=== PATIENT | male | born 1940 | race Caucasian/White ===

== ENCOUNTER → 2019-12-27 10:34 | Outpatient (BNVA) | payer MEDICARE, SELFPAY | PROVIDERS: PCP Internal Medicine Medical Oncology; Referring Provider Internal Medicine Medical Oncology; Visit Provider Internal Medicine Medical Oncology | DX: I48.20 Chronic atrial fibrillation, unspecified (principal); Z51.81 Encounter for therapeutic drug level monitoring; Z79.01 Long term (current) use of anticoagulants | CPT/HCPCS: 85610; 99211 ==

== ENCOUNTER 2020-01-03 16:24 | Emergency (ER) | payer MEDICARE, SELFPAY ==
--- NOTE | 2020-01-03 | XR_ITS ---
EXAMINATION: XR KNEE, RIGHT CLINICAL INFORMATION: Swelling COMPARISON: None TECHNIQUE: Two views of the right knee. FINDINGS: There is a large joint effusion. 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 There is no significant bone erosion. There is no fracture. There is no dislocation. Surgical clips seen at the posterior medial side of the knee. There is vascular stent at the posterior upper calf. IMPRESSION: 1. No acute abnormality. 2. Large joint effusion. 3. 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
--- NOTE | 2020-01-03 | US_ITS ---
EXAMINATION: US LOWER EXTREMITY VENOUS, RIGHT CLINICAL INFORMATION: Edema COMPARISON: None. TECHNIQUE: Doppler spectral analysis and color flow Doppler imaging was performed of the right lower extremity. Compression and augmentation maneuvers were performed. FINDINGS: Lower extremity venous ultrasound demonstrates no evidence of DVT. The common femoral, femoral, popliteal and calf veins were well identified and normal. They demonstrate normal compressibility and color fill-in. IMPRESSION: No evidence for a lower extremity deep vein thrombosis.
[2020-01-03 16:44] VITALS: BP 197/87; PULSE 75; RESP 20; TEMP 36; O2SAT 96; BMI 24.2
--- NOTE | 2020-01-03 17:19 | ED.EXTPRO ---
HPI - Extremity Problem General Chief complaint: Extremity Problem Stated complaint: r knee pain Time Seen by Provider: 01/03/20 17:14 Source: patient Mode of arrival: ambulatory Limitations: no limitations History of Present Illness HPI Narrative: 71-year-old male presents with several hours of right knee swelling. Stated that he went for a walk afternoon, started feeling pain is in his knee and noticed swelling around 1:00 p.m.. He did apply ice, took some Tylenol, however the swelling kept increasing along with the pain. He is unable to walk on it because of the pain. He does have a history of rheumatoid arthritis and has stents in his right leg. he does not report any chest pain or pressure, palpitations, shortness of breath, abdominal pain, abdominal distention, dysuria, hematuria, fevers and chills. He did not report any shortness of breath on exertion, or pain on inspiration. MD Complaint: extremity pain and extremity swelling Onset (ago): hour(s) ( 4 hours ago) Pain Consistency: constant Location: right and knee Severity scale (1-10): 9 Quality: aching and constant Radiation: none Relieving factors: nothing Exacerbating factors: range of motion, weight bearing, walking and exertion Associated symptoms: denies other symptoms Context: other ( rheumatoid arthritis, lower extremity stents) Related Data Previous Rx's Medication Instructions Recorded warfarin 1 mg tablet 1 mg PO DAILY #90 tab 12/28/19 oxycodone 5 mg PO Q8H PRN #10 tab 01/03/20 Allergies Allergy/AdvReac Type Severity Reaction Status Date / Time Ionidcg-Ijr-Szt Reductase AdvReac Mild LEG Unverified 12/13/19 15:01 Inhibitor PAIN/NUMBNESS/RESTLESSLESS [[id number] REDUCTASE INHIBITOR] Review of Systems Review of Systems: Yes all other systems are reviewed and are negative Constitutional: Constitutional: Reports no additional constitutional complaints Eyes: Eyes: Reports no additional eye complaints ENT: Reports system reviewed and no additional complaints, except as documented Cardiovascular: Cardiovascular: Reports no additional cardiovascular complaints Respiratory: Respiratory: Reports no additional respiratory complaints Gastrointestinal: Gastrointestinal: Reports no additional gastrointestinal complaints Genitourinary: Genitourinary: Reports no additional male genitourinary complaints Musculoskeletal: Musculoskeletal: Reports abnormal gait, Reports arthralgias, Reports joint swelling and Reports limited range of motion Integumentary/Breasts: Skin/Breast: Reports system reviewed and no additional complaints, except as docu Neurologic: Reports system reviewed and no additional complaints, except as documented and Reports abnormal gait Psychiatric: Psychiatric: Reports no additional psychiatric complaints Endocrine: Endocrine: Reports no additional endocrine complaints Hematologic/Lymphatic: Hematologic/Lymphatic: Reports no additional hematologic/lymphatic complaints [facility] Past Medical History Attestation statement: The following information was validated with the patient. Source: old records reviewed Medical History Atrial fibrillation Coronary artery disease Surgical History H/O cardiac catheterization H/O coronary artery bypass surgery Social History Social History Smoked in Last 30 Days: No Use of substances other than those prescribed or required for medical reasons: No Advance Directives: No Advance Directives Information Provided: Yes Physical Exam Vital Signs and I&O and Narrative: Vital Signs and I&O: Vital Signs Temp 96.8 F 01/03/20 16:44 Pulse 75 01/03/20 16:44 Resp 16 01/03/20 18:42 BP 197/87 H 01/03/20 16:44 Pulse Ox 96 01/03/20 16:44 Intake & Output 01/03/20 01/03/20 01/04/20 06:59 18:59 06:59 Weight 80.931 kg Body Mass Index 24.2 Const: General: cooperative, healthy appearing, comfortable, well developed, alert, awake, Physically active and acute distress moderate ( pain) Nutritional Appearance: average body habitus and well nourished Orientation/consciousness: patient oriented x3 Limitations: no limitations HENMT: Head: Yes normal to inspection Ears: hearing grossly normal bilaterally General nose exam: Normal external nose present Face and sinus: Yes normal facial exam Mouth: Normal oral and palatal mucosa present Throat: Yes posterior oropharynx normal, Yes tonsils normal and Yes uvula midline Eyes: General: appearance normal, both eyes and all related structures Pupils: Equal, round and reactive pupils present EOM: EOMs intact bilaterally Neck: Neck: Yes normal visual inspection, Yes full ROM and Yes no lymphadenopathy Chest: Chest palpation & inspection: normal inspection of the chest and normal palpation of entire chest wall Resp: Effort & Inspection: normal respiratory effort and able to speak in complete sentences Auscultation: clear to auscultation bilaterally Cardio: Jugular venous distension: no JVD Rate: regular rate Rhythm: regular rhythm Heart sounds: S1 normal heart sound present and S2 normal heart sound present GI: Inspection: Yes normal to inspection Skin: General skin exam: no rashes or lesions noted Neuro: General: patient oriented x3 and gait normal Cranial nerves: Yes CN's II-XII intact bilaterally, Yes Facial sensation intact/muscles of mastication intact, Yes Intact sense of smell present and Yes Equal, round and reactive pupils present Cognition (Neuro): normal cognition Motor exam (neuro): 5/5 motor strength present throughout Extrem: General: Yes normal to inspection, Yes full ROM, Yes capillary refill normal and Yes normal exam except as noted Right lower extremity: normal capillary refill and knee Details: tenderness Location: of the patella, of the pre-patellar area and of the infrapatellar area, swelling Location: of the patella, of the pre-patellar area and of the infrapatellar area and abnormal ROM Details: pain with active ROM during and pain with passive ROM during Psych: Appearance: grossly normal Mental Status: mental status grossly normal Speech and movement: Normal speech and movement present Affect: normal affect Attitude: cooperative Thought process: Normal thought process present Course Course Course Narrative: 79-year-old male with past medical history of AFib, rheumatoid arthritis, history of CABG presents with right knee swelling that started 4 hours prior to arrival. Patient has taken Tylenol and use ice and elevation to help reduce swelling with poor effect. We will order x-rays, venous duplex, CBC, Chem 7. tiger text discussion with Dr. Brewer, plan of care is for patient to follow-up with orthopedics for large knee effusion, suspected to be heme. His INR is 3.4 at this time, which contraindicate its tapping at this time. we will Juan Antonio wrap and provide pain management. MDM - Extremity (Nontraumatic) MDM Narrative Medical decision making narrative: hemarthrosis, effusion Differential Diagnosis Differential diagnosis: Likely gout, cellulitis, superficial thrombophlebitis and deep vein thrombosis of lower extremity Medical Records Attestation: I reviewed the patient's medical records. Lab Data Attestation: I reviewed the patient's lab results. Result diagrams: 01/03/20 18:31 01/03/20 18:31 Labs: Lab Results 01/03/20 01/03/20 01/03/20 Range/Units 18:31 18:31 18:31 WBC 10.8 (4.8-10.8) X10*3/uL RBC 4.05 L (4.60-5.80) X10*6/uL Hgb 11.9 L (14.0-18.0) g/dl Hct 36.2 L (42-52) % MCV 89.4 (80-98) fL MCH 29.4 (27.0-33.0) pg MCHC 32.9 (31.0-36.0) g/dl RDW 16.5 H (11.0-16.0) % Plt Count 328 (160-400) X10*3/uL MPV 8.7 L (9.4-12.4) fL Immature Gran % (Auto) 0.4 (0.0-0.4) % Neut % (Auto) 74.8 H (45-73) % Lymph % (Auto) 7.5 L (20-40) % [place] % (Auto) 15.7 H (2-11) % Eos % (Auto) 1.1 (0-4) % Baso % (Auto) 0.5 (0-2) % Lymph # (Auto) 0.8 L (1.2-4.9) X10*3/uL [place] # (Auto) 1.7 H (0.1-1.2) X10*3/uL Eos # (Auto) 0.1 (0.0-0.4) X10*3/uL Baso # (Auto) 0.1 (0.0-0.2) X10*3/uL Abs Immat Gran (auto) 0.04 H (0.00-0.03) X10*3/uL Absolute Neuts (auto) 8.1 (2.0-8.3) X10*3/uL Absolute Nucleated RBC 0.000 (0.0-0.012) X10*3/uL Nucleated RBC % (auto) 0.0 (0.0-0.2) /100WBC Smear Tech's Comments VERIFIED PT 40.3 H (10.8-13.0) SEC INR 3.4 H (0.9-1.1) APTT 53.3 H (24.1-38.0) SEC Sodium 137 (135-145) mmol/L Potassium 4.1 (3.3-5.1) mmol/l Chloride 105 (96-108) mmol/L Carbon Dioxide 19 L (22-29) mmol/L Anion Gap 17 (12-20) BUN 20 H (9-16) mg/dL Creatinine 1.17 (0.5-1.4) mg/dL Estim Creat Clear Calc 57.1 Estimated GFR > 60 Random Glucose 130 H (60-115) mg/dL Calcium 8.8 (8.4-10.2) mg/dL Imaging Data Venous US: Attestation: I personally reviewed and interpreted this imaging study as follows: Radiologist's impression: TECHNIQUE: Doppler spectral analysis and color flow Doppler imaging was performed of the right lower extremity. Compression and augmentation maneuvers were performed. FINDINGS: Lower extremity venous ultrasound demonstrates no evidence of DVT. The common femoral, femoral, popliteal and calf veins were well identified and normal. They demonstrate normal compressibility and color fill-in. IMPRESSION: No evidence for a lower extremity deep vein thrombosis. right knee x-ray: Attestation: I personally reviewed and interpreted this imaging study as follows: Radiologist's impression: FINDINGS: There is a large joint effusion. 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 There is no significant bone erosion. There is no fracture. There is no dislocation. Surgical clips seen at the posterior medial side of the knee. There is vascular stent at the posterior upper calf. IMPRESSION: 1. No acute abnormality. 2. Large joint effusion. 3. 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 Discharge Plan Discharge Clinical Impression: Effusion of bursa of right knee, Current use of anticoagulant therapy Patient Disposition: Home, Self-Care Instructions: Swollen Knee Joint (ED) Additional Instructions: you were evaluated for right knee swelling and pain. This is suspected to be a hemarthrosis, which is bleeding in the joint of the right knee. You have had similar episodes in the past. I contacted Dr. Brewer, and he would like to see you in the office tomorrow. please call and make an appointment. please use Juan Antonio wrap to keep pressure on the knee. I prescribed oxycodone which is a narcotic. This medication has high risk for addiction and abuse. This medication increases risk for falls, causes constipation, delays reaction time, and may cause drowsiness. Drink plenty of fluids, use Colace or MiraLax as needed keep stool soft. Do not drive or operate machinery while taking this medication. Your INR was 3.4. Please follow-up with whoever prescribes your Coumadin for Coumadin titration. Thank you for choosing this emergency department for evaluation. Please follow-up with primary care physician as needed. Return to the emergency department for any new, concerning, or worsening symptoms. Prescriptions: New oxycodone 5 mg tablet 5 mg PO Q8H PRN (Reason: pain) Qty: 10 RF: 0 No Action warfarin 1 mg tablet 1 mg PO DAILY Qty: 90 RF: 0 Referrals: Enrique Brewer MD [Physician] - 2 days ( large right knee effusion, suspected to be heme)
[2020-01-03 18:38] LABS: Basophils Absolute Auto 0.1 X10*3/uL (0.0-0.2); Basophils Percent Auto 0.5 % (0-2); Eosinophils Absolute Auto 0.1 X10*3/uL (0.0-0.4); Eosinophils Percent Auto 1.1 % (0-4); Hematocrit 36.2 % (42-52); Hemoglobin 11.9 g/dl (14.0-18.0); Imm Gran Abs Auto 0.04 X10*3/uL (0.00-0.03); Imm Gran Pct Auto 0.4 % (0.0-0.4); Lymphocytes Absolute Auto 0.8 X10*3/uL (1.2-4.9); Lymphocytes Percent Auto 7.5 % (20-40); MANUAL DIFF FLAG SCAN; Mean Corpuscular HGB Conc 32.9 g/dl (31.0-36.0); Mean Corpuscular Hemoglobin 29.4 pg (27.0-33.0); Mean Corpuscular Volume 89.4 fL (80-98); Mean Platelet Volume 8.7 fL (9.4-12.4); Monocytes Absolute Auto 1.7 X10*3/uL (0.1-1.2); Monocytes Percent Auto 15.7 % (2-11); Neutrophils Absolute Auto 8.1 X10*3/uL (2.0-8.3); Neutrophils Percent Auto 74.8 % (45-73); Platelet Count 328 X10*3/uL (160-400); Red Blood Count 4.05 X10*6/uL (4.60-5.80); Red Cell Distribution Width 16.5 % (11.0-16.0); SCAN SMEAR FLAG 1; White Blood Count 10.8 X10*3/uL (4.8-10.8)
[2020-01-03 18:42] VITALS: RESP 16
[2020-01-03] MEDS: Morphine Sulfate 4 MG/ML CARTRIDGE 2 MG IVPUSH (18:42)
[2020-01-03] MEDS: ondansetron HCL 4 MG/2 ML VIAL IVPUSH (18:42)
[2020-01-03 18:44] LABS: INTERNATIONAL NORM RATIO 3.4 (0.9-1.1); Prothrombin Time 40.3 SEC (10.8-13.0)
[2020-01-03 18:46] LABS: Partial Thromboplastin Time 53.3 SEC (24.1-38.0)
[2020-01-03 18:56] LABS: SLIDE REVIEW VERIFIED
[2020-01-03 19:09] LABS: Anion Gap 17 (12-20); Blood Urea Nitrogen 20 mg/dL (9-16); Calcium 8.8 mg/dL (8.4-10.2); Carbon Dioxide 19 mmol/L (22-29); Chloride 105 mmol/L (96-108); Creatinine Clr Calc Pharmacy 57.1; Estimated Glomerular Filt Rate > 60; Glucose Random 130 mg/dL (60-115); Potassium 4.1 mmol/l (3.3-5.1); Sodium 137 mmol/L (135-145)
[2020-01-03] MEDS: oxyCODONE HCl Immed Release 5 MG TABLET PO (19:50)
== END 2020-01-03 20:30 | disposition home or self-care (01) ==
PROVIDERS: Nurse Practitioner Family; Emergency Provider Emergency Medicine; PCP Internal Medicine Medical Oncology
DX: M25.461 Effusion, right knee (principal); M79.604 Pain in right leg; M25.561 Pain in right knee; I48.91 Unspecified atrial fibrillation; Z79.01 Long term (current) use of anticoagulants
CPT/HCPCS: 36415; 73560; 80048; 85025; 85610; 85730; 93971; 99283; 99284; J2270; J2405

== ENCOUNTER → 2020-01-04 11:57 | Outpatient (BNVA) | payer MEDICARE, SELFPAY | PROVIDERS: PCP Internal Medicine Medical Oncology; Visit Provider Orthopaedic Surgery | DX: M25.061 Hemarthrosis, right knee (principal); M25.561 Pain in right knee; I48.91 Unspecified atrial fibrillation; Z79.01 Long term (current) use of anticoagulants | CPT/HCPCS: 20610; 99213 ==

== ENCOUNTER 2020-01-05 16:07 | Emergency (ER) | payer MEDICARE, SELFPAY ==
[2020-01-05 16:10] VITALS: BP 133/70; PULSE 70; RESP 18; TEMP 36.6; O2SAT 99; BMI 24.2
--- NOTE | 2020-01-05 16:30 | PC.NURSE ---
PT STATES HE HAS HAD HIS RIGHT NOSTRIL BLEEDING FOR SINCE 2PM.
[2020-01-05] MEDS: Tranexamic Acid 1,000 MG/10 ML VIAL 500 MG INTRANASAL (17:11)
--- NOTE | 2020-01-05 17:27 | ED.GENADULT ---
HPI - General Adult General Chief complaint: General Medical Stated complaint: nose bleeding Time Seen by Provider: 01/05/20 16:37 History of Present Illness HPI narrative: patient complains of nose bleed times for 5 hours today that is just been bleeding slowly but continuously At home he has tried Afrin spray with no success, he also applied pressure for 15 minutes several times with no success, he is not dizzy or weak, he is not bleeding from any other site he has no new rash no new bruising The patient is on Coumadin and just 2 days ago his INR was 3.4, he has been taking the same Coumadin dose for many months Related Data Previous Rx's Medication Instructions Recorded warfarin 1 mg tablet 1 mg PO DAILY #90 tab 12/28/19 oxycodone 5 mg PO Q8H PRN #10 tab 01/03/20 Allergies Allergy/AdvReac Type Severity Reaction Status Date / Time Lnwcsnp-Pef-Zpx Reductase AdvReac Mild LEG Verified 01/04/20 12:07 Inhibitor PAIN/NUMBNESS/RESTLESSLESS [[id number] REDUCTASE INHIBITOR] Review of Systems Review of Systems: patient has no headache patient is not dizzy or weak, no chest pain no shortness of breath no rash no bruising no bleeding from any other site, no rectal bleeding, no abdominal pain no vomiting Yes all other systems are reviewed and are negative PMFSH Past Medical History Medical History (Updated 01/05/20 @ 18:11 by GRAHAM Cagle) Atrial fibrillation Coronary artery disease Hemarthrosis, right knee Surgical History H/O cardiac catheterization H/O coronary artery bypass surgery Social History Social History Alcohol intake: never Smoking Status: Former smoker Smoked in Last 30 Days: No Use of substances other than those prescribed or required for medical reasons: No Advance Directives: No Advance Directives Information Provided: Yes Physical Exam Vital Signs: Vital Signs: Vital Signs Temp Pulse Resp BP Pulse Ox 01/05/20 16:10 97.9 F 70 18 133/70 99 Body Mass Index 24.2 patient is A&O x3, no acute distress, cheerful and cooperative Patient is normocephalic atraumatic The nose is bleeding from the right nostril very slightly but continuously, the bleeding source is not identified The neck is supple The pharynx is clear with no bleeding No respiratory distress Abdomen is soft nontender Skin there are no rashes, no other bleeding Neuro A&O x3, no focal deficit Course Course Course Narrative: we tried to stop the slow bleeding with Tx a soaked gauze and direct pressure with a clip and left that for about 15 minutes when removed it there was again slow bleeding from the right nostril The patient remains comfortable cheerful no dizziness no weakness Rhino rocket was inserted and patient was observed for 15 minutes with no further bleeding and was discharged home INR was checked and it was 4.2 and patient was advised to not take his next dose of Coumadin and to call his Coumadin tip clinic for further advice on dosing Medical Decision Making Lab Data Labs: Lab Results 01/05/20 Range/Units 17:32 PT 50.4 H D (10.8-13.0) SEC INR 4.2 H (0.9-1.1) Discharge Plan Discharge Clinical Impression: Acute anterior epistaxis Patient Disposition: Home, Self-Care Additional Instructions: we placed packing in her nose and this should be removed in 2 days on Tuesday or Tuesday so return to the ER in 2 days for packing removal Return any time for bleeding, any worse condition any concerns Her INR was 4.2 so hold her next dose of Coumadin and call the Coumadin Clinic for advice on dosing Prescriptions: No Action oxycodone 5 mg tablet 5 mg PO Q8H PRN (Reason: pain) Qty: 10 RF: 0 warfarin 1 mg tablet 1 mg PO DAILY Qty: 90 RF: 0
--- NOTE | 2020-01-05 17:34 | PC.NURSE ---
PT HAD PS KENNEDI SPRAY RIGHT NOSTRIL WITH TRANEXAMIC ACID AND THEN GAUZE WITH NOSE CLAPS PLACED TO HOLD AREA IN PLACE.
[2020-01-05 17:45] LABS: INTERNATIONAL NORM RATIO 4.2 (0.9-1.1); Prothrombin Time 50.4 SEC (10.8-13.0)
--- NOTE | 2020-01-05 18:02 | PC.NURSE ---
PT STILL BLEEDING AFTER MEDICATION TO NOSE. GRAHAM KOLB PLACED RHINO ROCKET TO RIGHT NOSTRILE.
== END 2020-01-05 18:27 | disposition home or self-care (01) ==
PROVIDERS: Physician Assistant Medical; Emergency Provider Emergency Medicine Emergency Medical Services; PCP Internal Medicine Medical Oncology
DX: R04.0 Epistaxis (principal); Z87.891 Personal history of nicotine dependence
CPT/HCPCS: 36415; 85610; 99283; 99284

== ENCOUNTER 2020-01-07 09:23 | Emergency (ER) | payer MEDICARE, SELFPAY ==
[2020-01-07 09:38] VITALS: PULSE 85; RESP 16; TEMP 36.9; O2SAT 96; BMI 23.5
--- NOTE | 2020-01-07 09:55 | ED.EPISTAXIS ---
History of Present Illness General Chief Complaint: Epistaxis Stated Complaint: packing removal Time Seen by Provider: 01/07/20 09:55 Source: patient Mode of arrival: ambulatory Limitations: no limitations History of Present Illness Location: Yes right nares Onset/current episode: Yes day(s) (resolved was seen 3 days ago) Duration: Yes now resolved Pertinent past history: Yes other (on coumadin) Context: Yes history of previous nose bleed Treatment prior to arrival: Yes other (on Tuesday had nasal packing placed) Related Data Previous Rx's Medication Instructions Recorded warfarin 1 mg tablet 1 mg PO DAILY #90 tab 12/28/19 oxycodone 5 mg PO Q8H PRN #10 tab 01/03/20 Allergies Allergy/AdvReac Type Severity Reaction Status Date / Time Pwumktj-Yvm-Eoi Reductase AdvReac Mild LEG Verified 01/04/20 12:07 Inhibitor PAIN/NUMBNESS/RESTLESSLESS [[id number] REDUCTASE INHIBITOR] Review of Systems Review of Systems: Constitutional : No Fever, No Chills ENT/Mouth : No Ear Pain, positive Nasal Congestion, no nose bleed Eyes: No Eye Pain, No Swelling, No Redness Cardiovascular : No Chest Pain, No SOB Respiratory : No Cough, No Sputum Gastrointestinal : No Nausea, No Vomiting Genitourinary : No Dysuria, No Hematuria Musculoskeletal : No joint pain, No Myalgias Skin : No Skin Lesions, No rash Neuro : No Weakness, No Numbness, No headache Psych : No Anxiety/Panic, No Depression PMFSH Past Medical History Medical History (Updated 01/07/20 @ 09:58 by Kristine Jewell DO) Atrial fibrillation Coronary artery disease Hemarthrosis, right knee Surgical History (Updated 01/07/20 @ 09:58 by Kristine Jewell DO) H/O cardiac catheterization H/O coronary artery bypass surgery Heart valve replaced Social History Social History Alcohol intake: never Smoking Status: Former smoker Smoked in Last 30 Days: No Use of substances other than those prescribed or required for medical reasons: No Advance Directives: Yes Advance Directives Information Provided: Yes Advance Directives on File: No Physical Exam Vital Signs: Vital Signs: Vital Signs Temp Pulse Resp Pulse Ox 01/07/20 09:38 98.4 F 85 16 96 Body Mass Index 23.5 Appearance: Alert. Oriented X3. No acute distress. Eyes: Pupils equal, round and reactive to light. ENT: Pharynx normal. packing R nare no active bleeding nose or mouth Neck: Normal inspection. Neck supple. CVS: Normal rhythm Pulses normal. Respiratory: No respiratory distress. Breath sounds normal. Abdomen: Soft and nontender. Skin: Skin warm and dry. Normal skin color. Normal skin turgor. Extremities: No lower extremity edema. No calf ttp Neuro: Oriented X 3. No motor deficit. No sensory deficit. Course Course Course Narrative: removed packing after deflating balloon for 15 minutes, no bleeding recheck normal, stable for DC Procedures Foreign Body Removal Time Out Performed: yes Site: right and nare Description of foreign body: other (nasal packing) Sedation/Analgesia: none Technique: manual removal Confirmed by:: direct visualization Complications: none Post-procedure exam: awake, alert Neurovascular: normal distal pulse MDM - Epistaxis MDM Narrative Medical decision making narrative: 79 yo male on coumadin had nasal packing R nare on Tuesday - here for packing removal, at this time will deflate and then observe if no bleeding will remove Discharge Plan Discharge Clinical Impression: Epistaxis Patient Disposition: Home, Self-Care Instructions: Nosebleed (ED) Additional Instructions: DO NOT BLOW YOUR NOSE FOR 3 DAYS Prescriptions: No Action oxycodone 5 mg tablet 5 mg PO Q8H PRN (Reason: pain) Qty: 10 RF: 0 warfarin 1 mg tablet 1 mg PO DAILY Qty: 90 RF: 0
== END 2020-01-07 10:30 | disposition home or self-care (01) ==
LOC: HO.ED 09:59
PROVIDERS: Emergency Provider Emergency Medicine; PCP Internal Medicine Medical Oncology
DX: Z48.01 Encounter for change or removal of surgical wound dressing (principal); R04.0 Epistaxis; I48.91 Unspecified atrial fibrillation; Z79.01 Long term (current) use of anticoagulants
CPT/HCPCS: 99284

== ENCOUNTER → 2020-01-09 09:45 | Outpatient (BNVA) | payer MEDICARE, SELFPAY | PROVIDERS: PCP Internal Medicine Medical Oncology; Visit Provider Internal Medicine | DX: I48.20 Chronic atrial fibrillation, unspecified (principal); Z51.81 Encounter for therapeutic drug level monitoring; Z79.01 Long term (current) use of anticoagulants | CPT/HCPCS: 85610 ==

== ENCOUNTER → 2020-01-10 09:28 | Outpatient (BNVA) | payer MEDICARE, SELFPAY | PROVIDERS: PCP Internal Medicine Medical Oncology; Referring Provider Internal Medicine Medical Oncology; Visit Provider Orthopaedic Surgery | DX: M25.061 Hemarthrosis, right knee (principal) | CPT/HCPCS: 20610; 99213; J1100 ==

== ENCOUNTER → 2020-01-15 11:01 | Outpatient (BNVA) | payer MEDICARE, SELFPAY | PROVIDERS: PCP Internal Medicine Medical Oncology; Visit Provider Internal Medicine | DX: I48.20 Chronic atrial fibrillation, unspecified (principal); Z51.81 Encounter for therapeutic drug level monitoring; Z79.01 Long term (current) use of anticoagulants | CPT/HCPCS: 85610 ==

== ENCOUNTER → 2020-01-23 10:15 | Outpatient (BNVA) | payer MEDICARE, SELFPAY | PROVIDERS: PCP Internal Medicine Medical Oncology; Referring Provider Internal Medicine Medical Oncology; Visit Provider Internal Medicine | DX: I48.20 Chronic atrial fibrillation, unspecified (principal); Z51.81 Encounter for therapeutic drug level monitoring; Z79.01 Long term (current) use of anticoagulants | CPT/HCPCS: 85610; 99211 ==

== ENCOUNTER → 2020-02-06 10:24 | Outpatient (BNVA) | payer MEDICARE, SELFPAY | PROVIDERS: PCP Internal Medicine Medical Oncology; Visit Provider Internal Medicine | DX: I48.20 Chronic atrial fibrillation, unspecified (principal); Z51.81 Encounter for therapeutic drug level monitoring; Z79.01 Long term (current) use of anticoagulants | CPT/HCPCS: 85610; 99211 ==

== ENCOUNTER → 2020-02-07 10:02 | Outpatient (BNVA) | payer MEDICARE, SELFPAY | PROVIDERS: PCP Internal Medicine Medical Oncology; Referring Provider Internal Medicine Medical Oncology; Visit Provider Orthopaedic Surgery | DX: M25.061 Hemarthrosis, right knee (principal); M17.11 Unilateral primary osteoarthritis, right knee | CPT/HCPCS: 20610; 99212; J1100 ==

== ENCOUNTER → 2020-02-13 10:39 | Outpatient (BNVA) | payer MEDICARE, SELFPAY | PROVIDERS: PCP Internal Medicine Medical Oncology; Visit Provider Internal Medicine | DX: I48.20 Chronic atrial fibrillation, unspecified (principal); Z51.81 Encounter for therapeutic drug level monitoring; Z79.01 Long term (current) use of anticoagulants | CPT/HCPCS: 85610; 99211 ==

== ENCOUNTER 2020-02-14 09:27 | Outpatient (REF) | payer MEDICARE, SELFPAY ==
[2020-02-14 10:16] LABS: MANUAL DIFF FLAG NO
[2020-02-14 10:17] LABS: Basophils Percent Auto 0.4 % (0-2); Eosinophils Absolute Auto 0.1 X10*3/uL (0.0-0.4); Eosinophils Percent Auto 1.7 % (0-4); Hematocrit 37.5 % (42-52); Imm Gran Abs Auto 0.04 X10*3/uL (0.00-0.03); Imm Gran Pct Auto 0.5 % (0.0-0.4); Lymphocytes Absolute Auto 0.7 X10*3/uL (1.2-4.9); Mean Corpuscular Hemoglobin 30.5 pg (27.0-33.0); Mean Corpuscular Volume 95.2 fL (80-98); Mean Platelet Volume 9.4 fL (9.4-12.4); Monocytes Absolute Auto 1.4 X10*3/uL (0.1-1.2); Monocytes Percent Auto 17.7 % (2-11); Neutrophils Absolute Auto 5.5 X10*3/uL (2.0-8.3); Neutrophils Percent Auto 70.7 % (45-73); Platelet Count 285 X10*3/uL (160-400); Red Blood Count 3.94 X10*6/uL (4.60-5.80); White Blood Count 7.8 X10*3/uL (4.8-10.8)
[2020-02-14 11:01] LABS: Alanine Aminotransferase 31 U/L (0-40); Alkaline Phosphatase 63 U/L (39-117); Anion Gap 12 (12-20); Aspartate Amino Transferase 31 U/L (5-37); Bilirubin Total 0.6 mg/dL (0.0-1.0); Blood Urea Nitrogen 19 mg/dL (9-16); Calcium 9.1 mg/dL (8.4-10.2); Carbon Dioxide 27 mmol/L (22-29); Chloride 105 mmol/L (96-108); Cholesterol 115 mg/dL; Estimated Glomerular Filt Rate > 60; Glucose Fasting 104 mg/dL (60-99); HDL Cholesterol 48 mg/dL; LDL Cholesterol Calculated 51 mg/dl; Potassium 4.3 mmol/l (3.3-5.1); Sodium 140 mmol/L (135-145); Total Protein 7.6 g/dL (6.5-8.0); Triglycerides 83 mg/dL
== END 2020-02-14 09:28 | disposition home or self-care (01) ==
LOC: HO.LAB 09:27
PROVIDERS: PCP Internal Medicine Medical Oncology; Visit Provider Internal Medicine Medical Oncology
DX: E11.59 Type 2 diabetes mellitus with other circulatory complications (principal); E78.00 Pure hypercholesterolemia, unspecified; E66.3 Overweight
CPT/HCPCS: 36415; 80053; 80061; 85025

== ENCOUNTER 2020-02-21 23:09 | Emergency (ER) | payer MEDICARE, SELFPAY ==
[2020-02-21 23:16] VITALS: BP 167/68; BP 170/85; PULSE 76; PULSE 93; RESP 18; TEMP 36.9; O2SAT 97; BMI 29.5
[2020-02-21] MEDS: Silver Nitrate Applicator STICK..EA. 1 APPL TOPICAL (23:27)
[2020-02-21 23:30] VITALS: BP 167/68; PULSE 86; RESP 18; TEMP 36.9; O2SAT 98
--- NOTE | 2020-02-22 01:08 | ED.GENADULT ---
HPI - General Adult General Chief complaint: General Medical Stated complaint: nose bleed Time Seen by Provider: 02/21/20 23:23 Source: patient Mode of arrival: EMS History of Present Illness HPI narrative: Patient states that tonight started with right-sided nose bleed. No dizziness denies trauma patient on Eliquis secondary to artificial heart valve. No chest pain or shortness of breath Onset (ago): hour(s) (2) Relieving factors: none Exacerbating factors: none Treatments prior to arrival: none Related Data Previous Rx's Medication Instructions Recorded warfarin 1 mg tablet 1 mg PO DAILY #90 tab 12/28/19 oxycodone 5 mg PO Q8H PRN #10 tab 01/03/20 Allergies Allergy/AdvReac Type Severity Reaction Status Date / Time Rocywta-Kxi-Ocn Reductase AdvReac Mild LEG Verified 02/07/20 10:58 Inhibitor PAIN/NUMBNESS/RESTLESSLESS [[id number] REDUCTASE INHIBITOR] Review of Systems Review of Systems: Constitutional : No Weight loss, No Fever, No Chills, No Night Sweats, No Fatigue, No Malaise ENT/Mouth : No Hearing loss, No Ear Pain, No Nasal Congestion, No Sinus Pain, No Hoarseness, No sore throat, active bleeding to right nose Eyes: No Eye Pain, No Swelling, No Redness, No Foreign Body, No Discharge, No Vision Changes Cardiovascular : No Chest Pain, No SOB, No Dyspnea on Exertion, No Orthopnea, No Edema, No Palpitations Respiratory : No Cough, No Sputum, No Wheezing, No Smoke Exposure, No Dyspnea Gastrointestinal : No Nausea, No Vomiting, No Diarrhea, No Constipation, No abdominal Pain, No Hematochezia, No Melena Genitourinary : no irregular bleeding, No Dysuria, No Urinary Frequency, No Hematuria, No Urinary Incontinence, No Urgency, No Flank Pain, No Urinary Flow Changes, No Hesitancy Musculoskeletal : No joint pain, No Myalgias, No Joint Swelling Skin : No Skin Lesions, No rash Neuro : No Weakness, No Numbness, No Paresthesias, No Loss of Consciousness, No Dizziness, No Headache Psych : No Anxiety/Panic, No Depression, No SI/HI/AH/VH, No Social Issues, Heme/Lymph: No Bruising, No Bleeding,No Lymphadenopathy Endocrine : No Polyuria, No Polydipsia, No Temperature Intolerance [facility] Past Medical History Medical History Atrial fibrillation Coronary artery disease Hemarthrosis, right knee Osteoarthritis of right knee Surgical History H/O cardiac catheterization H/O coronary artery bypass surgery Heart valve replaced Family History Family History Father No problems noted. Mother No problems noted. Social History Social History Alcohol intake: never Smoking Status: Former smoker Smoked in Last 30 Days: No Advance Directives: No Advance Directives Information Provided: No Physical Exam Vital Signs: Vital Signs: Last Vital Signs Temp 98.4 F 02/21/20 23:30 Pulse 86 02/21/20 23:30 Resp 18 02/21/20 23:30 BP 167/68 H 02/21/20 23:30 Pulse Ox 98 02/21/20 23:30 Body Mass Index 29.5 Vital signs reviewed Appearance: Alert. Oriented X3. No acute distress. Eyes: Pupils equal, round and reactive to light. ENT: Pharynx normal. Right nares with anterior active bleeding. No posterior bleeding no lacerations Neck: Normal inspection. Neck supple. No lymph nodes noted. No crepitus CVS: Normal heart rate and rhythm. Pulses normal. Normal S1 and S2 Respiratory: No respiratory distress. Breath sounds normal. No Wheezing. No rales Abdomen: Soft and nontender. No rigidity. No distention. good BS x4 Skin: Skin warm and dry. Normal skin color. Normal skin turgor. Extremities: No lower extremity edema. Neurovascular intact to all extremities. No Lacerations. No Rash Neuro: Oriented X 3. No motor deficit. No sensory deficit. Moving all extermities. No slurred speech. Course Course Course Narrative: Patient is asked to pinch nose. Then asked to blow nose. Exam showed anterior bleeding. In which I used silver nitrate stick to cauterize. At this point patient was observed for several hours emergency department in which observed no further bleeding Medical Decision Making MDM Narrative Medical decision making narrative: 79-year-old male on anticoagulation came into emergency department secondary to right naris epistaxis. Identified the site and cauterized it. Observed without further bleeding Discharge Plan Discharge Clinical Impression: Right-sided epistaxis Patient Disposition: Home, Self-Care Instructions: Nosebleed (ED) Additional Instructions: Thank you for visiting the emergency department today. If your symptoms worsen or do not resolve completely please return to the emergency department immediately or call 911. If you have any questions please call your primary care physician Prescriptions: No Action oxycodone 5 mg tablet 5 mg PO Q8H PRN (Reason: pain) Qty: 10 RF: 0 warfarin 1 mg tablet 1 mg PO DAILY Qty: 90 RF: 0 Referrals: [facility] [Provider Group] - 2 days
[2020-02-22 01:18] VITALS: BP 174/75; PULSE 80; RESP 18; TEMP 36.5; O2SAT 100
== END 2020-02-22 01:18 | disposition home or self-care (01) ==
PROVIDERS: Emergency Provider Emergency Medicine
DX: R04.0 Epistaxis (principal); I25.10 Atherosclerotic heart disease of native coronary artery without angina pectoris; Z79.899 Other long term (current) drug therapy; Z87.891 Personal history of nicotine dependence; Z79.01 Long term (current) use of anticoagulants
CPT/HCPCS: 99284

== ENCOUNTER → 2020-05-08 09:48 | Outpatient (BNVA) | payer MEDICARE, SELFPAY | PROVIDERS: Visit Provider Orthopaedic Surgery | DX: M17.11 Unilateral primary osteoarthritis, right knee (principal); M25.061 Hemarthrosis, right knee | CPT/HCPCS: 99212 ==

== ENCOUNTER 2020-06-10 10:30 | Outpatient (REF) | payer MEDICARE, SELFPAY ==
[2020-06-10 11:17] LABS: MANUAL DIFF FLAG NO
[2020-06-10 11:30] LABS: Estimated Average Glucose 126 mg/dL
[2020-06-10 11:34] LABS: Basophils Percent Auto 0.4 % (0-2); Eosinophils Absolute Auto 0.1 X10*3/uL (0.0-0.4); Eosinophils Percent Auto 1.6 % (0-4); Hematocrit 39.9 % (42-52); Hemoglobin 13.1 g/dl (14.0-18.0); Imm Gran Abs Auto 0.03 X10*3/uL (0.00-0.03); Imm Gran Pct Auto 0.4 % (0.0-0.4); Lymphocytes Absolute Auto 0.7 X10*3/uL (1.2-4.9); Lymphocytes Percent Auto 9.8 % (20-40); Mean Corpuscular HGB Conc 32.8 g/dl (31.0-36.0); Mean Corpuscular Hemoglobin 31.2 pg (27.0-33.0); Mean Platelet Volume 9.3 fL (9.4-12.4); Monocytes Absolute Auto 1.2 X10*3/uL (0.1-1.2); Monocytes Percent Auto 16.2 % (2-11); Neutrophils Absolute Auto 5.4 X10*3/uL (2.0-8.3); Neutrophils Percent Auto 71.6 % (45-73); Platelet Count 224 X10*3/uL (160-400); Red Cell Distribution Width 13.5 % (11.0-16.0); White Blood Count 7.5 X10*3/uL (4.8-10.8)
[2020-06-10 11:50] LABS: B Type Natriuretic Peptide 210 pg/mL (<100)
[2020-06-10 11:52] LABS: Alanine Aminotransferase 24 U/L (0-40); Albumin Level 4.3 g/dL (3.5-5.0); Alkaline Phosphatase 64 U/L (39-117); Anion Gap 14 (12-20); Aspartate Amino Transferase 32 U/L (5-37); Blood Urea Nitrogen 22 mg/dL (9-16); Calcium 9.5 mg/dL (8.4-10.2); Carbon Dioxide 27 mmol/L (22-29); Chloride 105 mmol/L (96-108); Cholesterol 123 mg/dL; Estimated Glomerular Filt Rate 50; Glucose Fasting 109 mg/dL (60-99); HDL Cholesterol 48 mg/dL; LDL Cholesterol Calculated 59 mg/dl; Potassium 4.5 mmol/L (3.3-5.1); Sodium 141 mmol/L (135-145); Total Protein 7.9 g/dL (6.5-8.0); Triglycerides 82 mg/dL
== END 2020-06-10 10:31 | disposition home or self-care (01) ==
LOC: HO.LAB 10:30
PROVIDERS: PCP Internal Medicine Medical Oncology; Visit Provider Internal Medicine Medical Oncology
DX: I48.91 Unspecified atrial fibrillation (principal); E78.00 Pure hypercholesterolemia, unspecified; E11.59 Type 2 diabetes mellitus with other circulatory complications
CPT/HCPCS: 36415; 80053; 80061; 83036; 83880; 85025

== ENCOUNTER 2020-08-13 10:12 | Outpatient (REF) | payer MEDICARE, SELFPAY ==
[2020-08-13 11:34] LABS: MANUAL DIFF FLAG NO
[2020-08-13 11:47] LABS: Basophils Percent Auto 0.4 % (0-2); Eosinophils Absolute Auto 0.2 X10*3/uL (0.0-0.4); Eosinophils Percent Auto 1.8 % (0-4); Hematocrit 37.9 % (42-52); Hemoglobin 12.5 g/dl (14.0-18.0); Imm Gran Abs Auto 0.03 X10*3/uL (0.00-0.03); Imm Gran Pct Auto 0.4 % (0.0-0.4); Lymphocytes Absolute Auto 0.8 X10*3/uL (1.2-4.9); Lymphocytes Percent Auto 10.1 % (20-40); Mean Corpuscular Hemoglobin 30.8 pg (27.0-33.0); Mean Corpuscular Volume 93.3 fL (80-98); Monocytes Absolute Auto 1.4 X10*3/uL (0.1-1.2); Monocytes Percent Auto 16.8 % (2-11); Neutrophils Absolute Auto 5.8 X10*3/uL (2.0-8.3); Neutrophils Percent Auto 70.5 % (45-73); Platelet Count 221 X10*3/uL (160-400); Red Blood Count 4.06 X10*6/uL (4.60-5.80); White Blood Count 8.2 X10*3/uL (4.8-10.8)
[2020-08-13 12:18] LABS: Alanine Aminotransferase 26 U/L (0-40); Albumin Level 4.2 g/dL (3.5-5.0); Alkaline Phosphatase 64 U/L (39-117); Anion Gap 14 (12-20); Aspartate Amino Transferase 32 U/L (5-37); Bilirubin Total 0.8 mg/dL (0.0-1.0); Blood Urea Nitrogen 19 mg/dL (9-16); Calcium 9.5 mg/dL (8.4-10.2); Carbon Dioxide 25 mmol/L (22-29); Chloride 103 mmol/L (96-108); Cholesterol 120 mg/dL; Estimated Glomerular Filt Rate 51; Glucose Random 103 mg/dL (60-115); HDL Cholesterol 47 mg/dL; LDL Cholesterol Calculated 60 mg/dl; Potassium 4.2 mmol/L (3.3-5.1); Sodium 138 mmol/L (135-145); Total Protein 7.7 g/dL (6.5-8.0); Triglycerides 67 mg/dL
== END 2020-08-13 10:13 | disposition home or self-care (01) ==
LOC: HO.LAB 10:12
PROVIDERS: PCP Internal Medicine Medical Oncology; Visit Provider Internal Medicine Medical Oncology
DX: I48.91 Unspecified atrial fibrillation (principal); E78.00 Pure hypercholesterolemia, unspecified
CPT/HCPCS: 36415; 80053; 80061; 85025

== ENCOUNTER 2020-11-12 09:46 | Outpatient (REF) | payer MEDICARE, SELFPAY ==
[2020-11-12 10:23] LABS: MANUAL DIFF FLAG NO
[2020-11-12 10:32] LABS: Basophils Percent Auto 0.4 % (0-2); Eosinophils Absolute Auto 0.1 X10*3/uL (0.0-0.4); Eosinophils Percent Auto 1.2 % (0-4); Hematocrit 40.2 % (42-52); Hemoglobin 13.3 g/dl (14.0-18.0); Imm Gran Abs Auto 0.02 X10*3/uL (0.00-0.03); Imm Gran Pct Auto 0.3 % (0.0-0.4); Lymphocytes Absolute Auto 0.7 X10*3/uL (1.2-4.9); Lymphocytes Percent Auto 8.8 % (20-40); Mean Corpuscular HGB Conc 33.1 g/dl (31.0-36.0); Mean Corpuscular Hemoglobin 30.9 pg (27.0-33.0); Mean Corpuscular Volume 93.3 fL (80-98); Mean Platelet Volume 9.2 fL (9.4-12.4); Monocytes Absolute Auto 1.2 X10*3/uL (0.1-1.2); Monocytes Percent Auto 16.3 % (2-11); Neutrophils Absolute Auto 5.4 X10*3/uL (2.0-8.3); Platelet Count 229 X10*3/uL (160-400); Red Blood Count 4.31 X10*6/uL (4.60-5.80); Red Cell Distribution Width 13.8 % (11.0-16.0); White Blood Count 7.4 X10*3/uL (4.8-10.8)
[2020-11-12 10:56] LABS: B Type Natriuretic Peptide 267 pg/mL (<100)
[2020-11-12 11:15] LABS: Alanine Aminotransferase 24 U/L (0-40); Albumin Level 4.2 g/dL (3.5-5.0); Alkaline Phosphatase 61 U/L (39-117); Anion Gap 16 (12-20); Aspartate Amino Transferase 31 U/L (5-37); Bilirubin Total 0.8 mg/dL (0.0-1.0); Blood Urea Nitrogen 19 mg/dL (9-16); Calcium 9.6 mg/dL (8.4-10.2); Carbon Dioxide 23 mmol/L (22-29); Chloride 104 mmol/L (96-108); Cholesterol 111 mg/dL; Estimated Glomerular Filt Rate 52; Glucose Fasting 108 mg/dL (60-99); HDL Cholesterol 43 mg/dL; LDL Cholesterol Calculated 54 mg/dl; Potassium 4.5 mmol/L (3.3-5.1); Sodium 138 mmol/L (135-145); Total Protein 7.8 g/dL (6.5-8.0); Triglycerides 73 mg/dL
[2020-11-12 11:19] LABS: Estimated Average Glucose 128 mg/dL; Hemoglobin A1c % 6.1 %
[2020-11-12 12:58] LABS: Creatinine Urine 32.82 mg/dL; Microalbum/Creatinine Ratio Ur 36.5 ug/mg cr
== END 2020-11-12 09:47 | disposition home or self-care (01) ==
LOC: HO.LAB 09:46
PROVIDERS: PCP Internal Medicine Medical Oncology; Visit Provider Internal Medicine Medical Oncology
DX: I48.91 Unspecified atrial fibrillation (principal); E78.00 Pure hypercholesterolemia, unspecified; E11.59 Type 2 diabetes mellitus with other circulatory complications; I35.0 Nonrheumatic aortic (valve) stenosis; I50.9 Heart failure, unspecified
CPT/HCPCS: 36415; 80053; 80061; 82043; 83036; 83880; 85025

== ENCOUNTER 2020-12-25 22:01 | Emergency (ER) | payer MEDICARE, SELFPAY ==
[2020-12-25 22:14] VITALS: BP 190/77; PULSE 53; RESP 12; TEMP 36.6; O2SAT 96; BMI 23.6
[2020-12-25] MEDS: Tranexamic Acid 1,000 MG/10 ML VIAL 500 MG IRRIGATION (23:14)
--- NOTE | 2020-12-25 23:36 | PC.NURSE ---
TXA PLACED ON GAUZE AND PLACED OVER LEFT UPPER GUM.
--- NOTE | 2020-12-26 00:20 | PC.NURSE ---
BLEEDING IS STARTING TO SLOW, LARGE CLOT REMOVED WITH GAUZE. AIRWAY CONTROLLED. PT HAS SUCTION TO USE WHEN SECRETIONS ACCUMULATE.
--- NOTE | 2020-12-26 00:48 | PC.NURSE ---
PT ENCOURAGED TO KEEP SAME GAUZE IN PLACE AND USE SUCTION, TO PREVENT REMOVAL OF NEWLY FORMED CLOT.
[2020-12-26] MEDS: Lidocaine HCl 2%/Epi 1:100,000 20 ML VIAL INFILTRATI (01:16)
--- NOTE | 2020-12-26 01:45 | ED_ITS ---
HPI - Dental/Oral General Chief complaint: Dental/Oral Stated complaint: bleeding from tooth extraction Time Seen by Provider: 12/25/20 22:52 Source: patient Mode of arrival: EMS Limitations: no limitations History of Present Illness HPI Narrative: Patient's Esteban had the left upper premolar tooth extraction tooth 13. yesterday was stop Xarelto 2 days prior to that but he took Xarelto today now comes here with bleeding which continued post extraction and getting worse now patient history of similar episode last year when patient need to be transferred to [place] to see a maxillofacial surgeon Related Data Previous Rx's Medication Instructions Recorded warfarin 1 mg tablet 1 mg PO DAILY #90 tab 12/28/19 oxycodone 5 mg tablet 5 mg PO Q8H PRN #10 tab 01/03/20 Allergies Allergy/AdvReac Type Severity Reaction Status Date / Time Uhjomaa-Uxu-Ldv Reductase AdvReac Mild LEG Verified 02/07/20 10:58 Inhibitor PAIN/NUMBNESS/RESTLESSLESS [[id number] REDUCTASE INHIBITOR] Review of Systems Review of Systems: Yes all other systems are reviewed and are negative [facility] Past Medical History Medical History Atrial fibrillation Coronary artery disease Hemarthrosis, right knee Osteoarthritis of right knee Surgical History H/O cardiac catheterization H/O coronary artery bypass surgery Heart valve replaced Family History Family History Father No problems noted. Mother No problems noted. Social History Social History Alcohol intake: never Advance Directives: No Advance Directives Information Provided: No Physical Exam Vital Signs: Vital Signs: Last Vital Signs Temp 97.8 F 12/25/20 22:14 Pulse 88 12/26/20 02:29 Resp 16 12/26/20 02:29 BP 200/99 H 12/26/20 02:29 Pulse Ox 99 12/26/20 02:29 Body Mass Index 23.6 Const: General: healthy appearing and comfortable Orientation/consciousness: patient oriented x3 HENMT: Teeth image: 1. Status post tooth extraction with active bleeding Eyes: General: appearance normal, both eyes and all related structures Resp: Effort & Inspection: normal respiratory effort Auscultation: clear to auscultation bilaterally Cardio: Palpation: normal PMI Rate: regular rate Rhythm: regular rhythm Heart sounds: S1 normal heart sound present and S2 normal heart sound present GI: Inspection: Yes normal to inspection Palpation (GI): Soft to palpation and nontender Skin: General skin exam: no rashes or lesions noted Neuro: General: patient oriented x3 Course Reevaluation(s) Reevaluation #1: Patient post extraction active bleeding on Xarelto requiring multiple or sting sutures using Vicryl 3 or lidocaine with epi and Surgicel and used silver nitrate at this time bleeding seems to be with the minimal will watch him overnight and if bleeding stops will discharge him in the morning Time: 02:29 Procedures Laceration Laceration 1: Site: other (Mouth) Side (If applicable): left Local Anesthetic: lidocaine 1% and with epi Skin layer closed with: vicryl Size (cm): 3-0 Number of sutures: 5 Technique: horizontal mattress Discharge Plan Discharge Clinical Impression: Gums, bleeding Patient Disposition: Home, Self-Care Instructions: Tooth Extraction (DC) Additional Instructions: Local care as advised Follow up with oral surgery Hold Xarelto until bleeding stops completely Prescriptions: No Action oxycodone 5 mg tablet 5 mg PO Q8H PRN (Reason: pain) Qty: 10 RF: 0 warfarin 1 mg tablet 1 mg PO DAILY Qty: 90 RF: 0
--- NOTE | 2020-12-26 01:51 | PC.NURSE ---
MD AT BEDSIDE WITH ASSIST OF PCT FOR BLEEDING CONTROL AND SUTURES.
--- NOTE | 2020-12-26 02:13 | PC.NURSE ---
PLAN IS TO KEEP PT OVERNIGHT TO MONITOR BLEEDING.
[2020-12-26 02:29] VITALS: BP 200/99; PULSE 88; RESP 16; O2SAT 99
[2020-12-26] MEDS: Morphine Sulfate 2 MG/ML CARTRIDGE IM (02:40)
[2020-12-26] MEDS: Silver Nitrate Applicator STICK..EA. 2 APPL TOPICAL (03:06)
--- NOTE | 2020-12-26 03:50 | PC.NURSE ---
LEFT MESSAGE FOR , PER REQUEST OF PATIENT. PT REQUESTING TO LEAVE, AND REPORTS THAT HE'S HUNGRY. PT OFFERED AN ENSURE SHAKE, BUT REFUSED. BLEEDING HAS SLOWED, MOSTLY BLOOD TINGED SALIVA ON GAUZE.
--- NOTE | 2020-12-26 05:57 | PC.NURSE ---
PT REMOVED GAUZE ON HIS OWN, BLEEDING SLOWED CONSIDERABLY. PT GIVEN GAUZE TO OLACE IN CASE BLEEDING STARTS AGAIN. PT GIVEN PUDDING, ABLE TO EAT WITHOUT PROBLEM. PT NEVER COMPLAINED OF NAUSEA.
[2020-12-26 06:47] VITALS: BP 138/68; PULSE 90; RESP 16; O2SAT 96
--- NOTE | 2020-12-26 07:45 | PC.NURSE ---
pt medically cleared for discharge. Overnight RN contacted pt's to pick him up.
== END 2020-12-26 07:34 | disposition home or self-care (01) ==
PROVIDERS: Emergency Provider Internal Medicine
DX: S01.512A Laceration without foreign body of oral cavity, initial encounter (principal); K91.840 Postprocedural hemorrhage of a digestive system organ or structure following a digestive system procedure; X58.XXXA Exposure to other specified factors, initial encounter; Y93.9 Activity, unspecified; Y92.9 Unspecified place or not applicable; Y99.9 Unspecified external cause status; Z79.899 Other long term (current) drug therapy; Z79.01 Long term (current) use of anticoagulants
CPT/HCPCS: 41250; 96372; 99284; J2270

== ENCOUNTER 2021-02-17 08:57 | Outpatient (REF) | payer MEDICARE, SELFPAY ==
[2021-02-17 09:11] LABS: MANUAL DIFF FLAG NO
[2021-02-17 09:47] LABS: Basophils Percent Auto 0.2 % (0-2); Eosinophils Absolute Auto 0.2 X10*3/uL (0.0-0.4); Eosinophils Percent Auto 2.8 % (0-4); Hematocrit 36.1 % (42.0-52.0); Hemoglobin 11.9 g/dl (14.0-18.0); Imm Gran Abs Auto 0.02 X10*3/uL (0.00-0.03); Imm Gran Pct Auto 0.2 % (0.0-0.4); Lymphocytes Absolute Auto 0.7 X10*3/uL (1.2-4.9); Lymphocytes Percent Auto 8.5 % (20-40); Mean Corpuscular Hemoglobin 31.6 pg (27.0-33.0); Mean Corpuscular Volume 95.8 fL (80.0-98.0); Mean Platelet Volume 9.4 fL (9.4-12.4); Monocytes Absolute Auto 1.3 X10*3/uL (0.1-1.2); Monocytes Percent Auto 15.5 % (2-11); Neutrophils Absolute Auto 6.3 x10*3/uL (2.0-8.3); Neutrophils Percent Auto 72.8 % (45-73); Platelet Count 256 X10*3/uL (160-400); Red Blood Count 3.77 X10*6/uL (4.60-5.80); Red Cell Distribution Width 13.3 % (11.0-16.0); White Blood Count 8.6 X10*3/uL (4.8-10.8)
[2021-02-17 10:29] LABS: Alanine Aminotransferase 21 U/L (0-40); Albumin Level 4.1 g/dL (3.5-5.0); Alkaline Phosphatase 56 U/L (39-117); Anion Gap 11 (12-20); Aspartate Amino Transferase 29 U/L (5-37); Bilirubin Total 0.6 mg/dL (0.0-1.0); Blood Urea Nitrogen 20 mg/dL (9-16); Calcium 9.2 mg/dL (8.4-10.2); Carbon Dioxide 25 mmol/L (22-29); Chloride 109 mmol/L (96-108); Cholesterol 115 mg/dL; Estimated Glomerular Filt Rate 52; Glucose Fasting 116 mg/dL (60-99); HDL Cholesterol 46 mg/dL; LDL Cholesterol Calculated 56 mg/dl; Potassium 4.4 mmol/L (3.3-5.1); Sodium 141 mmol/L (135-145); Total Protein 7.7 g/dL (6.5-8.0); Triglycerides 69 mg/dL
[2021-02-17 10:35] LABS: Prostate Specific Antigen 0.78 ng/mL (<0.05-4.0)
== END 2021-02-17 08:58 | disposition home or self-care (01) ==
LOC: HO.LAB 08:57
PROVIDERS: PCP Internal Medicine Medical Oncology; Visit Provider Internal Medicine Medical Oncology
DX: Z12.5 Encounter for screening for malignant neoplasm of prostate (principal); I48.91 Unspecified atrial fibrillation; E11.59 Type 2 diabetes mellitus with other circulatory complications; E78.00 Pure hypercholesterolemia, unspecified; Z79.01 Long term (current) use of anticoagulants
CPT/HCPCS: 36415; 80053; 80061; 84153; 85025

== ENCOUNTER 2021-05-19 10:51 | Outpatient (REF) | payer MEDICARE, SELFPAY ==
[2021-05-19 11:39] LABS: Basophils Percent Auto 0.5 % (0-2); Eosinophils Absolute Auto 0.2 X10*3/uL (0.0-0.4); Eosinophils Percent Auto 2.5 % (0-4); Hematocrit 37.1 % (42.0-52.0); Hemoglobin 12.2 g/dl (14.0-18.0); Imm Gran Abs Auto 0.03 X10*3/uL (0.00-0.03); Imm Gran Pct Auto 0.4 % (0.0-0.4); Lymphocytes Absolute Auto 0.6 X10*3/uL (1.2-4.9); Lymphocytes Percent Auto 7.4 % (20-40); MANUAL DIFF FLAG NO; Mean Corpuscular HGB Conc 32.9 g/dl (31.0-36.0); Mean Corpuscular Hemoglobin 30.7 pg (27.0-33.0); Mean Corpuscular Volume 93.2 fL (80.0-98.0); Mean Platelet Volume 9.2 fL (9.4-12.4); Monocytes Absolute Auto 1.4 X10*3/uL (0.1-1.2); Monocytes Percent Auto 16.3 % (2-11); Neutrophils Absolute Auto 6.2 x10*3/uL (2.0-8.3); Neutrophils Percent Auto 72.9 % (45-73); Platelet Count 240 X10*3/uL (160-400); Red Blood Count 3.98 X10*6/uL (4.60-5.80); Red Cell Distribution Width 15.5 % (11.0-16.0); White Blood Count 8.5 X10*3/uL (4.8-10.8)
[2021-05-19 13:14] LABS: Alanine Aminotransferase 27 U/L (0-40); Albumin Level 3.8 g/dL (3.5-5.0); Alkaline Phosphatase 60 U/L (39-117); Anion Gap 13 (12-20); Aspartate Amino Transferase 35 U/L (5-37); Blood Urea Nitrogen 24 mg/dL (9-16); Calcium 9.2 mg/dL (8.4-10.2); Carbon Dioxide 25 mmol/L (22-29); Chloride 106 mmol/L (96-108); Cholesterol 101 mg/dL; Estimated Glomerular Filt Rate 49; Glucose Fasting 107 mg/dL (60-99); HDL Cholesterol 41 mg/dL; LDL Cholesterol Calculated 47 mg/dl; Potassium 4.5 mmol/L (3.3-5.1); Sodium 139 mmol/L (135-145); Total Protein 7.3 g/dL (6.5-8.0); Triglycerides 67 mg/dL
[2021-05-19 13:33] LABS: Prostate Specific Antigen 0.98 ng/mL (<0.05-4.0); Vitamin D 25-OH Total 40.5 ng/mL (>30)
== END 2021-05-19 10:52 | disposition home or self-care (01) ==
LOC: HO.LAB 10:51
PROVIDERS: PCP Internal Medicine Medical Oncology; Visit Provider Internal Medicine Medical Oncology
DX: Z12.5 Encounter for screening for malignant neoplasm of prostate (principal); E11.59 Type 2 diabetes mellitus with other circulatory complications; E78.00 Pure hypercholesterolemia, unspecified
CPT/HCPCS: 36415; 80053; 80061; 82306; 84153; 85025

== ENCOUNTER 2021-08-18 09:39 | Outpatient (REF) | payer MEDICARE, SELFPAY ==
[2021-08-18 10:07] LABS: MANUAL DIFF FLAG NO
[2021-08-18 10:44] LABS: Basophils Percent Auto 0.5 % (0-2); Eosinophils Absolute Auto 0.2 X10*3/uL (0.0-0.4); Hematocrit 40.4 % (42.0-52.0); Hemoglobin 13.3 g/dl (14.0-18.0); Imm Gran Abs Auto 0.03 X10*3/uL (0.00-0.03); Imm Gran Pct Auto 0.4 % (0.0-0.4); Lymphocytes Absolute Auto 0.6 X10*3/uL (1.2-4.9); Lymphocytes Percent Auto 8.6 % (20-40); Mean Corpuscular HGB Conc 32.9 g/dl (31.0-36.0); Mean Corpuscular Hemoglobin 30.8 pg (27.0-33.0); Mean Corpuscular Volume 93.5 fL (80.0-98.0); Mean Platelet Volume 9.4 fL (9.4-12.4); Monocytes Absolute Auto 1.3 X10*3/uL (0.1-1.2); Monocytes Percent Auto 17.6 % (2-11); Neutrophils Absolute Auto 5.1 x10*3/uL (2.0-8.3); Neutrophils Percent Auto 69.9 % (45-73); Platelet Count 233 X10*3/uL (160-400); Red Blood Count 4.32 X10*6/uL (4.60-5.80); Red Cell Distribution Width 13.6 % (11.0-16.0); White Blood Count 7.3 X10*3/uL (4.8-10.8)
[2021-08-18 10:56] LABS: Estimated Average Glucose 137 mg/dL; Hemoglobin A1c % 6.4 %
[2021-08-18 11:00] LABS: Creatinine Urine 28.16 mg/dL; Microalbum/Creatinine Ratio Ur 49.7 ug/mg cr
[2021-08-18 11:13] LABS: Alanine Aminotransferase 22 U/L (0-40); Albumin Level 3.8 g/dL (3.5-5.0); Alkaline Phosphatase 62 U/L (39-117); Anion Gap 13 (12-20); Aspartate Amino Transferase 28 U/L (5-37); Blood Urea Nitrogen 21 mg/dL (9-16); Calcium 9.5 mg/dL (8.4-10.2); Carbon Dioxide 25 mmol/L (22-29); Chloride 104 mmol/L (96-108); Cholesterol 102 mg/dL; Estimated Glomerular Filt Rate 51; Glucose Fasting 103 mg/dL (60-99); HDL Cholesterol 36 mg/dL; LDL Cholesterol Calculated 50 mg/dl; Potassium 4.8 mmol/L (3.3-5.1); Sodium 137 mmol/L (135-145); Total Protein 7.5 g/dL (6.5-8.0); Triglycerides 83 mg/dL
== END 2021-08-18 09:40 | disposition home or self-care (01) ==
LOC: HO.LAB 09:39
PROVIDERS: PCP Internal Medicine Medical Oncology; Visit Provider Internal Medicine Medical Oncology
DX: E11.59 Type 2 diabetes mellitus with other circulatory complications (principal); I50.9 Heart failure, unspecified
CPT/HCPCS: 36415; 80053; 80061; 82043; 83036; 85025

== ENCOUNTER → 2021-12-14 10:22 | Outpatient (BNVA) | payer MEDICARE, SELFPAY | PROVIDERS: PCP Internal Medicine Medical Oncology; Visit Provider Orthopaedic Surgery | DX: M17.11 Unilateral primary osteoarthritis, right knee (principal); M25.061 Hemarthrosis, right knee; Z79.01 Long term (current) use of anticoagulants | CPT/HCPCS: 20610; 99212; J1100 ==

== ENCOUNTER 2022-01-25 11:52 | Outpatient (REF) | payer MEDICARE, SELFPAY ==
--- NOTE | ~2022-01-25 | XR_ITS ---
EXAMINATION: XR LUMBAR SPINE CLINICAL INFORMATION: Low back pain COMPARISON: None TECHNIQUE: Frontal lateral and coned-down L5-S1 frontal lateral FINDINGS: Five ehy-cjk-uhlezts lumbar vertebrae were identified maintaining normal height and alignments. Narrowing of intervertebral disc spaces suggest underlying degenerative disc disease. Heavy aortic vascular calcifications. Paravertebral soft tissues are unremarkable. There are radiolucencies, most likely superimposed bowel gas.. No radiographic evidence of osteolytic or osteoblastic lesions. XR/XR lumbar spine 4V min IMPRESSION: *No fracture *Bone alignments are satisfactory. *Narrowing of intervertebral disc spaces suggest underlying degenerative disc disease. . *Heavy aortic vascular calcifications.
--- NOTE | ~2022-01-25 | XR_ITS ---
EXAMINATION: XR KNEE, RIGHT CLINICAL INFORMATION: Right knee pain COMPARISON: 01/03/2020 TECHNIQUE: Two views of the right knee. FINDINGS: Large joint effusion again seen, increased from prior study. Vascular calcifications, surgical clips, and a stent are again noted. There is worsened tricompartmental osteoarthritis greatest in the medial compartment with joint space narrowing, sclerosis, and osteophytosis. XR/XR knee RT 2V IMPRESSION: Worsened large joint effusion. Consider arthrocentesis as clinically indicated. Worsened tricompartmental osteoarthritis.
== END 2022-01-25 11:53 | disposition home or self-care (01) ==
LOC: HO.XRAY 11:52
PROVIDERS: PCP Internal Medicine Medical Oncology; Visit Provider Internal Medicine Medical Oncology
DX: M54.50 Low back pain, unspecified (principal); M25.561 Pain in right knee; Z91.81 History of falling
CPT/HCPCS: 72110; 73560

== ENCOUNTER → 2022-01-27 08:44 | Outpatient (BNVA) | payer MEDICARE, SELFPAY | PROVIDERS: PCP Internal Medicine Medical Oncology; Visit Provider Physician Assistant | DX: M17.11 Unilateral primary osteoarthritis, right knee (principal); M25.061 Hemarthrosis, right knee | CPT/HCPCS: 20610; 99212 ==

== ENCOUNTER → 2022-03-01 10:25 | Outpatient (BNVA) | payer MEDICARE, SELFPAY | PROVIDERS: PCP Internal Medicine Medical Oncology; Visit Provider Orthopaedic Surgery | DX: M17.11 Unilateral primary osteoarthritis, right knee (principal); M25.061 Hemarthrosis, right knee; M25.561 Pain in right knee; I48.91 Unspecified atrial fibrillation; Z79.01 Long term (current) use of anticoagulants | CPT/HCPCS: 99212 ==

== ENCOUNTER 2022-03-30 10:03 | Outpatient (REF) | payer MEDICARE, SELFPAY ==
[2022-03-30 10:31] LABS: MANUAL DIFF FLAG NO
[2022-03-30 10:46] LABS: Basophils Percent Auto 0.3 % (0-2); Eosinophils Absolute Auto 0.1 X10*3/uL (0.0-0.4); Eosinophils Percent Auto 1.7 % (0-4); Hematocrit 41.3 % (42.0-52.0); Hemoglobin 13.7 g/dl (14.0-18.0); Imm Gran Abs Auto 0.03 X10*3/uL (0.00-0.03); Imm Gran Pct Auto 0.4 % (0.0-0.4); Lymphocytes Absolute Auto 0.8 X10*3/uL (1.2-4.9); Lymphocytes Percent Auto 10.7 % (20-40); Mean Corpuscular HGB Conc 33.2 g/dl (31.0-36.0); Mean Corpuscular Hemoglobin 31.9 pg (27.0-33.0); Mean Corpuscular Volume 96.3 fL (80.0-98.0); Mean Platelet Volume 9.4 fL (9.4-12.4); Monocytes Absolute Auto 0.8 X10*3/uL (0.1-1.2); Monocytes Percent Auto 11.4 % (2-11); Neutrophils Absolute Auto 5.3 x10*3/uL (2.0-8.3); Neutrophils Percent Auto 75.5 % (45-73); Platelet Count 210 X10*3/uL (160-400); Red Blood Count 4.29 X10*6/uL (4.60-5.80); Red Cell Distribution Width 13.2 % (11.0-16.0)
[2022-03-30 11:37] LABS: Anion Gap 13 (12-20)
[2022-03-30 11:42] LABS: Alanine Aminotransferase 24 U/L (0-40); Albumin Level 4.2 g/dL (3.5-5.0); Alkaline Phosphatase 65 U/L (39-117); Aspartate Amino Transferase 37 U/L (5-37); Bilirubin Total 0.8 mg/dL (0.0-1.0); Blood Urea Nitrogen 26 mg/dL (9-16); Calcium 9.5 mg/dL (8.4-10.2); Carbon Dioxide 25 mmol/L (22-29); Chloride 106 mmol/L (96-108); Cholesterol 103 mg/dL; Estimated Glomerular Filt Rate 50; Glucose Fasting 109 mg/dL (60-99); HDL Cholesterol 34 mg/dL; LDL Cholesterol Calculated 53 mg/dl; Potassium 4.4 mmol/L (3.3-5.1); Sodium 140 mmol/L (135-145); Total Protein 7.7 g/dL (6.5-8.0); Triglycerides 82 mg/dL
[2022-03-30 11:51] LABS: Prostate Specific Antigen 0.93 ng/mL (<0.05-4.0); Vitamin D 25-OH Total 42.3 ng/mL (>30)
== END 2022-03-30 10:04 | disposition home or self-care (01) ==
LOC: HO.LAB 10:03
PROVIDERS: PCP Internal Medicine Medical Oncology; Visit Provider Internal Medicine Medical Oncology
DX: Z12.5 Encounter for screening for malignant neoplasm of prostate (principal); E11.59 Type 2 diabetes mellitus with other circulatory complications; E66.3 Overweight; N40.0 Benign prostatic hyperplasia without lower urinary tract symptoms
CPT/HCPCS: 36415; 80053; 80061; 82306; 84153; 85025

== ENCOUNTER 2022-06-29 09:51 | Outpatient (REF) | payer MEDICARE, SELFPAY ==
[2022-06-29 10:05] LABS: MANUAL DIFF FLAG NO
[2022-06-29 10:54] LABS: Basophils Percent Auto 0.5 % (0-2); Eosinophils Absolute Auto 0.1 X10*3/uL (0.0-0.4); Eosinophils Percent Auto 1.3 % (0-4); Hematocrit 40.6 % (42.0-52.0); Hemoglobin 13.4 g/dl (14.0-18.0); Imm Gran Abs Auto 0.04 X10*3/uL (0.00-0.03); Imm Gran Pct Auto 0.5 % (0.0-0.4); Lymphocytes Absolute Auto 0.7 X10*3/uL (1.2-4.9); Mean Corpuscular Hemoglobin 31.3 pg (27.0-33.0); Mean Corpuscular Volume 94.9 fL (80.0-98.0); Mean Platelet Volume 9.8 fL (9.4-12.4); Monocytes Absolute Auto 1.1 X10*3/uL (0.1-1.2); Neutrophils Percent Auto 74.7 % (45-73); Platelet Count 254 X10*3/uL (160-400); Red Blood Count 4.28 X10*6/uL (4.60-5.80); Red Cell Distribution Width 14.7 % (11.0-16.0)
[2022-06-29 11:14] LABS: Alanine Aminotransferase 13 U/L (0-40); Albumin Level 4.1 g/dL (3.5-5.0); Alkaline Phosphatase 62 U/L (39-117); Anion Gap 14 (12-20); Aspartate Amino Transferase 21 U/L (5-37); Bilirubin Total 1.3 mg/dL (0.0-1.0); Blood Urea Nitrogen 21 mg/dL (9-16); Calcium 9.3 mg/dL (8.4-10.2); Carbon Dioxide 24 mmol/L (22-29); Chloride 105 mmol/L (96-108); Cholesterol 102 mg/dL; Estimated Glomerular Filt Rate 48; Glucose Random 117 mg/dL (60-115); HDL Cholesterol 38 mg/dL; LDL Cholesterol Calculated 49 mg/dl; Potassium 4.8 mmol/L (3.3-5.1); Sodium 138 mmol/L (135-145); Total Protein 7.4 g/dL (6.5-8.0); Triglycerides 76 mg/dL
== END 2022-06-29 09:52 | disposition home or self-care (01) ==
LOC: HO.LAB 09:51
PROVIDERS: Visit Provider Internal Medicine Medical Oncology
DX: E66.3 Overweight (principal); I35.0 Nonrheumatic aortic (valve) stenosis; E78.5 Hyperlipidemia, unspecified
CPT/HCPCS: 36415; 80053; 80061; 85025

== ENCOUNTER 2022-10-22 14:12 | Outpatient (REF) | payer MEDICARE, SELFPAY ==
--- NOTE | ~2022-10-22 | XR_ITS ---
EXAMINATION: XR CHEST CLINICAL INFORMATION: Cough COMPARISON: Multiple prior chest radiographs most recently 03/24/2017 TECHNIQUE: 2 views of the chest were obtained. FINDINGS: Median sternotomy wires and aortic valve replacement identified. A small posterolateral left pleural effusion is identified (also present on 03/24/2017). Associated subsegmental atelectasis in the left lower lobe. Mild increased interstitial markings is present in the lungs suggesting mild interstitial pulmonary edema. Mild thoracic kyphosis is seen with ossification anterior longitudinal ligament of the thoracic spine. XR/XR chest 2V IMPRESSION: Small left pleural effusion, also present on prior study. Slight increased interstitial markings in the lungs is suggestive of mild interstitial pulmonary edema.
[2022-10-22 15:04] LABS: Basophils Absolute Auto 0.1 X10*3/uL (0.0-0.2); Basophils Percent Auto 0.7 % (0-2); Eosinophils Absolute Auto 0.1 X10*3/uL (0.0-0.4); Hematocrit 29.5 % (42.0-52.0); Hemoglobin 9.2 g/dl (14.0-18.0); Imm Gran Abs Auto 0.04 X10*3/uL (0.00-0.03); Imm Gran Pct Auto 0.4 % (0.0-0.4); MANUAL DIFF FLAG SCAN; Mean Corpuscular HGB Conc 31.2 g/dl (31.0-36.0); Mean Corpuscular Hemoglobin 30.4 pg (27.0-33.0); Mean Corpuscular Volume 97.4 fL (80.0-98.0); Mean Platelet Volume 9.5 fL (9.4-12.4); Monocytes Absolute Auto 2.1 X10*3/uL (0.1-1.2); Monocytes Percent Auto 22.5 % (2-11); Neutrophils Absolute Auto 6.1 x10*3/uL (2.0-8.3); Neutrophils Percent Auto 64.4 % (45-73); Platelet Count 288 X10*3/uL (160-400); Red Blood Count 3.03 X10*6/uL (4.60-5.80); SCAN SMEAR FLAG 1; White Blood Count 9.4 X10*3/uL (4.8-10.8)
[2022-10-22 15:18] LABS: Estimated Average Glucose 111 mg/dL; Hemoglobin A1c % 5.5 %
[2022-10-22 15:23] LABS: SLIDE REVIEW VERIFIED
[2022-10-22 15:26] LABS: Alanine Aminotransferase 27 U/L (0-40); Albumin Level 3.6 g/dL (3.5-5.0); Alkaline Phosphatase 67 U/L (39-117); Anion Gap 16 (12-20); Aspartate Amino Transferase 48 U/L (5-37); Bilirubin Total 0.8 mg/dL (0.0-1.0); Blood Urea Nitrogen 32 mg/dL (9-16); Carbon Dioxide 18 mmol/L (22-29); Chloride 107 mmol/L (96-108); Estimated Glomerular Filt Rate 49; Glucose Random 124 mg/dL (60-115); Potassium 4.3 mmol/L (3.3-5.1); Sodium 137 mmol/L (135-145); Total Protein 7.3 g/dL (6.5-8.0)
[2022-10-22 15:40] LABS: B Type Natriuretic Peptide 716 pg/mL (<100)
== END 2022-10-22 14:13 | disposition home or self-care (01) ==
LOC: HO.LAB 14:12
PROVIDERS: Visit Provider Internal Medicine Medical Oncology
DX: E11.59 Type 2 diabetes mellitus with other circulatory complications (principal); I50.9 Heart failure, unspecified; E66.3 Overweight; R05.9 Cough, unspecified
CPT/HCPCS: 36415; 71046; 80053; 83036; 83880; 85025

== ENCOUNTER 2022-11-01 11:32 | Inpatient (IN) | payer MEDICARE, SELFPAY ==
[2022-11-01] VITALS (9 sets, daily range): BP systolic 121–148; BP diastolic 51–69; PULSE 62–89; RESP 17–20; TEMP 36.2–37.1; O2SAT 93–100; BMI 25.1; BMI 25.6
--- NOTE | ~2022-11-01 | XR_ITS ---
EXAMINATION: XR CHEST CLINICAL INFORMATION: Shortness of breath. COMPARISON: 10/22/2022 chest radiographs. TECHNIQUE: 2 views of the chest were obtained. FINDINGS: There is a persistent small left pleural effusion with superjacent hazy opacities. Mild biapical pleural thickening, left greater than right. The right lung is clear. The heart and mediastinal structures are unremarkable. XR/XR chest 2V IMPRESSION: Small left pleural effusion with superjacent hazy opacities likely representing layering with atelectasis. An associated infiltrate cannot be excluded.
--- NOTE | 2022-11-01 11:35 | ED.GENADULT ---
HPI - General Adult General Chief complaint: Dyspnea Stated complaint: Abnormal EKG Time Seen by Provider: 11/01/22 11:40 Source: patient Mode of arrival: ambulatory Limitations: no limitations History of Present Illness HPI narrative: this is an 82 years old male presented to the emergency department with chief complaint of shortness of breath on exertion worse for the last 2 weeks. He has history of atrial fibrillation, diabetes, aortic valve replacement. He denies any chest pain, he is complaining of orthopnea and dyspnea on exertion increasing legs edema Onset (ago): week(s) (2) Radiation: non-radiation Severity: moderate Pain Consistency: constant Relieving factors: rest Exacerbating factors: movement Associated symptoms: denies other symptoms Related Data Home Medications Medication Instructions Recorded Confirmed aspirin 81 mg tablet,delayed 81 mg PO DAILY 12/14/21 03/01/22 release (Adult Aspirin Regimen) furosemide 80 mg tablet 80 mg PO DAILY 12/14/21 03/01/22 metoprolol tartrate 25 mg tablet mg PO 12/14/21 03/01/22 rivaroxaban 15 mg tablet (Xarelto) 15 mg PO DAILY 12/14/21 03/01/22 Allergies Allergy/AdvReac Type Severity Reaction Status Date / Time Tucujdr-CEN-JzF Reductase AdvReac Mild LEG Verified 03/01/22 10:31 Inhibitor PAIN/NUMBNESS/RESTLESSLESS [[id number] REDUCTASE INHIBITOR] Review of Systems Constitutional: Constitutional: Reports no additional constitutional complaints Cardiovascular: Cardiovascular: Reports no additional cardiovascular complaints and Reports dyspnea Respiratory: Respiratory: Reports dyspnea PMFSH Past Medical History Medical History Atrial fibrillation Coronary artery disease Hemarthrosis, right knee Osteoarthritis of right knee Surgical History H/O cardiac catheterization H/O coronary artery bypass surgery Heart valve replaced Family History Family History Father No problems noted. Mother No problems noted. Social History Social History Alcohol intake: never Smoked in Last 30 Days: No Use of substances other than those prescribed or required for medical reasons: No Advance Directives: No Advance Directives Information Provided: No Physical Exam ED Vital Signs: Vital Signs - 24 hr 11/01/22 11:34 11/01/22 11:57 11/01/22 12:51 Temperature 97.2 F 97.9 F 97.7 F Pulse Rate 80 64 62 Pulse Rate [Left Apical] Respiratory Rate 20 18 18 Blood Pressure 148/62 H 128/57 L 131/51 L Pulse Oximetry 94 97 99 Oxygen Delivery Method Room Air Room Air Room Air 11/01/22 14:00 11/01/22 14:15 Temperature Pulse Rate 69 Pulse Rate [Left Apical] 65 Respiratory Rate 17 18 Blood Pressure 130/52 L Pulse Oximetry 100 Oxygen Delivery Method Room Air BMI result Body Mass Index 25.1 Const General: alert and in distress moderate Nutritional Appearance: average body habitus Orientation/consciousness: patient oriented x3 Limitations: no limitations HENMT Head: Yes normal to inspection General nose exam: Normal external nose present Throat: Yes posterior oropharynx normal Neck Neck: Yes normal visual inspection and Yes full ROM Resp Effort & Inspection: respiratory distress (mild) Auscultation: rales Cardio Jugular venous distension: no JVD Rate: regular rate Rhythm: regular rhythm GI Inspection: Yes normal to inspection Palpation (GI): Soft to palpation, not firm and nontender Skin General skin exam: no rashes or lesions noted Neuro General: patient oriented x3 Extrem Other: 3 plus edema Course Course Course Narrative: RME performed by Jossie Perez PA-C. Patient is an 82 year old assigned male at presenting to the emergency department with increased shortness of breath and concern for a congestive heart failure episode. Labs and imaging ordered. Patient placed back in the waiting room pending room availability and results. Reevaluation(s) Reevaluation #1: seen by Certified Hearing Instrument Dispenser Dr Li as well Time: 14:38 Medications Administered Discontinued Medications Generic Name Dose Route Start Last Admin Trade Name Freq PRN Reason Stop Dose Admin Furosemide 40 mg 11/01/22 12:58 11/01/22 13:01 Furosemide 40 Mg/4 Ml Vial IVPUSH 11/01/22 12:59 40 mg ONCE ONE Administration Protocol Medical Decision Making Medical Decision Making [facility] Narrative: patient presented with dyspnea on exertion peripheral edema will get a chest x-ray labs EKG and reassessed Differential Diagnosis Differential Diagnoses: The differential diagnosis associated with the presentation includes congestive failure/ renal failure /PE Admission/Observation Consideration of admission/observation: Escalation of care including admission/observation considered Consult Healthcare Provider Management of the patient was discussed with: Operations Manager/Coordinator leroy Lab Data MDM Lab Attestation statement: I reviewed the patient's lab results. 11/01/22 11:52 11/01/22 11:51 Labs: Lab Results 11/01/22 11/01/22 11/01/22 Range/Units 11:50 11:51 11:51 WBC (4.8-10.8) X10*3/uL RBC (4.60-5.80) X10*6/uL Hgb (14.0-18.0) g/dl Hct (42.0-52.0) % MCV (80.0-98.0) fL MCH (27.0-33.0) pg MCHC (31.0-36.0) g/dl RDW (11.0-16.0) % Plt Count (160-400) X10*3/uL MPV (9.4-12.4) fL Immature Gran % (Auto) (0.0-0.4) % Neut % (Auto) (45-73) % Lymph % (Auto) (20-40) % [place] % (Auto) (2-11) % Eos % (Auto) (0-4) % Baso % (Auto) (0-2) % Lymph # (Auto) (1.2-4.9) X10*3/uL [place] # (Auto) (0.1-1.2) X10*3/uL Eos # (Auto) (0.0-0.4) X10*3/uL Baso # (Auto) (0.0-0.2) X10*3/uL Abs Immat Gran (auto) (0.00-0.03) X10*3/uL Absolute Neuts (auto) (2.0-8.3) x10*3/uL Absolute Nucleated RBC (0.0-0.012) X10*3/uL Nucleated RBC % (auto) (0.0-0.2) /100WBC Sodium 138 (135-145) mmol/L Potassium 4.5 (3.3-5.1) mmol/L Chloride 111 H (96-108) mmol/L Carbon Dioxide 16 L (22-29) mmol/L Anion Gap 16 (12-20) BUN 34 H (9-16) mg/dL Creatinine 1.66 H (0.5-1.4) mg/dL Estim Creat Clear Calc 38.3 Estimated GFR 40 Random Glucose 129 H (60-115) mg/dL Calcium 8.7 (8.4-10.2) mg/dL Magnesium 2.3 (1.6-2.6) mg/dL Total Bilirubin 0.8 (0.0-1.0) mg/dL AST 29 (5-37) U/L ALT 17 (0-40) U/L Alkaline Phosphatase 59 (39-117) U/L Troponin I High Sens 78.3 H (<3.5-35.0) ng/L B-Natriuretic Peptide (<100) pg/mL Total Protein 7.4 (6.5-8.0) g/dL Albumin 3.7 (3.5-5.0) g/dL Urine Color Urine Appearance Urine pH (5.0-9.0) Ur Specific Reynolds (1.005-1.025) Urine Protein (Neg-Trace) mg/dL Urine Glucose (UA) (Negative) mg/dL Urine Ketones (Negative) mg/dL Urine Blood (Negative) Urine Nitrite (Negative) Ur Leukocyte Esterase (Negative) Urine RBC (0-2) /HPF Urine WBC (0-5) /HPF Ur Squamous Epith Cells (0-2) /HPF Urine Bacteria (None Seen) Hyaline Casts (0-2) /LPF COVID-19 (BETTINA) Negative (Negative) COVID-19 Clin Com See Note 11/01/22 11/01/22 11/01/22 Range/Units 11:52 11:52 12:34 WBC 8.5 (4.8-10.8) X10*3/uL RBC 3.21 L (4.60-5.80) X10*6/uL Hgb 9.1 L (14.0-18.0) g/dl Hct 29.5 L (42.0-52.0) % MCV 91.9 (80.0-98.0) fL MCH 28.3 (27.0-33.0) pg MCHC 30.8 L (31.0-36.0) g/dl RDW 16.1 H (11.0-16.0) % Plt Count 307 (160-400) X10*3/uL MPV 9.1 L (9.4-12.4) fL Immature Gran % (Auto) 0.6 H (0.0-0.4) % Neut % (Auto) 76.4 H (45-73) % Lymph % (Auto) 6.3 L (20-40) % [place] % (Auto) 15.5 H (2-11) % Eos % (Auto) 0.6 (0-4) % Baso % (Auto) 0.6 (0-2) % Lymph # (Auto) 0.5 L (1.2-4.9) X10*3/uL [place] # (Auto) 1.3 H (0.1-1.2) X10*3/uL Eos # (Auto) 0.1 (0.0-0.4) X10*3/uL Baso # (Auto) 0.1 (0.0-0.2) X10*3/uL Abs Immat Gran (auto) 0.05 H (0.00-0.03) X10*3/uL Absolute Neuts (auto) 6.5 (2.0-8.3) x10*3/uL Absolute Nucleated RBC 0.000 (0.0-0.012) X10*3/uL Nucleated RBC % (auto) 0.0 (0.0-0.2) /100WBC Sodium (135-145) mmol/L Potassium (3.3-5.1) mmol/L Chloride (96-108) mmol/L Carbon Dioxide (22-29) mmol/L Anion Gap (12-20) BUN (9-16) mg/dL Creatinine (0.5-1.4) mg/dL Estim Creat Clear Calc Estimated GFR Random Glucose (60-115) mg/dL Calcium (8.4-10.2) mg/dL Magnesium (1.6-2.6) mg/dL Total Bilirubin (0.0-1.0) mg/dL AST (5-37) U/L ALT (0-40) U/L Alkaline Phosphatase (39-117) U/L Troponin I High Sens (<3.5-35.0) ng/L B-Natriuretic Peptide 1019 H (<100) pg/mL Total Protein (6.5-8.0) g/dL Albumin (3.5-5.0) g/dL Urine Color Yellow Urine Appearance Clear Urine pH 5.0 (5.0-9.0) Ur Specific Reynolds 1.010 (1.005-1.025) Urine Protein Negative (Neg-Trace) mg/dL Urine Glucose (UA) Negative (Negative) mg/dL Urine Ketones Negative (Negative) mg/dL Urine Blood Negative (Negative) Urine Nitrite Negative (Negative) Ur Leukocyte Esterase Trace H (Negative) Urine RBC 0-2 (0-2) /HPF Urine WBC 6-10 H (0-5) /HPF Ur Squamous Epith Cells 0-2 (0-2) /HPF Urine Bacteria None Seen (None Seen) Hyaline Casts 3-5 (0-2) /LPF COVID-19 (BETTINA) (Negative) COVID-19 Clin Com Independent Interpretation I performed an independent interpretation of an: EKG ( normal sinus rhythm rate [address]-T changes) and Plain X-Ray Interpretation: no ischemia sinus rhythm 64, chest x-ray reviewed by me mild CHF right prior effusion Radiology Impression Discussion of test interpretation with radiology: I have reviewed the radiologist's reading. Radiologist Impression: CLINICAL INFORMATION: Shortness of breath. COMPARISON: 10/22/2022 chest radiographs. TECHNIQUE: 2 views of the chest were obtained. FINDINGS: There is a persistent small left pleural effusion with superjacent hazy opacities. Mild biapical pleural thickening, left greater than right. The right lung is clear. The heart and mediastinal structures are unremarkable. XR/XR chest 2V IMPRESSION: Small left pleural effusion with superjacent hazy opacities likely representing layering with atelectasis. An associated infiltrate cannot be excluded. Dictated By: Adam Sanchez MD Signed By: <Electronically sign Independent Historian Clinical information obtained from an independent historian. History obtained from or confirmed by: Spouse and Other (DR Josue PCP) External Record Review External record reviewed: Office record and Outpatient record Chronic Conditions Patient?s care impacted by: Other (CAD) Discharge Plan Discharge Clinical Impression: Acute dyspnea Patient Disposition: Admitted As Inpatient
--- NOTE | 2022-11-01 11:51 | ECG_ITS ---
Test Reason : SOB Blood Pressure : / mmHG Vent. Rate : 064 BPM Atrial Rate : 064 BPM P-R Int : 198 ms QRS Dur : 100 ms QT Int : 454 ms P-R-T Axes : 034 -63 030 degrees QTc Int : 468 ms Normal sinus rhythm Left axis deviation Incomplete right bundle branch block Nonspecific ST abnormality Abnormal ECG When compared with ECG of 04-DEC-2012 18:56, Sinus rhythm has replaced Atrial fibrillation Incomplete right bundle branch block is now Present Referred By: Antoni Perez Electronically Signed By:Jimmy Li
--- NOTE | 2022-11-01 11:56 | PC.NURSE ---
20gIV placed in the right AC w/o complications - labs drawn and sent by tech. tech's in room performing EKG.
[2022-11-01 11:58] LABS: MANUAL DIFF FLAG NO
[2022-11-01 12:00] LABS: Basophils Absolute Auto 0.1 X10*3/uL (0.0-0.2); Basophils Percent Auto 0.6 % (0-2); Eosinophils Absolute Auto 0.1 X10*3/uL (0.0-0.4); Eosinophils Percent Auto 0.6 % (0-4); Hematocrit 29.5 % (42.0-52.0); Hemoglobin 9.1 g/dl (14.0-18.0); Imm Gran Abs Auto 0.05 X10*3/uL (0.00-0.03); Imm Gran Pct Auto 0.6 % (0.0-0.4); Lymphocytes Absolute Auto 0.5 X10*3/uL (1.2-4.9); Lymphocytes Percent Auto 6.3 % (20-40); Mean Corpuscular HGB Conc 30.8 g/dl (31.0-36.0); Mean Corpuscular Hemoglobin 28.3 pg (27.0-33.0); Mean Corpuscular Volume 91.9 fL (80.0-98.0); Mean Platelet Volume 9.1 fL (9.4-12.4); Monocytes Absolute Auto 1.3 X10*3/uL (0.1-1.2); Monocytes Percent Auto 15.5 % (2-11); Neutrophils Absolute Auto 6.5 x10*3/uL (2.0-8.3); Neutrophils Percent Auto 76.4 % (45-73); Platelet Count 307 X10*3/uL (160-400); Red Blood Count 3.21 X10*6/uL (4.60-5.80); Red Cell Distribution Width 16.1 % (11.0-16.0); White Blood Count 8.5 X10*3/uL (4.8-10.8)
[2022-11-01 12:13] LABS: COVID-19 Test Negative (Negative); IDNOW Serial# 08D9AD1C
[2022-11-01 12:18] LABS: Anion Gap 16 (12-20)
[2022-11-01 12:19] LABS: Alanine Aminotransferase 17 U/L (0-40); Albumin Level 3.7 g/dL (3.5-5.0); Alkaline Phosphatase 59 U/L (39-117); Aspartate Amino Transferase 29 U/L (5-37); Bilirubin Total 0.8 mg/dL (0.0-1.0); Blood Urea Nitrogen 34 mg/dL (9-16); Calcium 8.7 mg/dL (8.4-10.2); Carbon Dioxide 16 mmol/L (22-29); Chloride 111 mmol/L (96-108); Creatinine Clr Calc Pharmacy 38.3; Estimated Glomerular Filt Rate 40; Glucose Random 129 mg/dL (60-115); Magnesium 2.3 mg/dL (1.6-2.6); Potassium 4.5 mmol/L (3.3-5.1); Sodium 138 mmol/L (135-145); Total Protein 7.4 g/dL (6.5-8.0)
[2022-11-01 12:21] LABS: B Type Natriuretic Peptide 1019 pg/mL (<100)
[2022-11-01 12:27] LABS: Troponin-I High Sensitivity 78.3 ng/L (<3.5-35.0)
[2022-11-01 12:41] LABS: Appearance Urine Clear; Color Urine Yellow; Glucose Urine UA Negative (Negative); Leukocyte Esterase Urine Trace (Negative); Nitrite Urine Negative (Negative); UMIC TRIGGER UACC YES; Urine Blood Negative (Negative); Urine Ketones Negative (Negative); Urine Protein Negative (Neg-Trace)
[2022-11-01 12:43] LABS: Bacteria Urine None Seen (None Seen); RBC Urine 0-2 /HPF (0-2); Squamous Epithelial Cell Urine 0-2 /HPF (0-2); UACC Culture Trigger YES
--- NOTE | 2022-11-01 12:55 | PC.NURSE ---
pt a&ox3, vss, nsr on the safety relief valve technician. pt comes in after visiting PCP (dr. kuhn). pt states that PCP discovered new heart murmur and sent him down to the ED to get checked out. pt's lung sounds clear throughout. 2+ LE edema present bilaterally. pt verbalizes that some days are more swollen than others and that the swelling has been present for 3-4 months. pt denies SOB at the moment. pt speaking in full, clear sentences displaying no apparent distress. call tran placed within reach.
[2022-11-01] MEDS: Furosemide 40 MG/4 ML VIAL IVPUSH ×2 (13:01→20:26)
--- NOTE | 2022-11-01 13:05 | PC.NURSE ---
medication administered per provider order.
--- NOTE | 2022-11-01 13:49 | PM.CNCAR ---
History of Present Illness History of Present Illness Date of Service: 11/01/22 Requesting physician: Antoni Perez Chief complaint: CHF Narrative: Primary residential program manager: James Head. [age] gentleman was background history of coronary bypass surgery x3 by his report as well as bioprosthetic aortic valve replacement 4-5 years ago in [place], [place]. He is presenting with shortness of breath and orthopnea along lower extremity edema or going for few weeks. He said he had some infection and was given antibiotics but did not improve after that and progressively has become more short of breath. He has significant peripheral edema currently. He also has paroxysmal atrial fibrillation and has been on rivaroxaban. No syncope. No chest discomfort. Labs, EKG and imaging reviewed. [facility] Past Medical History Medical History Atrial fibrillation Coronary artery disease Hemarthrosis, right knee Osteoarthritis of right knee Family History Family History Father No problems noted. Mother No problems noted. Surgical History Surgical History H/O cardiac catheterization H/O coronary artery bypass surgery Heart valve replaced Social History Social History Alcohol intake: never Smoked in Last 30 Days: No Use of substances other than those prescribed or required for medical reasons: No Advance Directives: No Advance Directives Information Provided: No Meds Allergies Allergy/AdvReac Type Severity Reaction Status Date / Time Ckjokfd-EYC-HmD Reductase AdvReac Mild LEG Verified 03/01/22 10:31 Inhibitor PAIN/NUMBNESS/RESTLESSLESS [[id number] REDUCTASE INHIBITOR] Active Medications: Current Medications Furosemide (Furosemide 40 Mg/4 Ml Vial) 40 mg IVPUSH BID HEDY; Protocol Pharmacy Consult (Consult Rx Perform Med Rec) 1 each MISCELLANE ONCE PRN PRN Reason: Consult order Home Medications Medication Instructions Recorded Confirmed Last Taken Type aspirin 81 mg tablet,delayed 81 mg PO DAILY 12/14/21 03/01/22 Unknown History release (Adult Aspirin Regimen) furosemide 80 mg tablet 80 mg PO DAILY 12/14/21 03/01/22 Unknown History metoprolol tartrate 25 mg tablet mg PO 12/14/21 03/01/22 Unknown History rivaroxaban 15 mg tablet (Xarelto) 15 mg PO DAILY 12/14/21 03/01/22 Unknown History Physical Exam Vital Signs: Vital Signs: Last Vital Signs Temp 97.7 F 11/01/22 12:51 Pulse 62 11/01/22 12:51 Resp 18 11/01/22 12:51 BP 131/51 L 11/01/22 12:51 Pulse Ox 99 11/01/22 12:51 O2 Del Method Room Air 11/01/22 12:51 BMI result Body Mass Index 25.1 GENERAL APPEARANCE: in no acute distress, pleasant. NECK: no carotid bruit, positive jugular venous distention. Prominent V-wave. SKIN: no suspicious lesions, warm and dry. HEART: Regular rate rhythm. Systolic murmur at the apex. Holosystolic murmur left sternal border. LUNGS: clear to auscultation bilaterally. ABDOMEN: soft, nontender. EXTREMITIES: 2+ to 3+ edema. PERIPHERAL PULSES: equal. NEUROLOGIC: No gross deficits, AAO X 3 Objective Labs and Meds 11/01/22 11:52 11/01/22 11:51 Lab results: Laboratory Results - last 24 hr 11/01/22 11/01/22 11/01/22 11:50 11:51 11:51 WBC RBC Hgb Hct MCV MCH MCHC RDW Plt Count MPV Immature Gran % (Auto) Neut % (Auto) Lymph % (Auto) [place] % (Auto) Eos % (Auto) Baso % (Auto) Lymph # (Auto) [place] # (Auto) Eos # (Auto) Baso # (Auto) Abs Immat Gran (auto) Absolute Neuts (auto) Absolute Nucleated RBC Nucleated RBC % (auto) Sodium 138 Potassium 4.5 Chloride 111 H Carbon Dioxide 16 L Anion Gap 16 BUN 34 H Creatinine 1.66 H Estim Creat Clear Calc 38.3 Estimated GFR 40 Random Glucose 129 H Calcium 8.7 Magnesium 2.3 Total Bilirubin 0.8 AST 29 ALT 17 Alkaline Phosphatase 59 Troponin I High Sens 78.3 H B-Natriuretic Peptide Total Protein 7.4 Albumin 3.7 Urine Color Urine Appearance Urine pH Ur Specific [place] Urine Protein Urine Glucose (UA) Urine Ketones Urine Blood Urine Nitrite Ur Leukocyte Esterase Urine RBC Urine WBC Ur Squamous Epith Cells Urine Bacteria Hyaline Casts COVID-19 (BETTINA) Negative COVID-19 Clin Com See Note 11/01/22 11/01/22 11/01/22 11:52 11:52 12:34 WBC 8.5 RBC 3.21 L Hgb 9.1 L Hct 29.5 L MCV 91.9 MCH 28.3 MCHC 30.8 L RDW 16.1 H Plt Count 307 MPV 9.1 L Immature Gran % (Auto) 0.6 H Neut % (Auto) 76.4 H Lymph % (Auto) 6.3 L [place] % (Auto) 15.5 H Eos % (Auto) 0.6 Baso % (Auto) 0.6 Lymph # (Auto) 0.5 L [place] # (Auto) 1.3 H Eos # (Auto) 0.1 Baso # (Auto) 0.1 Abs Immat Gran (auto) 0.05 H Absolute Neuts (auto) 6.5 Absolute Nucleated RBC 0.000 Nucleated RBC % (auto) 0.0 Sodium Potassium Chloride Carbon Dioxide Anion Gap BUN Creatinine Estim Creat Clear Calc Estimated GFR Random Glucose Calcium Magnesium Total Bilirubin AST ALT Alkaline Phosphatase Troponin I High Sens B-Natriuretic Peptide 1019 H Total Protein Albumin Urine Color Yellow Urine Appearance Clear Urine pH 5.0 Ur Specific [place] 1.010 Urine Protein Negative Urine Glucose (UA) Negative Urine Ketones Negative Urine Blood Negative Urine Nitrite Negative Ur Leukocyte Esterase Trace H Urine RBC 0-2 Urine WBC 6-10 H Ur Squamous Epith Cells 0-2 Urine Bacteria None Seen Hyaline Casts 3-5 COVID-19 (BETTINA) COVID-19 Clin Com Imaging Radiologist's impression: Impressions Chest X-Ray 11/01/22 12:15 IMPRESSION: Small left pleural effusion with superjacent hazy opacities likely representing layering with atelectasis. An associated infiltrate cannot be excluded. Assessment and Plan (1) Acute congestive heart failure: Status: Acute (2) PAF (paroxysmal atrial fibrillation): Status: Acute Plan 82 year gentleman who has known history of coronary artery disease and aortic valve disease for which he had aortic valve replacement and CABG 4-5 years ago in [place] [facility]. He is presenting lower extremity edema, orthopnea and dyspnea. Clinically appears to be in heart failure. He has holosystolic murmur at the apex as well as left sternal border. He has prominent V wave on examination. Lasix 40 mg IV b.i.d.. He also has what appears to be sinus pauses which are less than 2nd on telemetry. I think which for the beta-eleanor for now. We will get records from [facility]. We will get echocardiography to assess the tricuspid and mitral valve in particular. Thank you for allowing me to participate in the care of your patient. Please feel free to contact me if you have any questions. Time Spent With Patient Time: Total time managing care of this patient today ____ minutes. Procedures Date of Service Date of Service: 11/01/22
--- NOTE | 2022-11-01 14:55 | PHA.MEDREC ---
Pharmacy Consult ? Medication Reconciliation Pharmacy has completed the medication reconciliation. Spoke to patients brea
--- NOTE | 2022-11-01 15:07 | P.HPHOSP_ITS ---
History of Present Illness Date of Service: 11/01/22 Attending physician on admission: Dyllan Bledsoe Chief Complaint: larose 82 year old male with history of paroxysmal atrial fibrillation on xarelto, htn, hld, HFpEF, CAD s/p CABG, carotid stenosis, s/p bovine valve replacement, and OA presented to the ED earlier today from PCP office for evaluation of dyspnea on exertion and bilateral lower extremity edema that has been worsening over the last few weeks. He denies any lightheadedness, palpitations, dyspnea at rest, PND, orthopnea. Does endorse a nocturnal cough. He follows with Dr. Head at [facility] in [facility] cardiovascular associates and did have echocardiogram 01/19/2022 which showed normal LV systolic function with grade 3 severe diastolic function with restrictive LV filling and elevated left atrial pressure with mild asymmetric septal hypertrophy with septal thickness 13-15 mm and normal functioning aortic bioprosthetic tissue valve, mild mitral regurgitat ion, and moderate mitral annular calcifications. He reports compliance with home Lasix. On arrival, vital stable. There is no leukocytosis. He has a stable normocytic anemia with H/H 9.1/29.5%. Creatinine slightly above baseline at 1.66 (baseline 1.39), BUN 34, electrolyte levels normal except for CO2 of 16. Initial troponin 78.3, repeat pending. BNP 1019. Urinalysis unremarkable. Negative for COVID- 19. CXR showing small left pleural effusion with super adjacent hazy opacities likely representing layering with atelectasis and associated infiltrate cannot be excluded. EKG shows normal sinus rhythm, rate 64 with incomplete right bundle-branch block and nonspecific ST abnormality. While in the ED, he was evaluated by cardiology is recommending admission with Lasix 40 mg IV b.i.d. In the ED, given lasix 40mg IV. Review of Systems Review of Systems: General: No fevers, malaise, unintentional weight loss HEENT: No blurred vision, diplopia. No sore throat, nasal congestion, rhinorrhea , sinus pain, ear pain Cardiovascular: No chest pain, palpitations. + leg edema Respiratory: +larose, +cough. No shortness of breath at rest, PND, orthopnea, wheezing GI: No abdominal pain, nausea, vomiting, diarrhea, constipation, melena, hematochezia : No dysuria, hematuria, increased urinary frequency, decreased urinary output MSK: No myalgia, back pain Neuro: No headaches, weakness, paresthesias Skin: No rashes or lesions [facility] Medical History Atrial fibrillation Coronary artery disease Hemarthrosis, right knee Osteoarthritis of right knee Family History Father No problems noted. Mother No problems noted. Surgical History H/O cardiac catheterization H/O coronary artery bypass surgery Heart valve replaced Social History Alcohol intake: never Patient Tobacco Use Status: Former Tobacco user Smoked in Last 30 Days: No Use of substances other than those prescribed or required for medical reasons: No Advance Directives: No Advance Directives Information Provided: No Nutrition Risks: No Nutritional Risk Meds Allergies Allergy/AdvReac Type Severity Reaction Status Date / Time [id number]-EeS Reductase AdvReac Mild LEG Verified 03/01/22 10:31 Inhibitor PAIN/NUMBNESS/RESTLESSLESS [[id number] REDUCTASE INHIBITOR] Active Medications: Current Medications Acetaminophen (Acetaminophen 325 Mg Tablet) 650 mg PO Q6H PRN PRN Reason: Pain, Mild (Pain Scale 1-3) Docusate Sodium (Docusate Sodium 100 Mg Capsule) 100 mg PO DAILY PRN PRN Reason: Constipation Furosemide (Furosemide 40 Mg/4 Ml Vial) 40 mg IVPUSH BID [facility]; Protocol Ondansetron HCl (Ondansetron Hcl 4 Mg/2 Ml Vial) 4 mg IVPUSH Q8H PRN PRN Reason: Nausea and Vomiting Pharmacy Consult (Consult Rx Perform Med Rec) 1 each MISCELLANE ONCE PRN PRN Reason: Consult order Sodium Chloride (0.9 % Sodium Chloride Flush 3 Ml Syringe) 3 ml IVFLUSH [facility] Home Medications Medication Instructions Recorded Confirmed Last Taken Type aspirin 81 mg tablet,delayed 81 mg PO DAILY 12/14/21 11/01/22 Unknown History release (Adult Aspirin Regimen) furosemide 80 mg tablet 80 mg PO DAILY 12/14/21 11/01/22 Unknown History metoprolol tartrate 25 mg tablet 25 mg PO TID@0800,1200,1600 12/14/21 11/01/22 Unknown History rivaroxaban 15 mg tablet (Xarelto) 15 mg PO DAILY 12/14/21 11/01/22 Unknown History albuterol sulfate 90 mcg/actuation 1 puff inhalation Q4H PRN 11/01/22 11/01/22 Unknown History aerosol inhaler Shortness Of Breath calcium carbonate 500 mg calcium 500 mg PO DAILY 11/01/22 11/01/22 Unknown History (1,250 mg) tablet ciprofloxacin HCl 500 mg tablet 500 mg PO Q12H 11/01/22 11/01/22 Unknown History ezetimibe 10 mg tablet 10 mg PO BEDTIME 11/01/22 11/01/22 Unknown History omega-3 fatty acids 1,000 mg PO DAILY 11/01/22 11/01/22 Unknown History potassium chloride 10 mEq 20 meq PO DAILY 11/01/22 11/01/22 Unknown History tablet,extended release (Klor-Con) rosuvastatin 40 mg tablet 20 mg PO BEDTIME 11/01/22 11/01/22 Unknown History Physical Exam Vital Signs and Narrative: Vital Signs: Last Vital Signs Temp 97.6 F 11/01/22 14:38 Pulse 81 11/01/22 14:38 Resp 18 11/01/22 14:38 BP 130/62 11/01/22 14:38 Pulse Ox 94 11/01/22 14:38 O2 Del Method Room Air 11/01/22 14:38 BMI result Body Mass Index 25.1 Constitutional - Awake and Alert, No apparent distress Eyes - PERRLA, EOMI Cardiovascular - S1S2, RRR, IV/ systolic murmur left sternal border, 3+pitting edema BLE Respiratory - Normal lung expansion, Normal respiratory effort, No respiratory distress, CTA bilaterally Gastrointestinal - NT / ND; +BS; No rebound or guarding Extremities - no calf tenderness bilaterally, no swelling Skin - Warm/Dry Neurological - Alert & oriented x3 Results Labs 11/01/22 11:52 11/01/22 11:51 Labs: Laboratory Results - last 24 hr 11/01/22 11/01/22 11/01/22 11:50 11:51 11:52 MCV 91.9 MCH 28.3 MCHC 30.8 L RDW 16.1 H Plt Count 307 MPV 9.1 L Immature Gran % (Auto) 0.6 H Neut % (Auto) 76.4 H Lymph % (Auto) 6.3 L [place] % (Auto) 15.5 H Eos % (Auto) 0.6 Baso % (Auto) 0.6 Lymph # (Auto) 0.5 L [place] # (Auto) 1.3 H Eos # (Auto) 0.1 Baso # (Auto) 0.1 Abs Immat Gran (auto) 0.05 H Absolute Neuts (auto) 6.5 Absolute Nucleated RBC 0.000 Nucleated RBC % (auto) 0.0 Anion Gap 16 Estim Creat Clear Calc 38.3 Estimated GFR 40 Random Glucose 129 H Calcium 8.7 Magnesium 2.3 Total Bilirubin 0.8 AST 29 ALT 17 Alkaline Phosphatase 59 B-Natriuretic Peptide Total Protein 7.4 Albumin 3.7 Urine Color Urine Appearance Urine pH Ur Specific [place] Urine Protein Urine Glucose (UA) Urine Ketones Urine Blood Urine Nitrite Ur Leukocyte Esterase Urine RBC Urine WBC Ur Squamous Epith Cells Urine Bacteria Hyaline Casts COVID-19 (BETTINA) Negative COVID-19 Clin Com See Note 11/01/22 11/01/22 11:52 12:34 MCV MCH MCHC RDW Plt Count MPV Immature Gran % (Auto) Neut % (Auto) Lymph % (Auto) [place] % (Auto) Eos % (Auto) Baso % (Auto) Lymph # (Auto) [place] # (Auto) Eos # (Auto) Baso # (Auto) Abs Immat Gran (auto) Absolute Neuts (auto) Absolute Nucleated RBC Nucleated RBC % (auto) Anion Gap Estim Creat Clear Calc Estimated GFR Random Glucose Calcium Magnesium Total Bilirubin AST ALT Alkaline Phosphatase B-Natriuretic Peptide 1019 H Total Protein Albumin Urine Color Yellow Urine Appearance Clear Urine pH 5.0 Ur Specific [place] 1.010 Urine Protein Negative Urine Glucose (UA) Negative Urine Ketones Negative Urine Blood Negative Urine Nitrite Negative Ur Leukocyte Esterase Trace H Urine RBC 0-2 Urine WBC 6-10 H Ur Squamous Epith Cells 0-2 Urine Bacteria None Seen Hyaline Casts 3-5 COVID-19 (BETTINA) COVID-19 Clin Com Imaging Radiologist's Impressions: Impressions Chest X-Ray 11/01/22 12:15 IMPRESSION: Small left pleural effusion with superjacent hazy opacities likely representing layering with atelectasis. An associated infiltrate cannot be excluded. Assessment and Plan (1) CHF (congestive heart failure): Status: Acute Plan 82 year old male with history of paroxysmal atrial fibrillation on xarelto, htn, hld, HFpEF, CAD s/p CABG, carotid stenosis, s/p bovine valve replacement, and OA admitted for acute CHF exacerbation. #Acute CHF exacerbation -Symptomatic with LAROSE, 3+ ble edema. BNP >1000, CXR with small right pleural effusion -reviewed last echo 01/16 showing normal LV systolic function, severe grade III diastolic dysfunction -IV lasix 40mg BID per cardiology -Cardiac diet -Strict I&O -Daily weights -Cardiology consult -Echo -Monitor on telemetry given short pauses noted on tele in ED #Systolic murmur on exam -echo ordered -cadiology consult # elevated troponin -initial troponin 78, repeat pending. Likely secondary to demand due to above -EKG without evidence of acute ischemia, no anginal chest pain #HTN -continue metoprolol. Hold p.o. Lasix # paroxysmal atrial fibrillation -rate controlled -continue Xarelto, metoprolol for rate control # coronary artery disease -no anginal chest pain, EKG without any evidence of acute ischemia -continue aspirin, metoprolol, statin DVT prophylaxis-Xarelto Full code Patient requires inpatient stay at least 2 midnights for management of acute co ngestive heart failure exacerbation requiring IV diuresis and expert consultation Time Spent With Patient Time: Total time managing care of this patient today ____ minutes. Quality Stroke Does the patient have a stroke diagnosis?: No VTE Prior VTE?: No VTE Risk Level:: Medical - moderate - high VTE Device Contraindication: Treatment Not Indicated VTE Drug Contraindication: N/A - Med Ordered
[2022-11-01 15:20] LABS: Troponin-I High Sensitivity 76.4 ng/L (<3.5-35.0)
[2022-11-01] MEDS: Metoprolol Tartrate 25 MG TABLET PO (15:52)
--- NOTE | 2022-11-01 15:53 | PC.NURSE ---
medication administered per provider order.
[2022-11-01] MEDS: 0.9 % Sodium Chloride Flush 3 ML SYRINGE IVFLUSH ×2 (15:54→20:05)
--- NOTE | 2022-11-01 17:45 | PC.NURSE ---
pt transferred to ED bed 1. pt a&ox3, vss, nsr on the ekg monitor tech with occasional PVCs. pt verbalizing 0/10 pain. lung sounds clear throughout. call tran placed within reach.
--- NOTE | 2022-11-01 18:45 | PC.NURSE ---
attempted to give report to [facility] but no response. will try again shortly.
--- NOTE | 2022-11-01 19:13 | MHC.EDTECH ---
This tech assumed care of pt [id number]
--- NOTE | 2022-11-01 19:13 | PC.NURSE ---
report given to RN to [facility].
--- NOTE | 2022-11-01 19:14 | MHC.EDTECH ---
This tech assumed care of pt at 1900, vitals were taken,and patient has a room assigned and is awaiting to go upstairs. Call tran within reach
[2022-11-01] MEDS: Atorvastatin Calcium 80 MG TABLET PO (20:26)
[2022-11-01] MEDS: Ezetimibe 10 MG TABLET PO (20:29)
[2022-11-02] VITALS (7 sets, daily range): BP systolic 105–142; BP diastolic 50–66; PULSE 64–100; RESP 18–20; TEMP 36–37; O2SAT 91–98
[2022-11-02 06:50] LABS: MANUAL DIFF FLAG NO
[2022-11-02 06:57] LABS: Basophils Percent Auto 0.4 % (0-2); Eosinophils Absolute Auto 0.1 X10*3/uL (0.0-0.4); Eosinophils Percent Auto 1.1 % (0-4); Hematocrit 26.9 % (42.0-52.0); Hemoglobin 8.3 g/dl (14.0-18.0); Imm Gran Abs Auto 0.04 X10*3/uL (0.00-0.03); Imm Gran Pct Auto 0.6 % (0.0-0.4); Lymphocytes Absolute Auto 0.5 X10*3/uL (1.2-4.9); Lymphocytes Percent Auto 6.4 % (20-40); Mean Corpuscular HGB Conc 30.9 g/dl (31.0-36.0); Mean Corpuscular Hemoglobin 28.2 pg (27.0-33.0); Mean Corpuscular Volume 91.5 fL (80.0-98.0); Mean Platelet Volume 9.4 fL (9.4-12.4); Monocytes Absolute Auto 1.2 X10*3/uL (0.1-1.2); Monocytes Percent Auto 17.3 % (2-11); Neutrophils Absolute Auto 5.3 x10*3/uL (2.0-8.3); Neutrophils Percent Auto 74.2 % (45-73); Platelet Count 247 X10*3/uL (160-400); Red Blood Count 2.94 X10*6/uL (4.60-5.80); Red Cell Distribution Width 16.1 % (11.0-16.0); White Blood Count 7.2 X10*3/uL (4.8-10.8)
--- NOTE | 2022-11-02 07:00 | CA_ITS ---
Transthoracic Echocardiogram Patient (Last, First, Middle): Pedro Lobato R Gender: Male Date of : 1940 Age: 82 Procedure Date: 11/02/2022 Procedure Type: Transthoracic Echocardiogram Location: [facility] [place] Height: 182.88 cm Weight: 83.92 kg BSA: 2.06 m2 Heart Rate: bpm BP: 130 / 52 mmHg Schedule Announcer: Referring MD: Antoni Perez MD Symptoms: heart failure Study Quality: Fair ECG Rhythm: Sinus Conclusions: - Normal left ventricular size and systolic function. The visually estimated ejection fraction is between 65-70%. - Spectral Doppler is indicative of a restrictive filling pattern. Elevated filling pressures. - Severely increased right ventricular cavity size. There is mild to moderately decreased right ventricular systolic function. - The left atrium is moderately dilated. The right atrium is severely dilated. - A bovine bioprosthetic aortic valve is present. The prosthetic aortic valve appears to be functioning normally. - There is moderate to severe tricuspid valve regurgitation. The right ventricular systolic pressure is 90 mmHg. Significantly elevated right atrial pressure. Severe pulmonary hypertension is present. Findings Left Ventricle Normal left ventricular size and systolic function. The visually estimated ejection fraction is between 65-70%. There is no evidence of regional wall motion abnormalities. Abnormal diastolic function is noted. Spectral Doppler is indicative of a restrictive filling pattern. Elevated filling pressures. Right Ventricle Severely increased right ventricular cavity size. There is mild to moderately decreased right ventricular systolic function. Atria The left atrium is moderately dilated. The right atrium is severely dilated. Aortic Valve A bovine bioprosthetic aortic valve is present. The prosthetic aortic valve appears to be functioning normally. There is no aortic valve stenosis. There is no aortic valve regurgitation. Mitral Valve There is mild mitral annular calcification. There is trace mitral valve regurgitation. There is no mitral valve stenosis. Pulmonic Valve The pulmonic valve is normal. There is no pulmonic valve regurgitation. Tricuspid Valve There is moderate to severe tricuspid valve regurgitation. The right ventricular systolic pressure is 90 mmHg. Significantly elevated right atrial pressure. Severe pulmonary hypertension is present. Great Vessels There is mild dilatation of the ascending aorta measuring 3.70 cm. The visualized portions of the pulmonary artery and branches are normal. Venous The inferior vena cava is normal in size and does not collapse with inspiration. Pericardium/Pleural There is no evidence of pericardial effusion. Prior Study Comparison Significant changes compared to prior study dated: 02/15/2017. RV dilated and mild to mod dysfunction, severe pulm HTN. s/p AVR now. Measurements 2D Linear Measurements Ao Root: 3.00 2.1-3.5 cm LVOT Diam: 2.00 3.0+(-)1.3 cm Mitral Valve MV VTI: 0.37 MV Pk Al: 1.31 MV Mn Al: 0.57 MV Pk Grad: 7.00 MV Mn Grad: 2.00 MV Pk E: 1.36 MV PK A: 0.37 MV Decel Time: 154.00 E/A: 3.60 E'Lateral: 9.46 E'Medial: 7.07 E/E' Med: 19.20 E/E' Lat: 14.40 PHT: 45.00 MVA PHT: 4.89 MVA Continuity: 1.62 Decel [place]: 8.85 Aortic Valve AoV Pk Al: 1.65 AoV Mn Al: 1.07 AoV VTI: 0.34 AoV Pk Grad: 11.00 Aov Mn Grad: 5.00 NICK Cont.VTI: 1.79 LVOT LVOT Pk Al: 0.97 LVOT Mn Al: 0.63 LVOT VTI: 0.19 LVOT Pk Grad: 4.00 LVOT Mn Grad: 2.00 LVOT Diam: 2.00 LVOT Area: 3.14 Diastolic Function MV Pk E: 1.36 MV Pk A: 0.37 E/A: 3.60 E'Medial: 7.07 E/E' Med: 19.20 E' Laterial: 9.46 E/E' Lat: 14.40 Right Ventricle TAPSE (mm): 23.00 TVS' Al: 12.00 Tricuspid Valve TR Pk Al: 4.54 TR Pk Grad: 82.00 RA Press: 8.00 RVSP: 90.00 Great Vessels Aorta Ao Root-2D: 3.00 2.0-3.7 cm Ao Asc: 3.70 2.1-3.4 cm Pulmonary Valve PV Pk Al: 0.81 Peak PV Grad: 3.00 Updated in Other Vendor System with Status of Final Jimmy Li MD electronically signed on 11/02/2022 9:07:57 PM with status of Final
[2022-11-02 07:27] LABS: Anion Gap 14 (12-20); Blood Urea Nitrogen 30 mg/dL (9-16); Calcium 8.7 mg/dL (8.4-10.2); Carbon Dioxide 20 mmol/L (22-29); Chloride 111 mmol/L (96-108); Creatinine Clr Calc Pharmacy 46.7; Estimated Glomerular Filt Rate 50; Glucose Random 98 mg/dL (60-115); Potassium 3.6 mmol/L (3.3-5.1); Sodium 141 mmol/L (135-145)
[2022-11-02] MEDS: Potassium Chloride ER 10 MEQ TABLET.ER 20 MEQ PO (08:32)
[2022-11-02] MEDS: Furosemide 40 MG/4 ML VIAL IVPUSH ×2 (08:33→21:14)
[2022-11-02] MEDS: Aspirin Enteric Coated 81 MG TABLET.DR PO (08:33)
[2022-11-02] MEDS: 0.9 % Sodium Chloride Flush 3 ML SYRINGE IVFLUSH ×2 (08:33→16:12)
[2022-11-02] MEDS: Metoprolol Tartrate 25 MG TABLET PO ×3 (08:33→16:12)
--- NOTE | 2022-11-02 09:40 | MHC.CM.PN ---
IMM 11/02. Pt admitted with dx CHF exacerbation. Pt lives at home with his , is independent/self-care, uses a cane on occasion. D/C plan to return home self care when medically cleared. Pts to transport. HCP completed, on file. PCP: Nader [place] vax: x 3
[2022-11-02 09:45] LABS: Iron 16 mcg/dL (45-160); Percent Iron Saturation 4 % (15-50); Total Iron Binding Capacity 357 mcg/dL (228-428); Unsaturated Iron Binding 341 ug/dL
--- NOTE | 2022-11-02 10:27 | HO.PM.IMPN ---
Subjective Subjective Date of Service: 11/02/22 Interval History: improving Physical Exam Vital Signs: Vital Signs: Last Vital Signs Temp 97.0 F 11/02/22 07:39 Pulse 82 11/02/22 07:39 Resp 20 11/02/22 07:39 BP 142/66 H 11/02/22 07:39 Pulse Ox 95 11/02/22 07:39 O2 Del Method Room Air 11/02/22 07:39 BMI result Body Mass Index 25.6 General: AO X 3, no acute distress Resp: CTA bilateral, no accessory muscles used CVS: S1,S2,RRR, 2+ bilateral edema GI: soft, non tender, non distended Neuro: motor grossly intact, alert Psych: appropriate affect, appropriate insight Objective Data Active Medications Acetaminophen (Acetaminophen 325 Mg Tablet) 650 mg PO Q6H PRN PRN Reason: Pain, Mild (Pain Scale 1-3) Albuterol Sulfate (Albuterol Sulfate 90 Mcg 8 Gm Inhaler) 1 puff INHALE Q4H PRN PRN Reason: Shortness Of Breath Aspirin (Aspirin Enteric Coated 81 Mg Tablet.) 81 mg PO DAILY [facility] Last Admin: 11/02/22 08:33 Dose: 81 mg Documented By: TREVOR Atorvastatin Calcium (Atorvastatin Calcium 80 Mg Tablet) 80 mg PO BEDTIME [facility] Last Admin: 11/01/22 20:26 Dose: 80 mg Documented By: GINA Calcium Carbonate (Calcium Carbonate 500 Mg Tablet) 500 mg PO DAILY [facility] Last Admin: 11/02/22 08:33 Dose: 500 mg Documented By: TREVOR Docusate Sodium (Docusate Sodium 100 Mg Capsule) 100 mg PO DAILY PRN PRN Reason: Constipation Ezetimibe (Ezetimibe 10 Mg Tablet) 10 mg PO BEDTIME [facility] Last Admin: 11/01/22 20:29 Dose: 10 mg Documented By: GINA Furosemide (Furosemide 40 Mg/4 Ml Vial) 40 mg IVPUSH BID [facility]; Protocol Last Admin: 11/02/22 08:33 Dose: 40 mg Documented By: TREVOR Metoprolol Tartrate (Metoprolol Tartrate 25 Mg Tablet) 25 mg PO TID@0800,1200,1600 [facility]; Protocol Last Admin: 11/02/22 08:33 Dose: 25 mg Documented By: TREVOR Ondansetron HCl (Ondansetron Hcl 4 Mg/2 Ml Vial) 4 mg IVPUSH Q8H PRN PRN Reason: Nausea and Vomiting Pharmacy Consult (Consult Rx Perform Med Rec) 1 each MISCELLANE ONCE PRN PRN Reason: Consult order Potassium Chloride (Potassium Chloride Er 10 Meq Tablet.Er) 20 meq PO DAILY [facility] Last Admin: 11/02/22 08:32 Dose: 20 meq Documented By: TREVOR Rivaroxaban (Rivaroxaban 15 Mg Tablet) 15 mg PO DAILY@1700 [facility] Sodium Chloride (0.9 % Sodium Chloride Flush 3 Ml Syringe) 3 ml IVFLUSH QSHIFT [facility] Last Admin: 11/02/22 08:33 Dose: 3 ml Documented By: TREVOR Labs 11/02/22 06:20 11/02/22 06:20 Labs: Laboratory Results - last 24 hr 11/01/22 11/01/22 11/01/22 11:50 11:51 11:52 MCV 91.9 MCH 28.3 MCHC 30.8 L RDW 16.1 H Plt Count 307 MPV 9.1 L Immature Gran % (Auto) 0.6 H Neut % (Auto) 76.4 H Lymph % (Auto) 6.3 L [place] % (Auto) 15.5 H Eos % (Auto) 0.6 Baso % (Auto) 0.6 Lymph # (Auto) 0.5 L [place] # (Auto) 1.3 H Eos # (Auto) 0.1 Baso # (Auto) 0.1 Abs Immat Gran (auto) 0.05 H Absolute Neuts (auto) 6.5 Absolute Nucleated RBC 0.000 Nucleated RBC % (auto) 0.0 Anion Gap 16 Estim Creat Clear Calc 38.3 Estimated GFR 40 Random Glucose 129 H Calcium 8.7 Magnesium 2.3 Iron TIBC % Saturation Unsat Iron Binding Total Bilirubin 0.8 AST 29 ALT 17 Alkaline Phosphatase 59 B-Natriuretic Peptide Total Protein 7.4 Albumin 3.7 Urine Color Urine Appearance Urine pH Ur Specific [place] Urine Protein Urine Glucose (UA) Urine Ketones Urine Blood Urine Nitrite Ur Leukocyte Esterase Urine RBC Urine WBC Ur Squamous Epith Cells Urine Bacteria Hyaline Casts COVID-19 (BETTINA) Negative COVID-19 Clin Com See Note 11/01/22 11/01/22 11/02/22 11:52 12:34 06:20 MCV 91.5 MCH 28.2 MCHC 30.9 L RDW 16.1 H Plt Count 247 MPV 9.4 Immature Gran % (Auto) 0.6 H Neut % (Auto) 74.2 H Lymph % (Auto) 6.4 L [place] % (Auto) 17.3 H Eos % (Auto) 1.1 Baso % (Auto) 0.4 Lymph # (Auto) 0.5 L [place] # (Auto) 1.2 Eos # (Auto) 0.1 Baso # (Auto) 0.0 Abs Immat Gran (auto) 0.04 H Absolute Neuts (auto) 5.3 Absolute Nucleated RBC 0.000 Nucleated RBC % (auto) 0.0 Anion Gap Estim Creat Clear Calc Estimated GFR Random Glucose Calcium Magnesium Iron TIBC % Saturation Unsat Iron Binding Total Bilirubin AST ALT Alkaline Phosphatase B-Natriuretic Peptide 1019 H Total Protein Albumin Urine Color Yellow Urine Appearance Clear Urine pH 5.0 Ur Specific [place] 1.010 Urine Protein Negative Urine Glucose (UA) Negative Urine Ketones Negative Urine Blood Negative Urine Nitrite Negative Ur Leukocyte Esterase Trace H Urine RBC 0-2 Urine WBC 6-10 H Ur Squamous Epith Cells 0-2 Urine Bacteria None Seen Hyaline Casts 3-5 COVID-19 (BETTINA) COVID-19 Clin Com 11/02/22 06:20 MCV MCH MCHC RDW Plt Count MPV Immature Gran % (Auto) Neut % (Auto) Lymph % (Auto) [place]y % (Auto) Eos % (Auto) Baso % (Auto) Lymph # (Auto) [place] # (Auto) Eos # (Auto) Baso # (Auto) Abs Immat Gran (auto) Absolute Neuts (auto) Absolute Nucleated RBC Nucleated RBC % (auto) Anion Gap 14 Estim Creat Clear Calc 46.7 Estimated GFR 50 Random Glucose 98 Calcium 8.7 Magnesium Iron 16 L TIBC 357 % Saturation 4 L Unsat Iron Binding 341 Total Bilirubin AST ALT Alkaline Phosphatase B-Natriuretic Peptide Total Protein Albumin Urine Color Urine Appearance Urine pH Ur Specific [place] Urine Protein Urine Glucose (UA) Urine Ketones Urine Blood Urine Nitrite Ur Leukocyte Esterase Urine RBC Urine WBC Ur Squamous Epith Cells Urine Bacteria Hyaline Casts COVID-19 (BETTINA) COVID-19 Clin Com Microbiology Microbiology Results: Microbiology 11/01/22 Unknown Urine Culture - Final Urine clean catch - Urine bradford top No growth. Assessment and Plan (1) CHF (congestive heart failure): Status: Acute Plan 82M PMH paroxysmal atrial fibrillation on Xarelto, hypertension, hyperlipidemia, chronic diastolic CHF, CAD status post CABG, carotid stenosis, aortic stenosis s/p bio AVR, presented with shortness of breath and lower extremity edema Acute on chronic CHF with preserved ejection fraction IV Lasix, echo, cardia following Hypertension Continue metoprolol Paroxysmal atrial fibrillation Xarelto, metoprolol Coronary disease Aspirin, Xarelto, statin DVT prophylaxis on Xarelto Full code reason for continued hospitalization: IV diuresis Time Spent With Patient Time: Total time managing care of this patient today ____ minutes. Quality Stroke Does the patient have a stroke diagnosis?: No VTE Prior VTE?: No VTE Risk Level:: Medical - moderate - high VTE Device Contraindication: Treatment Not Indicated VTE Drug Contraindication: N/A - Med Ordered
[2022-11-02 11:25] LABS: Ferritin 180 ng/mL (20-250)
--- NOTE | 2022-11-02 12:41 | PM.PNCARD ---
Subjective Subjective Date of Service: 11/02/22 Interval history: Seen and examined at bedside. Continues to have edema and congestion but improved somewhat from breathing point of view. Physical Exam Vital Signs: Last Vital Signs Temp 97.3 F 11/02/22 11:23 Pulse 64 11/02/22 11:23 Resp 20 11/02/22 11:23 BP 113/55 L 11/02/22 11:23 Pulse Ox 98 11/02/22 11:23 O2 Del Method Room Air 11/02/22 11:23 BMI result Body Mass Index 25.6 GENERAL APPEARANCE: in no acute distress, pleasant. NECK: no carotid bruit, positive jugular venous distention. Prominent V-wave. SKIN: no suspicious lesions, warm and dry. HEART: Regular rate rhythm. Systolic murmur at the apex. Holosystolic murmur left sternal border. LUNGS: clear to auscultation bilaterally. ABDOMEN: soft, nontender. EXTREMITIES: 2+ to 3+ edema. PERIPHERAL PULSES: equal. NEUROLOGIC: No gross deficits, AAO X 3 Objective Labs and Meds 11/02/22 06:20 11/02/22 06:20 Lab results: Laboratory Results - last 24 hr 11/01/22 11/01/22 11/02/22 12:34 14:41 06:20 WBC 7.2 RBC 2.94 L Hgb 8.3 L Hct 26.9 L MCV 91.5 MCH 28.2 MCHC 30.9 L RDW 16.1 H Plt Count 247 MPV 9.4 Immature Gran % (Auto) 0.6 H Neut % (Auto) 74.2 H Lymph % (Auto) 6.4 L [place] % (Auto) 17.3 H Eos % (Auto) 1.1 Baso % (Auto) 0.4 Lymph # (Auto) 0.5 L [place] # (Auto) 1.2 Eos # (Auto) 0.1 Baso # (Auto) 0.0 Abs Immat Gran (auto) 0.04 H Absolute Neuts (auto) 5.3 Absolute Nucleated RBC 0.000 Nucleated RBC % (auto) 0.0 Sodium Potassium Chloride Carbon Dioxide Anion Gap BUN Creatinine Estim Creat Clear Calc Estimated GFR Random Glucose Calcium Iron TIBC % Saturation Unsat Iron Binding Ferritin Troponin I High Sens 76.4 H Urine Color Yellow Urine Appearance Clear Urine pH 5.0 Ur Specific [place] 1.010 Urine Protein Negative Urine Glucose (UA) Negative Urine Ketones Negative Urine Blood Negative Urine Nitrite Negative Ur Leukocyte Esterase Trace H Urine RBC 0-2 Urine WBC 6-10 H Ur Squamous Epith Cells 0-2 Urine Bacteria None Seen Hyaline Casts 3-5 11/02/22 06:20 WBC RBC Hgb Hct MCV MCH MCHC RDW Plt Count MPV Immature Gran % (Auto) Neut % (Auto) Lymph % (Auto) [place] % (Auto) Eos % (Auto) Baso % (Auto) Lymph # (Auto) [place] # (Auto) Eos # (Auto) Baso # (Auto) Abs Immat Gran (auto) Absolute Neuts (auto) Absolute Nucleated RBC Nucleated RBC % (auto) Sodium 141 Potassium 3.6 Chloride 111 H Carbon Dioxide 20 L Anion Gap 14 BUN 30 H Creatinine 1.36 Estim Creat Clear Calc 46.7 Estimated GFR 50 Random Glucose 98 Calcium 8.7 Iron 16 L TIBC 357 % Saturation 4 L Unsat Iron Binding 341 Ferritin 180 Troponin I High Sens Urine Color Urine Appearance Urine pH Ur Specific [place] Urine Protein Urine Glucose (UA) Urine Ketones Urine Blood Urine Nitrite Ur Leukocyte Esterase Urine RBC Urine WBC Ur Squamous Epith Cells Urine Bacteria Hyaline Casts Progress Note: A&P Assessment and plan (1) PAF (paroxysmal atrial fibrillation): Status: Acute (2) Acute congestive heart failure: Status: Acute Plan [age] gentleman with background of CABG AVR presenting with acute congestive heart failure. He has murmurs of tricuspid regurgitation and mitral regurgitation. Will get the echocardiogram. He is-1600 mL in the last 24 hours. I think we continue the Lasix at the same dose. If his urine output is dropping then he may need higher doses of Lasix. Monitor electrolytes and kidney function closely. We will get the echocardiogram today. Thank you for allowing me to participate in the care of your patient. Please feel free to contact me if you have any questions. Time Spent With Patient Time: Total time managing care of this patient today ____ minutes. Progress Note: Quality Stroke Does the patient have a stroke diagnosis?: No Procedures Date of Service Date of Service: 11/02/22
[2022-11-02] MEDS: Potassium Chloride ER 20 MEQ TAB.ER.PRT PO (13:27)
[2022-11-02] MEDS: metOLazone 2.5 MG TABLET PO (13:27)
[2022-11-02] MEDS: Rivaroxaban 15 MG TABLET PO (16:12)
[2022-11-02] MEDS: Ezetimibe 10 MG TABLET PO (21:14)
[2022-11-02] MEDS: Atorvastatin Calcium 80 MG TABLET PO (21:14)
[2022-11-03] MEDS: 0.9 % Sodium Chloride Flush 3 ML SYRINGE IVFLUSH ×4 (00:08→20:50)
[2022-11-03 03:30] VITALS: BP 106/56; PULSE 74; RESP 17; TEMP 37.1; O2SAT 96
[2022-11-03 05:57] VITALS: BMI 25.6
[2022-11-03 06:45] LABS: Hematocrit 25.4 % (42.0-52.0); Hemoglobin 8.2 g/dl (14.0-18.0); Mean Corpuscular HGB Conc 32.3 g/dl (31.0-36.0); Mean Corpuscular Hemoglobin 28.9 pg (27.0-33.0); Mean Corpuscular Volume 89.4 fL (80.0-98.0); Mean Platelet Volume 9.3 fL (9.4-12.4); Platelet Count 242 X10*3/uL (160-400); Red Blood Count 2.84 X10*6/uL (4.60-5.80); Red Cell Distribution Width 16.1 % (11.0-16.0); White Blood Count 7.5 X10*3/uL (4.8-10.8)
[2022-11-03 07:06] LABS: Anion Gap 12 (12-20); Blood Urea Nitrogen 30 mg/dL (9-16); Calcium 8.9 mg/dL (8.4-10.2); Carbon Dioxide 22 mmol/L (22-29); Chloride 107 mmol/L (96-108); Estimated Glomerular Filt Rate 54; Glucose Fasting 90 mg/dL (60-99); Magnesium 1.9 mg/dL (1.6-2.6); Potassium 3.4 mmol/L (3.3-5.1); Sodium 138 mmol/L (135-145)
[2022-11-03 07:17] VITALS: BP 119/58; PULSE 76; RESP 20; TEMP 36.1; O2SAT 92
[2022-11-03] MEDS: Furosemide 40 MG/4 ML VIAL 60 MG IVPUSH ×2 (07:51→20:50)
[2022-11-03] MEDS: Potassium Chloride ER 20 MEQ TAB.ER.PRT 40 MEQ PO (07:52)
[2022-11-03] MEDS: Metoprolol Tartrate 25 MG TABLET PO ×3 (07:52→16:01)
[2022-11-03] MEDS: Aspirin Enteric Coated 81 MG TABLET.DR PO (07:52)
--- NOTE | 2022-11-03 10:33 | P.PNIM_ITS ---
Subjective Subjective Date of Service: 11/03/22 Interval History: Seen and evaluated this morning Feels better overall still having LE Edema and reports dyspnea on exertion No chest pain made -500 ml last 24 hours Review of Systems Review of Systems: Yes all other systems are reviewed and are negative Physical Exam Vital Signs: Vital Signs: Last Vital Signs Temp 97.0 F 11/03/22 07:17 Pulse 76 11/03/22 07:17 Resp 20 11/03/22 07:17 BP 119/58 L 11/03/22 07:17 Pulse Ox 92 11/03/22 07:17 O2 Del Method Room Air 11/03/22 07:17 BMI result Body Mass Index 25.6 Const: Other: Constitutional : Awake, interactive, not in distress Neck : Normal inspection, Supple Cardiovascular : RRR, no JVP, +1 lower extremity edema Respiratory : good bilateral air entry, fine basal crackles Gastrointestinal: soft, lax, Normal bowel sounds, Non tender Skin : Warm, Dry Neurological : Alert & oriented x3, No focal deficit Objective Data Active Medications Acetaminophen (Acetaminophen 325 Mg Tablet) 650 mg PO Q6H PRN PRN Reason: Pain, Mild (Pain Scale 1-3) Albuterol Sulfate (Albuterol Sulfate 90 Mcg 8 Gm Inhaler) 1 puff INHALE Q4H PRN PRN Reason: Shortness Of Breath Aspirin (Aspirin Enteric Coated 81 Mg Tablet.) 81 mg PO DAILY [facility] Last Admin: 11/03/22 07:52 Dose: 81 mg Documented By: TOI Atorvastatin Calcium (Atorvastatin Calcium 80 Mg Tablet) 80 mg PO BEDTIME [facility] Last Admin: 11/02/22 21:14 Dose: 80 mg Documented By: JANNET Calcium Carbonate (Calcium Carbonate 500 Mg Tablet) 500 mg PO DAILY [facility] Last Admin: 11/03/22 07:52 Dose: 500 mg Documented By: TOI Docusate Sodium (Docusate Sodium 100 Mg Capsule) 100 mg PO DAILY PRN PRN Reason: Constipation Ezetimibe (Ezetimibe 10 Mg Tablet) 10 mg PO BEDTIME [facility] Last Admin: 11/02/22 21:14 Dose: 10 mg Documented By: JANNET Furosemide (Furosemide 40 Mg/4 Ml Vial) 60 mg IVPUSH BID [facility]; Protocol Last Admin: 11/03/22 07:51 Dose: 60 mg Documented By: TOI Metoprolol Tartrate (Metoprolol Tartrate 25 Mg Tablet) 25 mg PO TID@0800,1200,1600 [facility]; Protocol Last Admin: 11/03/22 07:52 Dose: 25 mg Documented By: TOI Ondansetron HCl (Ondansetron Hcl 4 Mg/2 Ml Vial) 4 mg IVPUSH Q8H PRN PRN Reason: Nausea and Vomiting Pharmacy Consult (Consult Rx Perform Med Rec) 1 each MISCELLANE ONCE PRN PRN Reason: Consult order Potassium Chloride (Potassium Chloride Er 20 Meq Tab.Er.Prt) 40 meq PO DAILY [facility] Last Admin: 11/03/22 07:52 Dose: 40 meq Documented By: TOI Rivaroxaban (Rivaroxaban 15 Mg Tablet) 15 mg PO DAILY@1700 [facility] Last Admin: 11/02/22 16:12 Dose: 15 mg Documented By: LESSARL Sodium Chloride (0.9 % Sodium Chloride Flush 3 Ml Syringe) 3 ml IVFLUSH QSHIFT [facility] Last Admin: 11/03/22 07:52 Dose: 3 ml Documented By: TOI Labs 11/03/22 05:45 11/03/22 05:45 Labs: Laboratory Results - last 24 hr 11/02/22 11/03/22 11/03/22 06:20 05:45 05:45 MCV 89.4 MCH 28.9 MCHC 32.3 RDW 16.1 H Plt Count 242 MPV 9.3 L Absolute Nucleated RBC 0.000 Nucleated RBC % (auto) 0.0 Anion Gap 12 Estim Creat Clear Calc 50.0 Estimated GFR 54 Fasting Glucose 90 Calcium 8.9 Magnesium 1.9 Ferritin 180 Microbiology Microbiology Results: Microbiology 11/01/22 Unknown Urine Culture - Final Urine clean catch - Urine bradford top No growth. Assessment and Plan (1) CHF (congestive heart failure): Status: Acute Plan 82M PMH paroxysmal atrial fibrillation on Xarelto, hypertension, hyperlipidemia, chronic diastolic CHF, CAD status post CABG, carotid stenosis, aortic stenosis s/p bio AVR, presented with shortness of breath and lower extremity edema Acute on chronic CHF with preserved ejection fraction Continue IV Lasix echo showing EF 65-70, mod-sev TV regurg, cardiology following follow I\O Hypertension Continue metoprolol Paroxysmal atrial fibrillation Xarelto, metoprolol Coronary disease Aspirin, Xarelto, statin DVT prophylaxis on Xarelto Full code reason for continued hospitalization: IV diuresis pending clinical improvement Time Spent With Patient Time: Total time managing care of this patient today ____ minutes. Quality Stroke Does the patient have a stroke diagnosis?: No VTE Prior VTE?: No VTE Risk Level:: Medical - moderate - high VTE Device Contraindication: Treatment Not Indicated VTE Drug Contraindication: N/A - Med Ordered
[2022-11-03 11:00] VITALS: BP 121/58; PULSE 74; RESP 20; TEMP 36.1; O2SAT 94
[2022-11-03 11:51] LABS: B Type Natriuretic Peptide 512 pg/mL (<100)
--- NOTE | 2022-11-03 12:40 | PM.PNCARD ---
Subjective Subjective Date of Service: 11/03/22 Interval history: Seen examined at bedside. ECHO has shown RV dysfunction with severe pulmonary hypertension. He is also anemic and his hemoglobin has slowly drifted down to 8. Physical Exam Vital Signs: Last Vital Signs Temp 96.9 F 11/03/22 11:00 Pulse 74 11/03/22 11:00 Resp 20 11/03/22 11:00 BP 121/58 L 11/03/22 11:00 Pulse Ox 94 11/03/22 11:00 O2 Del Method Room Air 11/03/22 11:00 BMI result Body Mass Index 25.6 GENERAL APPEARANCE: in no acute distress, pleasant. NECK: no carotid bruit, positive jugular venous distention. Prominent V-wave. SKIN: no suspicious lesions, warm and dry. HEART: Regular rate rhythm. Systolic murmur at the apex. Holosystolic murmur left sternal border. LUNGS: clear to auscultation bilaterally. ABDOMEN: soft, nontender. EXTREMITIES: 2+ edema. PERIPHERAL PULSES: equal. NEUROLOGIC: No gross deficits, AAO X 3 Objective Labs and Meds 11/03/22 05:45 11/03/22 05:45 Lab results: Laboratory Results - last 24 hr 11/03/22 11/03/22 11/03/22 05:45 05:45 05:45 WBC 7.5 RBC 2.84 L Hgb 8.2 L Hct 25.4 L MCV 89.4 MCH 28.9 MCHC 32.3 RDW 16.1 H Plt Count 242 MPV 9.3 L Absolute Nucleated RBC 0.000 Nucleated RBC % (auto) 0.0 Sodium 138 Potassium 3.4 Chloride 107 Carbon Dioxide 22 Anion Gap 12 BUN 30 H Creatinine 1.27 Estim Creat Clear Calc 50.0 Estimated GFR 54 Fasting Glucose 90 Calcium 8.9 Magnesium 1.9 B-Natriuretic Peptide 512 H Progress Note: A&P Assessment and plan (1) CHF (congestive heart failure): Status: Acute (2) PAF (paroxysmal atrial fibrillation): Status: Acute Plan Pleasant 82-year-old gentleman status post bypass surgery and aortic valve replacement by prostatic valve presenting for congestive heart failure. He has clinically right heart failure. Lasix dose was increased to 60 mg IV b.i.d.. If he does not diurese well then he should go up to 80 mg IV b.i.d.. Adding spironolactone 25 mg twice a day. Holding the potassium supplements for now. Based on daily potassium levels we can give some supplements while spironolactone kicks in. Etiology was pulmonary hypertension is unclear. He is clearly has severe pulmonary hypertension. He is also volume overloaded right now which is adding to the elevated pressures. We will follow along. Thank you for allowing me to participate in the care of your patient. Please feel free to contact me if you have any questions. Time Spent With Patient Time: Total time managing care of this patient today ____ minutes. Progress Note: Quality Stroke Does the patient have a stroke diagnosis?: No Procedures Date of Service Date of Service: 11/03/22
[2022-11-03 15:12] VITALS: BP 124/58; PULSE 75; RESP 18; TEMP 36.2; O2SAT 97
[2022-11-03] MEDS: Rivaroxaban 15 MG TABLET PO (16:01)
[2022-11-03] MEDS: Spironolactone 25 MG TABLET PO (17:48)
[2022-11-03 19:31] VITALS: BP 125/59; PULSE 68; RESP 18; TEMP 35.9; O2SAT 96
[2022-11-03] MEDS: Ezetimibe 10 MG TABLET PO (20:49)
[2022-11-03] MEDS: Atorvastatin Calcium 80 MG TABLET PO (20:50)
[2022-11-03 23:54] VITALS: BP 133/60; PULSE 70; RESP 18; TEMP 36.5; O2SAT 97
[2022-11-04 04:00] VITALS: BP 110/58; PULSE 81; RESP 18; TEMP 36.3; O2SAT 93
[2022-11-04 06:00] VITALS: BMI 24.5
[2022-11-04 07:22] VITALS: BP 107/56; PULSE 68; RESP 20; TEMP 36.4; O2SAT 96
[2022-11-04] MEDS: Metoprolol Tartrate 25 MG TABLET PO ×2 (09:11→11:08)
[2022-11-04] MEDS: Furosemide 40 MG/4 ML VIAL 60 MG IVPUSH (09:11)
[2022-11-04] MEDS: 0.9 % Sodium Chloride Flush 3 ML SYRINGE IVFLUSH (09:11)
[2022-11-04] MEDS: Spironolactone 25 MG TABLET PO (09:12)
--- NOTE | 2022-11-04 09:52 | P.DS_ITS ---
DS: Providers Provider Date of Service: 11/04/22 Date of admission: 11/01/22 14:38 Primary care physician: Nader Josue MD Consults: 11/01/22 13:22 Consult to Cardiology Routine Consulting Provider[place] [facility] Reason for consultation: CHF Has provider been notified: Yes DS: Diagnosis Discharge Diagnosis (1) CHF (congestive heart failure): Status: Acute (2) PAF (paroxysmal atrial fibrillation): Status: Acute DS: Summary Hospital Course Hospital Course: Admission note HPI An 82 year old male with history of paroxysmal atrial fibrillation on xarelto, htn, hld, HFpEF, CAD s/p CABG, carotid stenosis, s/p bovine valve replacement, and OA presented to the ED earlier today from PCP office for evaluation of dyspnea on exertion and bilateral lower extremity edema that has been worsening over the last few weeks.? He denies any lightheadedness, palpitations, dyspnea at rest, PND, orthopnea.? Does endorse a nocturnal cough.? He follows with Dr. Head at [facility] and did have echocardiogram 01/19/2022 which showed normal LV systolic function with grade 3 severe diastolic function with restrictive LV filling and elevated left atrial pressure with mild asymmetric septal hypertrophy with septal thickness 13-15 mm and normal functioning aortic bioprosthetic tissue valve, mild mitral regurgitation, and moderate mitral annular calcifications.? He reports compliance with home Lasix. On arrival, vital stable.? There is no leukocytosis.? He has a stable normocytic anemia with H/H 9.1/29.5%.? Creatinine slightly above baseline at 1.66 (baseline 1.39), BUN 34, electrolyte levels normal except for CO2 of 16.? Initial troponin 78.3, repeat pending.? BNP 1019.? Urinalysis unremarkable.? Negative for COVID- 19.? CXR showing small left pleural effusion with super adjacent hazy opacities likely representing layering with atelectasis and associated infiltrate cannot be excluded.? EKG shows normal sinus rhythm, rate 64 with incomplete right bundle-branch block and nonspecific ST abnormality.? While in the ED, he was evaluated by cardiology is recommending admission with Lasix 40 mg IV b.i.d. In the ED, given lasix 40mg IV. Hospital course The patient was admitted primarily for Acute on chronic CHF with preserved ejection fraction with fluid overload treated with IV Lasix with good response over the course of hospital stay as echo showing EF 65-70, mod-sev TV regurg. Evaluated by cardiology who added Spironolactone. To be followed as outpatient. Noted to have drop in hemoglobin with low Iron stores likely related to unnoticed chronic GI loss from being on blood thinners. started on Iron supplement for now and will need further evaluation as outpatient and possible Gi evaluation as anemia might be contributing to this exacerbation of CHF. No evidence of bleeding during hospital stay. Low sodium diet Monitor weight at home and report changes to PCP Start Spironolactony along with lasix Start Iron supplement To follow with PCP for further evaluation of anemia Time Spent with Patient Time attestation: Total time managing care of this patient today ____ minutes. Discharge coordination time: Greater than 30 minutes Quality: Safe Use of Opioids Does Pt have an Active Cancer Diagnosis on the Problem List?: No Quality: Stroke Does the patient have a stroke diagnosis?: No Physical Exam Vital Signs: Vital Signs: Last Vital Signs Temp 97.6 F 11/04/22 07:22 Pulse 68 11/04/22 07:22 Resp 20 11/04/22 07:22 BP 107/56 L 11/04/22 07:22 Pulse Ox 96 11/04/22 07:22 O2 Del Method Room Air 11/04/22 07:22 BMI result Body Mass Index 24.5 Const: Other: Constitutional : Awake, interactive, not in distress Neck : Normal inspection, Supple Cardiovascular : RRR, no JVP, trace lower extremity edema Respiratory : good bilateral air entry, no crackles, on room air Gastrointestinal: soft, lax, Normal bowel sounds, Non tender Skin : Warm, Dry Neurological : Alert & oriented x3, No focal deficit DS: Data Data Completed and Pending Labs on day of discharge: Laboratory Results - last 24 hr 11/03/22 05:45 B-Natriuretic Peptide 512 H Imaging Chest x-ray: Radiologist's impression: ITS Impressions Chest X-Ray 11/01/22 12:15 IMPRESSION: Small left pleural effusion with superjacent hazy opacities likely representing layering with atelectasis. An associated infiltrate cannot be excluded. Discharge Plan Discharge Anticipated Discharge Date/Time: 11/04/22 09:41 Patient Disposition: Home, Self-Care Discharge Diagnosis: Heart failure exacerbation Referrals: Nader Josue MD [Primary Care Provider] - 1 Week Discharge Medications: New spironolactone 25 mg Tablet 25 mg PO BID@0900,1800 Qty: 60 0RF Protocol: Hold for SBP< HOLD for SBP < : 90 ferrous sulfate 324 mg (65 mg iron) tablet,delayed release (DR/EC) 324 mg PO BID Qty: 60 0RF Continued potassium chloride [Klor-Con 10] 10 mEq Tablet Extended Release 20 meq PO DAILY calcium carbonate 500 mg calcium (1,250 mg) Tablet 500 mg PO DAILY albuterol sulfate 90 mcg/actuation HFA aerosol inhaler 1 puff inhalation Q4H PRN (Reason: Shortness Of Breath) ezetimibe 10 mg Tablet 10 mg PO BEDTIME omega-3 fatty acids Capsule 1,000 mg PO DAILY rosuvastatin 40 mg Tablet 20 mg PO BEDTIME Xarelto 15 mg tablet 15 mg PO DAILY furosemide 80 mg tablet 80 mg PO DAILY metoprolol tartrate 25 mg tablet 25 mg PO TID@0800,1200,1600 aspirin [Adult Aspirin Regimen] 81 mg tablet,delayed release (DR/EC) 81 mg PO DAILY Discontinued ciprofloxacin HCl 500 mg tablet 500 mg PO Q12H Discharge Orders: Discharge Order (Routine); Ordered 11/04/22 Ordered By: Marina Navarro Diet: Low salt diet Activity on Discharge: As tolerated Stand Alone Forms: Patient Portal Discharge page Care Plan Goals: Read below Health Concerns: Read below Plan of Treatment: Read below Assessment: You were admitted for treatment of heart failure exacerbation. responded well to IV lasix and addition of Spironolactone as you were evaluated by insurance billing specialist. You were noted to have drop in your blood level. Will start you on Iron supplement and you will need to follow up with your primary for further evaluation of anemia. Low sodium diet Monitor weight at home and report changes to PCP Start Spironolactony along with lasix Start Iron supplement To follow with PCP for further evaluation of anemia Discharge Date/Time: 11/04/22 12:53
--- NOTE | 2022-11-04 09:54 | MHC.CM.PN ---
Patient has been medically cleared for dc to home today, self care. Last IMM addressed on 11/02/2022.
[2022-11-04 11:06] VITALS: BP 111/56; PULSE 67; RESP 20; TEMP 36.1; O2SAT 100
--- NOTE | 2022-11-05 08:04 | P.CDIM_ITS ---
PROVIDER RESPONSE TEXT: To clarify, the appropriate diagnosis supported by the clinical indicators: Iron deficiency anemia QUERY TEXT: PHYSICIAN'S DOCUMENTATION REQUEST Date of Query: 11/04/2022 08:10 AM EDT Patient Name: Pedro Lobato Admit Date: 11/01/2022 Dear Marina Navarro, A review of the medical record indicates additional documentation may be needed. Please review below and update the documentation accordingly. Clinical Indicators: LAB FINDINGS: Iron 16 L H&P: patient is anemic with H/H 9.1/29.5 Based on the above, is there a diagnosis that correlates to these lab findings: Iron deficiency anemia Other please specify Other (explain)Clinically unable to determine (explain)Thank you, Laly Ramos, CCS, CDIS Use of terms such as suspected, likely, concern for, or probable (associated with a specific diagnosi s that is being evaluated, monitored, or treated as if it exists) are acceptable and can be coded in the inpatient se tting, when documented at the time of discharge. Please use your independent medical judgment in providing your response. THIS QUERY IS PART OF THE PERMANENT MEDICAL RECORD
== END 2022-11-04 12:53 | disposition home or self-care (01) | DRG 291 ==
LOC: HO.ED 13:49 → HO.EDOVER 14:48 → HO.IMC 18:15
PROVIDERS: Internal Medicine; Physician Assistant Medical; Admitting Provider Physician Assistant; Emergency Provider Emergency Medicine; PCP Internal Medicine Medical Oncology; Visit Provider Student in an Organized Health Care Education/Training Program
DX: I11.0 Hypertensive heart disease with heart failure (principal); I50.33 Acute on chronic diastolic (congestive) heart failure; I48.0 Paroxysmal atrial fibrillation; I25.10 Atherosclerotic heart disease of native coronary artery without angina pectoris; E11.9 Type 2 diabetes mellitus without complications; I27.20 Pulmonary hypertension, unspecified; D50.0 Iron deficiency anemia secondary to blood loss (chronic); T45.515A Adverse effect of anticoagulants, initial encounter; Z20.822 Contact with and (suspected) exposure to COVID-19; Z95.1 Presence of aortocoronary bypass graft; Z95.2 Presence of prosthetic heart valve; Z87.891 Personal history of nicotine dependence; Z79.01 Long term (current) use of anticoagulants; Z79.82 Long term (current) use of aspirin; Z79.899 Other long term (current) drug therapy
CPT/HCPCS: 36415; 71046; 80048; 80053; 81001; 82728; 83540; 83735; 83880; 84484; 85025; 85027; 87086; 87635; 93005; 93306; 99285; J1940; Q9957

== ENCOUNTER → 2022-11-01 12:23 | Outpatient (BNV) | payer MEDICARE, SELFPAY | PROVIDERS: Emergency Provider Emergency Medicine; PCP Internal Medicine Medical Oncology; Visit Provider Internal Medicine Cardiovascular Disease | DX: I50.9 Heart failure, unspecified (principal); I48.0 Paroxysmal atrial fibrillation | CPT/HCPCS: 93010; 99223; 99232; 99233 ==

== ENCOUNTER 2022-11-01 14:38 | Outpatient (BNV) | payer MEDICARE, SELFPAY | END 2022-11-02 07:00 | PROVIDERS: Admitting Provider Physician Assistant; Emergency Provider Emergency Medicine; PCP Internal Medicine Medical Oncology; Visit Provider Internal Medicine Cardiovascular Disease | DX: I36.1 Nonrheumatic tricuspid (valve) insufficiency (principal); Z95.2 Presence of prosthetic heart valve | CPT/HCPCS: 93306 ==

== ENCOUNTER → 2022-11-01 14:38 | Outpatient (BNV) | payer MEDICARE, SELFPAY | PROVIDERS: Admitting Provider Physician Assistant; Emergency Provider Emergency Medicine; PCP Internal Medicine Medical Oncology; Visit Provider Physician Assistant | DX: I50.9 Heart failure, unspecified (principal); I48.0 Paroxysmal atrial fibrillation | CPT/HCPCS: 99223; 99232; 99239 ==

== ENCOUNTER 2022-11-23 09:53 | Outpatient (REF) | payer MEDICARE, SELFPAY ==
[2022-11-23 10:35] LABS: Basophils Percent Auto 0.4 % (0-2); Eosinophils Absolute Auto 0.2 X10*3/uL (0.0-0.4); Eosinophils Percent Auto 2.5 % (0-4); Hematocrit 31.4 % (42.0-52.0); Hemoglobin 9.7 g/dl (14.0-18.0); Imm Gran Abs Auto 0.03 X10*3/uL (0.00-0.03); Imm Gran Pct Auto 0.4 % (0.0-0.4); Immature Retic Fraction 27.7 % (2.3-13.4); Lymphocytes Absolute Auto 0.6 X10*3/uL (1.2-4.9); Lymphocytes Percent Auto 7.4 % (20-40); MANUAL DIFF FLAG SCAN; Mean Corpuscular HGB Conc 30.9 g/dl (31.0-36.0); Mean Corpuscular Hemoglobin 26.7 pg (27.0-33.0); Mean Corpuscular Volume 86.5 fL (80.0-98.0); Mean Platelet Volume 8.5 fL (9.4-12.4); Monocytes Absolute Auto 1.2 X10*3/uL (0.1-1.2); Monocytes Percent Auto 16.2 % (2-11); Neutrophils Absolute Auto 5.5 x10*3/uL (2.0-8.3); Neutrophils Percent Auto 73.1 % (45-73); Platelet Count 270 X10*3/uL (160-400); Red Blood Count 3.63 X10*6/uL (4.60-5.80); Retic HGB Equivalent 28.5 pg (30.0-35.0); Reticulocyte Percent 3.2 % (0.5-1.8); Reticulocytes Absolute 0.116 X10*6/uL (0.026-0.095); SCAN SMEAR FLAG 1; White Blood Count 7.6 X10*3/uL (4.8-10.8)
[2022-11-23 11:13] LABS: Alanine Aminotransferase 19 U/L (0-40); Albumin Level 3.9 g/dL (3.5-5.0); Alkaline Phosphatase 55 U/L (39-117); Anion Gap 15 (12-20); Aspartate Amino Transferase 32 U/L (5-37); Bilirubin Total 0.8 mg/dL (0.0-1.0); Blood Urea Nitrogen 31 mg/dL (9-16); Calcium 9.4 mg/dL (8.4-10.2); Carbon Dioxide 20 mmol/L (22-29); Chloride 106 mmol/L (96-108); Estimated Glomerular Filt Rate 45; Glucose Random 111 mg/dL (60-115); Potassium 4.8 mmol/L (3.3-5.1); Sodium 136 mmol/L (135-145); Total Protein 7.7 g/dL (6.5-8.0)
[2022-11-23 11:28] LABS: Ferritin 233 ng/mL (20-250)
[2022-11-23 11:41] LABS: SLIDE REVIEW VERIFIED
== END 2022-11-23 09:54 | disposition home or self-care (01) ==
LOC: HO.LAB 09:53
PROVIDERS: PCP Internal Medicine Medical Oncology; Visit Provider Internal Medicine Medical Oncology
DX: I48.91 Unspecified atrial fibrillation (principal); I50.9 Heart failure, unspecified
CPT/HCPCS: 36415; 80053; 82728; 85025; 85045

== ENCOUNTER 2023-01-17 11:46 | Outpatient (REF) | payer MEDICARE, SELFPAY ==
--- NOTE | ~2023-01-17 | XR_ITS ---
EXAMINATION: XR CHEST CLINICAL INFORMATION: Congestive heart clear to pulmonary hypertension. COMPARISON: Prior chest radiographs, most recently 11/01/2022. TECHNIQUE: PA and lateral views of the chest were obtained. FINDINGS: The heart, great vessels and mediastinum are stable. There has been a prior aortic valvuloplasty. There is mild pulmonary vascular congestion. No overt pulmonary edema is seen. There is a small left pleural effusion, with adjacent left base airspace disease, representing atelectasis versus infiltrate. This is stable in appearance from 11/01/2022. No pneumothorax is seen. There is no acute osseous abnormality. XR/XR chest 2V IMPRESSION: 1. A stable small left pleural effusion is seen, and there is stable mild adjacent left base airspace disease. 2. There is mild pulmonary vascular congestion, without overt pulmonary edema.
== END 2023-01-17 11:47 | disposition home or self-care (01) ==
LOC: HO.XRAY 11:46
PROVIDERS: PCP Internal Medicine Medical Oncology; Visit Provider Internal Medicine
DX: I50.32 Chronic diastolic (congestive) heart failure (principal); I27.20 Pulmonary hypertension, unspecified
CPT/HCPCS: 71046

== ENCOUNTER 2023-01-19 10:08 | Outpatient (REF) | payer MEDICARE, SELFPAY ==
[2023-01-19 10:21] LABS: MANUAL DIFF FLAG NO
[2023-01-19 10:40] LABS: Basophils Percent Auto 0.4 % (0-2); Eosinophils Absolute Auto 0.1 X10*3/uL (0.0-0.4); Hematocrit 32.8 % (42.0-52.0); Hemoglobin 9.8 g/dl (14.0-18.0); Imm Gran Abs Auto 0.02 X10*3/uL (0.00-0.03); Imm Gran Pct Auto 0.3 % (0.0-0.4); Lymphocytes Absolute Auto 0.7 X10*3/uL (1.2-4.9); Lymphocytes Percent Auto 10.1 % (20-40); Mean Corpuscular HGB Conc 29.9 g/dl (31.0-36.0); Mean Corpuscular Hemoglobin 25.8 pg (27.0-33.0); Mean Corpuscular Volume 86.3 fL (80.0-98.0); Mean Platelet Volume 9.2 fL (9.4-12.4); Monocytes Absolute Auto 1.2 X10*3/uL (0.1-1.2); Monocytes Percent Auto 17.4 % (2-11); Neutrophils Percent Auto 69.8 % (45-73); Platelet Count 282 X10*3/uL (160-400); Red Cell Distribution Width 19.4 % (11.0-16.0); White Blood Count 7.1 X10*3/uL (4.8-10.8)
[2023-01-19 11:13] LABS: B Type Natriuretic Peptide 377 pg/mL (<100)
[2023-01-19 11:14] LABS: Alanine Aminotransferase 12 U/L (0-40); Albumin Level 3.8 g/dL (3.5-5.0); Anion Gap 14 (12-20); Aspartate Amino Transferase 22 U/L (5-37); Bilirubin Total 0.7 mg/dL (0.0-1.0); Blood Urea Nitrogen 28 mg/dL (9-16); Calcium 9.8 mg/dL (8.4-10.2); Carbon Dioxide 21 mmol/L (22-29); Chloride 106 mmol/L (96-108); Estimated Glomerular Filt Rate 47; Glucose Fasting 98 mg/dL (60-99); Potassium 5.2 mmol/L (3.3-5.1); Sodium 136 mmol/L (135-145); Total Protein 7.9 g/dL (6.5-8.0); Triglycerides 84 mg/dL (<150)
[2023-01-19 11:15] LABS: Alkaline Phosphatase 49 U/L (39-117); Cholesterol 85 mg/dL (<200); HDL Cholesterol 36 mg/dL (>40); LDL Cholesterol Calculated 33 mg/dL (<100)
== END 2023-01-19 10:09 | disposition home or self-care (01) ==
LOC: HO.LAB 10:08
PROVIDERS: PCP Internal Medicine Medical Oncology; Visit Provider Internal Medicine Medical Oncology
DX: Z00.00 Encounter for general adult medical examination without abnormal findings (principal); I50.9 Heart failure, unspecified; E66.3 Overweight
CPT/HCPCS: 36415; 80053; 80061; 83880; 85025

== ENCOUNTER 2023-02-05 11:21 | Inpatient (IN) | payer MEDICARE, SELFPAY ==
[2023-02-05] VITALS (15 sets, daily range): BP systolic 97–143; BP diastolic 35–74; PULSE 82–124; RESP 16–23; TEMP 36–36.7; O2SAT 94–100; BMI 24.7; BMI 25.7
--- NOTE | ~2023-02-05 | XR_ITS ---
EXAMINATION: XR CHEST CLINICAL INFORMATION: Shortness of breath COMPARISON: Chest radiograph from 01/17/2023 TECHNIQUE: Frontal view of the chest was obtained. FINDINGS: Redemonstration of left basilar opacity increased from prior imaging suggesting small pleural effusion with subjacent atelectasis though underlying airspace disease not excluded. Interstitial prominence. Trachea is midline. Cardiac mediastinal silhouette is not enlarged. Aorta demonstrates atherosclerotic calcifications. Sternotomy wires. Osseous structures are intact. Soft tissues are unremarkable. XR/XR chest 1V IMPRESSION: 1. Redemonstration of left basilar opacity increased from prior imaging suggesting small pleural effusion with subjacent atelectasis though underlying airspace disease not excluded. 2. Interstitial prominence.
--- NOTE | ~2023-02-05 | XR_ITS ---
EXAMINATION: XR HIP, RIGHT CLINICAL INFORMATION: Fall pain COMPARISON: None available. TECHNIQUE: 2 views of the pelvis 2 views of the right hip FINDINGS: No acute visible fracture or dislocation. 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 Degenerative changes of the lumbosacral spine. Joint space alignment are otherwise maintained. Bowel gas is unremarkable. Soft tissues are unremarkable. Prominent atherosclerotic calcifications. Vascular stents are noted in the region of the proximal right superficial femoral artery. XR/XR hip RT w PEL1V IMPRESSION: 1. No acute visible fracture or dislocation. 2. 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 3. Degenerative changes of the lumbosacral spine.
--- NOTE | 2023-02-05 11:23 | ED_ITS ---
HPI - SOB/Dyspnea General Chief Complaint: General Medical Stated Complaint: diff breathing Time Seen by Provider: 02/05/23 12:47 History of Present Illness HPI Narrative: 82 year old male with history of paroxysmal atrial fibrillation on xarelto, htn, hld, HFpEF, CAD s/p CABG, carotid stenosis, s/p bovine valve replacement, and OA presented who presents emergency department for evaluation of shortness of breath, nausea, vomiting and right hip pain. Patient states that he has difficulty with his vision in 2 days prior he was taking out the trash when he fell. He states that he landed on his right hip he believes that he may have lost consciousness for seconds. He states that since the fall he has been having pain in his right hip especially with walking. The patient states that he has chronic shortness of breath but over the past week a shortness of breath is gotten worse. The patient denies fever, he states he has occasional chills. He states that he has had rhinorrhea with occasional cough. He had nausea and vomiting. He states that today he vomited up thick white fluid with possibly flecks of blood in the fluid. He denied dark black stools or bloody stools. Related Data Home Medications Medication Instructions Recorded Confirmed aspirin 81 mg tablet,delayed 81 mg PO DAILY 12/14/21 11/01/22 release (Adult Aspirin Regimen) furosemide 80 mg tablet 80 mg PO DAILY 12/14/21 11/01/22 metoprolol tartrate 25 mg tablet 25 mg PO TID@0800,1200,1600 12/14/21 11/01/22 rivaroxaban 15 mg tablet (Xarelto) 15 mg PO DAILY 12/14/21 11/01/22 albuterol sulfate 90 mcg/actuation 1 puff inhalation Q4H PRN 11/01/22 11/01/22 aerosol inhaler Shortness Of Breath calcium carbonate 500 mg calcium 500 mg PO DAILY 11/01/22 11/01/22 (1,250 mg) tablet ezetimibe 10 mg tablet 10 mg PO BEDTIME 11/01/22 11/01/22 omega-3 fatty acids 1,000 mg PO DAILY 11/01/22 11/01/22 potassium chloride 10 mEq 20 meq PO DAILY 11/01/22 11/01/22 tablet,extended release (Klor-Con) rosuvastatin 40 mg tablet 20 mg PO BEDTIME 11/01/22 11/01/22 Previous Rx's Medication Instructions Recorded ferrous sulfate 324 mg (65 mg 324 mg PO BID #60 tabs 11/04/22 iron) tablet,delayed release spironolactone 25 mg tablet 25 mg PO BID@0900,1800 #60 tabs 11/04/22 Allergies Allergy/AdvReac Type Severity Reaction Status Date / Time Llmncke-BKN-VmN Reductase AdvReac Mild LEG Verified 03/01/22 10:31 Inhibitor PAIN/NUMBNESS/RESTLESSLESS [KCHJKQA-RMF-XRT REDUCTASE INHIBITOR] Review of Systems 2 Review of Systems: Yes all other systems are reviewed and are negative [facility] Past Medical History [facility] Narrative: Social history: He lives with his . He is a former smoker and stop smoking 40 years prior but he has a 15 pack-year history of smoking. He denies alcohol use. He denies drug use. Medical History CHF (congestive heart failure) PAF (paroxysmal atrial fibrillation) Osteoarthritis of right knee Hemarthrosis, right knee Coronary artery disease Atrial fibrillation Surgical History Heart valve replaced H/O cardiac catheterization H/O coronary artery bypass surgery Family History Family History Father No problems noted. Mother No problems noted. Social History Social History Alcohol intake: never Patient Tobacco Use Status: Former Tobacco user Smoked in Last 30 Days: No Use of substances other than those prescribed or required for medical reasons: No Advance Directives: No Advance Directives Information Provided: No service: No Physical Exam 2 Vital Signs: Vital Signs: Last Vital Signs Temp 97.8 F 02/05/23 13:03 Pulse 84 02/05/23 13:03 Resp 23 H 02/05/23 13:03 BP 135/43 L 02/05/23 13:03 Pulse Ox 98 02/05/23 13:03 O2 Del Method Room Air 02/05/23 13:03 BMI result Body Mass Index 24.7 Vital signs revealed an elevated respiratory of 23 otherwise unremarkable pain Exam: General: Awake, alert in no distress Head: Normocephalic, atraumatic EENT: PERRL, Lids normal, sclera normal, conjunctiva normal, nose normal , ears normal, throat without erythema or exudates Neck: Supple, no adenopathy, no trachea midline or C-spine tenderness Lung: breath sounds symmetric, no wheezing, rales or rhonchi Chest: symmetric movement, nontender Heart: regular rate and rhythm, normal S1, S2 , 3/6 systolic murmur best heard at the left lower sternal border Abdomen: soft, non-tender, nondistended, normal bowel sounds Rectal: Brown stool which was Hemoccult negative Back: no vertebral tenderness, no CVAT Extremities: Patient has a large right thigh hematoma Neuro: Awake, alert, oriented, normal speech, cranial nerves intact, moves all extremities symmetrically Psych: Pleasant, cooperative Course Course Course Narrative: This is a rapid medical exam. deferred additional HPI, ROS, PE to primary provider. 82 yo male with history of afib on AC therapy, CHF, AVR here with complaints of SOB x 1 week. Also fall a week ago landing on right hip, no head strike but patient reports was secondary to dizzy/syncopal episode. Will obtain labs, EKG, CXR, hip x-ray, covid test, orthos VSS Medical Decision Making Medical Decision Making MDM Narrative: 82 year old male with history of paroxysmal atrial fibrillation on xarelto, htn, hld, HFpEF, CAD s/p CABG, carotid stenosis, s/p bovine valve replacement, and OA presented who presents emergency department for evaluation of shortness of breath x1 week, worse x2 days, nausea and vomiting x1 day and right hip pain x2 days after falling. Patient's vital signs did reveal an elevated respiratory rate. Physical examination did reveal large right thigh hematoma, patient is on Xarelto and he states that his last dose was yesterday afternoon he did not take a dose today. Following evaluation was ordered: BNP, CBC, BMP, liver panel, PT/INR, COVID-19, magnesium, troponin, chest x-ray, right hip x-ray with pelvis 13:52 My interpretation patient's laboratory evaluation is as follows: [place] [address], anemia with an H&H of 6.7 and 22.3-below the patient's baseline of 9.8 and 32.8 on 01/19/2023. PT and INR elevated 25.82.5-this is most likely secondary to Xarelto therapy. Potassium is elevated at 6.2 with no hemolysis. Patient's BUN and creatinine are elevated 41 and 1.93 above his baseline of 28 and 1.43 on 01/19/2023. COVID-19 was negative. Patient's troponin was elevated at 41, repeat troponin due at 14:40 hours. Right hip and pelvis x-ray revealed no acute fracture, patient does have DJD bilaterally. Chest x-ray revealed left basilar opacity and interstitial prominence on the radiology reading The patient elevated potassium was treated with Lokalema a 10 mg orally Patient's anemia secondary to blood loss from his right thigh hematoma complicated by Xarelto therapy. The patient plastic use Xarelto 24 hours prior therefore I do not think that he needs any reversal agents at this time. Patient was ordered to get 1 unit of packed red blood cells transfused slowly. 14:07 I will discuss admission over tiger text with the covering hospitalist, Dr. Knox and the patient will be admitted to the hospital service for further management. Differential Diagnosis Differential Diagnoses: The differential diagnosis associated with the presentation includes Differential diagnosis includes was not limited to GI bleed, right hip fracture, right hip hematoma, electrolyte abnormality, anemia, myocardial infarction, myocardial ischemia Admission/Observation Consideration of admission/observation: Escalation of care including admission/observation considered Lab Data 02/05/23 11:40 02/05/23 11:40 Labs: Lab Results 02/05/23 02/05/23 02/05/23 Range/Units 11:40 11:41 12:41 WBC 14.4 H (4.8-10.8) X10*3/uL RBC 2.58 L D (4.60-5.80) X10*6/uL Hgb 6.7 L* D (14.0-18.0) g/dl Hct 22.3 L D (42.0-52.0) % MCV 86.4 (80.0-98.0) fL MCH 26.0 L (27.0-33.0) pg MCHC 30.0 L (31.0-36.0) g/dl RDW 19.9 H (11.0-16.0) % Plt Count 291 (160-400) X10*3/uL MPV 9.6 (9.4-12.4) fL Immature Gran % (Auto) 0.5 H (0.0-0.4) % Neut % (Auto) 80.5 H (45-73) % Lymph % (Auto) 4.0 L (20-40) % [place] % (Auto) 14.7 H (2-11) % Eos % (Auto) 0.1 (0-4) % Baso % (Auto) 0.2 (0-2) % Lymph # (Auto) 0.6 L (1.2-4.9) X10*3/uL [place] # (Auto) 2.1 H (0.1-1.2) X10*3/uL Eos # (Auto) 0.0 (0.0-0.4) X10*3/uL Baso # (Auto) 0.0 (0.0-0.2) X10*3/uL Abs Immat Gran (auto) 0.07 H (0.00-0.03) X10*3/uL Absolute Neuts (auto) 11.6 H (2.0-8.3) x10*3/uL Absolute Nucleated RBC 0.000 (0.0-0.012) X10*3/uL Nucleated RBC % (auto) 0.0 (0.0-0.2) /100WBC Smear Tech's Comments VERIFIED PT 25.8 H (11.1-13.3) SEC INR 2.1 H (0.9-1.1) Sodium 136 (135-145) mmol/L Potassium 6.2 H* (3.3-5.1) mmol/L Chloride 106 (96-108) mmol/L Carbon Dioxide 16 L (22-29) mmol/L Anion Gap 20 (12-20) BUN 41 H (9-16) mg/dL Creatinine 1.93 H (0.5-1.4) mg/dL Estim Creat Clear Calc 32.9 Estimated GFR 34 Random Glucose 186 H (60-115) mg/dL Calcium 9.5 (8.4-10.2) mg/dL Magnesium 2.3 (1.6-2.6) mg/dL Total Bilirubin 0.8 (0.0-1.0) mg/dL Direct Bilirubin 0.4 (0.0-0.5) mg/dL AST 28 (5-37) U/L ALT 16 (0-40) U/L Alkaline Phosphatase 53 (39-117) U/L Troponin I High Sens 41.0 H (<3.5-35.0) ng/L B-Natriuretic Peptide 478 H (<100) pg/mL Total Protein 7.8 (6.5-8.0) g/dL Albumin 3.8 (3.5-5.0) g/dL COVID-19 (BETTINA) Negative (Negative) COVID-19 Clin Com See Note Blood Type A Positive Antibody Screen NEGATIVE Independent Interpretation I performed an independent interpretation of an: Plain X-Ray Interpretation: My independent interpretation of the patient's chest x-ray is as follows: Cardiomegaly with loss of the left diaphragm question pleural effusion My independent interpretation the patient's 12 EKG done at 11:30 hours is as follows: Normal sinus rhythm rate of 87, normal IA interval, prolonged QRS of 102 milliseconds, prolonged QTC of 474 milliseconds, no ST segment elevation, no ST segment depression, no significant T-wave abnormalities, no PACs, no PVCs Radiology Impression Discussion of test interpretation with radiology: I have reviewed the radiologist's reading. Radiologist Impression: XR chest 1V IMPRESSION: 1. Redemonstration of left basilar opacity increased from prior imaging suggesting small pleural effusion with subjacent atelectasis though underlying airspace disease not excluded. 2. Interstitial prominence. Dictated By: Vito Shen MD XR hip RT w PEL1V IMPRESSION: 1. No acute visible fracture or dislocation. 2. 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 3. Degenerative changes of the lumbosacral spine. Dictated By: Vito Shen MD Critical Care Time Critical Care Time Critical Care Time: Yes Total Critical Care Time: 35 Attestation: Critical Care: The patient was critically ill with a high probability of imminent or life threatening deterioration. I spent greater than 30 minutes of discontinuous time evaluating the patient,delivering critical care at the bedside, discussing and evaluating pertinent data with consultants. Critical care time does not include time spent performing separately billable procedures or teaching. Total time spent performing critical care was 35 minutes. Discharge Plan Discharge Patient Disposition: Admitted As Inpatient Prescriptions: No Action potassium chloride [Klor-Con 10] 10 mEq Tablet Extended Release 20 meq PO DAILY calcium carbonate 500 mg calcium (1,250 mg) Tablet 500 mg PO DAILY albuterol sulfate 90 mcg/actuation HFA aerosol inhaler 1 puff inhalation Q4H PRN (Reason: Shortness Of Breath) ezetimibe 10 mg Tablet 10 mg PO BEDTIME omega-3 fatty acids Capsule 1,000 mg PO DAILY rosuvastatin 40 mg Tablet 20 mg PO BEDTIME spironolactone 25 mg Tablet 25 mg PO BID@0900,1800 Qty: 60 0RF Protocol: Hold for SBP< HOLD for SBP < : 90 ferrous sulfate 324 mg (65 mg iron) tablet,delayed release (DR/EC) 324 mg PO BID Qty: 60 0RF Xarelto 15 mg tablet 15 mg PO DAILY furosemide 80 mg tablet 80 mg PO DAILY metoprolol tartrate 25 mg tablet 25 mg PO TID@0800,1200,1600 aspirin [Adult Aspirin Regimen] 81 mg tablet,delayed release (DR/EC) 81 mg PO DAILY
--- NOTE | 2023-02-05 11:24 | ECG_ITS ---
Test Reason : diff breathing Blood Pressure : / mmHG Vent. Rate : 087 BPM Atrial Rate : 087 BPM P-R Int : 188 ms QRS Dur : 102 ms QT Int : 394 ms P-R-T Axes : 062 -66 077 degrees QTc Int : 474 ms Normal sinus rhythm Left anterior fascicular block Incomplete right bundle branch block Nonspecific T wave abnormality Prolonged QT Abnormal ECG When compared with ECG of 01-NOV-2022 11:57, Heart rate has increased Referred By: Karine Velarde Electronically Signed By:VISHAL OWENS MD
[2023-02-05 11:54] LABS: Basophils Percent Auto 0.2 % (0-2); Eosinophils Percent Auto 0.1 % (0-4); Hematocrit 22.3 % (42.0-52.0); Imm Gran Abs Auto 0.07 X10*3/uL (0.00-0.03); Imm Gran Pct Auto 0.5 % (0.0-0.4); Lymphocytes Absolute Auto 0.6 X10*3/uL (1.2-4.9); MANUAL DIFF FLAG SCAN; Mean Corpuscular Volume 86.4 fL (80.0-98.0); Mean Platelet Volume 9.6 fL (9.4-12.4); Monocytes Absolute Auto 2.1 X10*3/uL (0.1-1.2); Monocytes Percent Auto 14.7 % (2-11); Neutrophils Absolute Auto 11.6 x10*3/uL (2.0-8.3); Neutrophils Percent Auto 80.5 % (45-73); Platelet Count 291 X10*3/uL (160-400); Red Blood Count 2.58 X10*6/uL (4.60-5.80); Red Cell Distribution Width 19.9 % (11.0-16.0); SCAN SMEAR FLAG 1; White Blood Count 14.4 X10*3/uL (4.8-10.8)
[2023-02-05 11:55] LABS: INTERNATIONAL NORM RATIO 2.1 (0.9-1.1); Prothrombin Time 25.8 SEC (11.1-13.3)
[2023-02-05 12:00] LABS: Hemoglobin 6.7 g/dl (14.0-18.0)
[2023-02-05 12:06] LABS: COVID-19 Test Negative (Negative); IDNOW Serial# 08D9AD1C
[2023-02-05 12:11] LABS: B Type Natriuretic Peptide 478 pg/mL (<100)
[2023-02-05 12:13] LABS: Alanine Aminotransferase 16 U/L (0-40); Albumin Level 3.8 g/dL (3.5-5.0); Alkaline Phosphatase 53 U/L (39-117); Anion Gap 20 (12-20); Aspartate Amino Transferase 28 U/L (5-37); Bilirubin Direct 0.4 mg/dL (0.0-0.5); Bilirubin Total 0.8 mg/dL (0.0-1.0); Blood Urea Nitrogen 41 mg/dL (9-16); Calcium 9.5 mg/dL (8.4-10.2); Carbon Dioxide 16 mmol/L (22-29); Chloride 106 mmol/L (96-108); Creatinine Clr Calc Pharmacy 32.9; Estimated Glomerular Filt Rate 34; Glucose Random 186 mg/dL (60-115); Magnesium 2.3 mg/dL (1.6-2.6); Potassium 6.2 mmol/L (3.3-5.1); Sodium 136 mmol/L (135-145); Total Protein 7.8 g/dL (6.5-8.0)
[2023-02-05 12:18] LABS: SLIDE REVIEW VERIFIED
--- NOTE | 2023-02-05 12:38 | PC.NURSE ---
tech bedside obtaining orthostatic vitals as well as type & screen.
--- NOTE | 2023-02-05 13:00 | PC.NURSE ---
a&ox3, vss and up to date, nsr on the air sampling and monitoring. pt has hx of afib - compliant w/ xarelto. pt comes in today d/t increased SOB for 1 week. pt states that he fell 1 week ago in the driveway. pt verbalizes that he was dizzy prior to fall. pt c/o 09/04 right hip pain that causes difficulty while ambulating. pt displays w/ SOB/WOB when having conversation. pt displays w/ pursed lip breathing after responding to questions/changing positions. crackles noted upon auscultation throughout. 3+ pitting edema noted throughout LE bilaterally. 20gIV placed in right forearm. 20gIV placed in left AC. pt currently resting in no apparent distress. call tran placed within reach.
--- NOTE | 2023-02-05 13:22 | PC.NURSE ---
rectal exam performed by ED provider. pt tolerated well.
[2023-02-05] MEDS: Sodium Zirconium Cyclosilicate 10 GM POWD.PACK PO (13:55)
--- NOTE | 2023-02-05 14:13 | PC.NURSE ---
tech going to blood bank to obtain blood.
--- NOTE | 2023-02-05 14:35 | PC.NURSE ---
blood transfusion currently running at this time. vital signs remaining stable at this time. pt currently tolerating transfusion well w/o any issues at this time.
--- NOTE | 2023-02-05 14:53 | PC.NURSE ---
pt's (pat) called and notified on status update of pt. pt/pt's notified that he will be staying/admitted into the hospital.
--- NOTE | 2023-02-05 15:00 | PHA.MEDREC ---
Pharmacy Consult ? Medication Reconciliation Pharmacy has completed the medication reconciliation. spoke with over the phone to confirm medications. She reports that the Ezetimibe and rosuvastatin are delivered which is why they were not in claim history. She also reports that the statin allergy is from simvastatin.
[2023-02-05 15:17] LABS: Troponin-I High Sensitivity 35.9 ng/L (<3.5-35.0)
[2023-02-05 15:38] LABS: Appearance Urine Clear; Color Urine Yellow; Glucose Urine UA Negative (Negative); Leukocyte Esterase Urine Negative (Negative); Nitrite Urine Negative (Negative); Specific Gravity - Urine 1.015 (1.005-1.025); Urine Blood Negative (Negative); Urine Ketones Negative (Negative); Urine Protein Negative (Neg-Trace)
--- NOTE | 2023-02-05 16:04 | PC.NURSE ---
pt speaking w/ admitting provider at this time. pt remains in no apparent distress. respirations even and unlabored. call tran placed within reach.
--- NOTE | 2023-02-05 16:20 | P.HPHOSP_ITS ---
History of Present Illness Date of Service: 02/05/23 Chief Complaint: Shortness of breath 82-year-old gentleman with past medical history significant for paroxysmal atrial fibrillation on Xarelto, hypertension, hyperlipidemia, heart failure with preserved EF, coronary artery disease status post CABG, carotid stenosis, status post bovine valve replacement for aortic stenosis and osteoarthritis presented to emergency room due to symptoms of shortness of breath that started 1 week ago but worsened in last 2 days without associated chest pain or palpitation patient also complained of nausea vomiting of 1 day duration, as per patient he was taking down trash 2 days ago and fell down with loss of consciousness for few seconds, likely fall due to poor vision, he fell on his right hip and since and has been having difficulty in ambulation due to significant right thigh pain, therefore patient presented to emergency room he denied associated symptoms of fever chills, no sick contacts, this morning patient vomited x2 he denied associated abdominal pain, no bloody stools, in the emergency room patient noted to have hematocrit of 22.3, with recent hematocrit of 32.8 and hemoglobin of 9.8 with a hemoglobin of 6.7 elevated WBC count of 14.4, creatinine 1.93 elevated potassium 6.2 COVID test negative, chest x-ray showed the left basilar opacity increased from prior imaging suggesting small pleural effusion with subjacent atelectasis, do underlying airspace disease not excluded, x-ray of right hip showed no acute visible fracture,it showed degenerative arthropathy of bilateral femoral acetabular joints, on examination patient noted to have right thigh hematoma, patient is now being admitted to [facility] due to acute blood loss anemia, acute kidney injury with hyperkalemia, and close clinical monitoring. Review of Systems 2 Review of Systems: General: No fevers, malaise, unintentional weight loss HEENT: No blurred vision, diplopia. No sore throat, nasal congestion, rhinorrhea, sinus pain, ear pain Cardiovascular: No chest pain, palpitations. Respiratory: shortness of breath x2 weeks, occasional cough GI: No abdominal pain, positive nausea and vomiting, : No dysuria, no hematuria, MSK: Right leg pain Neuro: No headaches, weakness, paresthesias Skin: No rashes or lesions [facility] Medical History CHF (congestive heart failure) PAF (paroxysmal atrial fibrillation) Osteoarthritis of right knee Hemarthrosis, right knee Coronary artery disease Atrial fibrillation Family History Father No problems noted. Mother No problems noted. Surgical History Heart valve replaced H/O cardiac catheterization H/O coronary artery bypass surgery Social History Alcohol intake: never Patient Tobacco Use Status: Former Tobacco user Smoked in Last 30 Days: No Use of substances other than those prescribed or required for medical reasons: No Advance Directives: No Advance Directives Information Provided: No service: No Meds Allergies Allergy/AdvReac Type Severity Reaction Status Date / Time Mevsomh-IPJ-IxY Reductase AdvReac Mild LEG Verified 03/01/22 10:31 Inhibitor PAIN/NUMBNESS/RESTLESSLESS [[id number] REDUCTASE INHIBITOR] Active Medications: Current Medications Albuterol Sulfate (Albuterol Sulfate 90 Mcg 8 Gm Inhaler) 1 puff INHALE Q4H PRN PRN Reason: Shortness Of Breath Aspirin (Aspirin Enteric Coated 81 Mg Tablet.) 81 mg PO DAILY [facility] Ezetimibe (Ezetimibe 10 Mg Tablet) 10 mg PO BEDTIME [facility] Metoprolol Tartrate (Metoprolol Tartrate 25 Mg Tablet) 25 mg PO TID@0800,1200,1600 [facility]; Protocol Home Medications Medication Instructions Recorded Confirmed Last Taken Type aspirin 81 mg tablet,delayed 81 mg PO DAILY 12/14/21 02/05/23 Unknown History release (Adult Aspirin Regimen) furosemide 80 mg tablet 80 mg PO QAM 12/14/21 02/05/23 Unknown History metoprolol tartrate 25 mg tablet 25 mg PO TID@0800,1200,1600 12/14/21 02/05/23 Unknown History rivaroxaban 15 mg tablet (Xarelto) 15 mg PO DAILY 12/14/21 02/05/23 Unknown History albuterol sulfate 90 mcg/actuation 1 puff inhalation Q4H PRN 11/01/22 02/05/23 Unknown History aerosol inhaler Shortness Of Breath ezetimibe 10 mg tablet 10 mg PO BEDTIME 11/01/22 02/05/23 Unknown History omega-3 fatty acids 1,200 mg PO DAILY 11/01/22 02/05/23 Unknown History rosuvastatin 40 mg tablet 40 mg PO BEDTIME 11/01/22 02/05/23 Unknown History calcium carbonate 600 mg-vitamin 2 cap PO DAILY 02/05/23 02/05/23 Unknown History D3 12.5 mcg (500 unit) capsule (Calcium 600 with Vitamin D3) potassium chloride 20 mEq 40 meq PO QAM 02/05/23 02/05/23 Unknown History tablet,extended release(part/cryst) (Klor-Con M) spironolactone 25 mg tablet 25 mg PO DAILY@0900 02/05/23 02/05/23 Unknown History vitamins A,C,E-jysa-qlvwxq 2,148 1 tab PO BID 02/05/23 02/05/23 Unknown History mcg-113 mg-45 mg-17.4 mg tablet (PreserVision AREDS) Physical Exam 2 Vital Signs and Narrative: Vital Signs: Last Vital Signs Temp 97.9 F 02/05/23 14:44 Pulse 86 02/05/23 15:26 Resp 16 02/05/23 15:26 BP 112/52 L 02/05/23 15:26 Pulse Ox 95 02/05/23 15:26 O2 Del Method Room Air 02/05/23 15:26 BMI result Body Mass Index 24.7 Const: Other: Constitutional : A wake, alert, inter active, not in dis tress Neck : Luz l inspection, no J VD Cardiovascular : RRR, Respiratory : good bilateral air entry, no whe veto, no rhonchi Ga strointestinal: s oft, Normal bowel sounds, Non tender Right thigh bigge r than left due to right thigh hemat juliann Limited examin ation right hip du e to pain Skin : W arm, Dry Neurologi tony : Alert & orie nted x3, No focal deficit Results Labs 02/05/23 11:40 02/05/23 11:40 Labs: Laboratory Results - last 24 hr 02/05/23 02/05/23 02/05/23 11:40 12:41 15:26 MCV 86.4 MCH 26.0 L MCHC 30.0 L RDW 19.9 H Plt Count 291 MPV 9.6 Immature Gran % (Auto) 0.5 H Neut % (Auto) 80.5 H Lymph % (Auto) 4.0 L [place] % (Auto) 14.7 H Eos % (Auto) 0.1 Baso % (Auto) 0.2 Lymph # (Auto) 0.6 L [place] # (Auto) 2.1 H Eos # (Auto) 0.0 Baso # (Auto) 0.0 Abs Immat Gran (auto) 0.07 H Absolute Neuts (auto) 11.6 H Absolute Nucleated RBC 0.000 Nucleated RBC % (auto) 0.0 Smear Tech's Comments VERIFIED PT 25.8 H INR 2.1 H Anion Gap 20 Estim Creat Clear Calc 32.9 Estimated GFR 34 Random Glucose 186 H Calcium 9.5 Magnesium 2.3 Total Bilirubin 0.8 Direct Bilirubin 0.4 AST 28 ALT 16 Alkaline Phosphatase 53 B-Natriuretic Peptide 478 H Total Protein 7.8 Albumin 3.8 Urine Color Yellow Urine Appearance Clear Urine pH 5.0 Ur Specific [place] 1.015 Urine Protein Negative Urine Glucose (UA) Negative Urine Ketones Negative Urine Blood Negative Urine Nitrite Negative Ur Leukocyte Esterase Negative COVID-19 (BETTINA) Negative COVID-19 Clin Com See Note Blood Type A Positive Antibody Screen NEGATIVE Crossmatch See Detail Imaging Radiologist's Impressions: Impressions Chest X-Ray 02/05/23 12:10 IMPRESSION: 1. Redemonstration of left basilar opacity increased from prior imaging suggesting small pleural effusion with subjacent atelectasis though underlying airspace disease not excluded. 2. Interstitial prominence. Hip/Pelvis X-Ray 02/05/23 12:10 IMPRESSION: 1. No acute visible fracture or dislocation. 2. 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 3. Degenerative changes of the lumbosacral spine. Assessment and Plan (1) Acute hyperkalemia: Status: Acute (2) Hematoma of right thigh: Qualifiers: Encounter type: initial encounter Qualified Code(s): S70.11XA - Contusion of right thigh, initial encounter Status: Acute (3) Acute anemia: Status: Acute Plan 82 year old male with history of paroxysmal atrial fibrillation on xarelto, htn, hld, HFpEF, CAD s/p CABG, carotid stenosis, s/p bovine valve replacement, and OA admitted for Shortness of breath likely related to acute blood loss anemia, as well as acute kidney injury, hyperkalemia. # Acute blood loss anemia due to right thigh hematoma Will transfuse 1 unit of packed RBC follow hematocrit closely Hold Xarelto #Acute kidney injury likely due to dehydration with diuretic use will hold Lasix and Aldactone, follow BMP # Hyperkalemia likely due to acute kidney injury will follow BMP received 10 mg of Lokelma, hold potassium supplement and Aldactone #HTN -continue metoprolol. Hold p.o. Lasix and aldactone # paroxysmal atrial fibrillation -now in normal sinus rhythm , rate controlled -hold Xarelto, metoprolol for rate control # coronary artery disease -no anginal chest pain, EKG without any evidence of acute ischemia -continue aspirin, metoprolol, statin # aortic valve replacement on Xarelto, hold Xarelto today follow H&H if hematocrit improved will resume Xarelto # history of chronic CHF with preserved EF no acute exacerbation, recently admitted to [facility] in October 2022 with acute CHF exacerbation and was started on spironolactone b.i.d. 25 mg DVT prophylaxis-compression boots from tomorrow inr 2.1 today due to right thigh hematoma Full code Patient requires inpatient stay at least 2 midnights for management of acute blood loss anemia requiring blood transfusion as well as acute kidney injury and hyperkalemia Quality Stroke Does the patient have a stroke diagnosis?: No VTE Prior VTE?: No VTE Risk Level:: Medical - moderate - high VTE Device Contraindication: N/A - Device Ordered VTE Drug Contraindication: Treatment Not Indicated
[2023-02-05] MEDS: 0.9 % Sodium Chloride 1,000 ML 80 ML IVCONT (18:25)
--- NOTE | 2023-02-05 20:51 | PC.NURSE ---
report given to RN on [facility] - will transport pt.
[2023-02-05 22:04] LABS: Basophils Percent Auto 0.2 % (0-2); Eosinophils Percent Auto 0.1 % (0-4); Hemoglobin 7.4 g/dl (14.0-18.0); Imm Gran Abs Auto 0.08 X10*3/uL (0.00-0.03); Imm Gran Pct Auto 0.5 % (0.0-0.4); Lymphocytes Percent Auto 6.5 % (20-40); MANUAL DIFF FLAG SCAN; Mean Corpuscular HGB Conc 30.8 g/dl (31.0-36.0); Mean Corpuscular Hemoglobin 26.6 pg (27.0-33.0); Mean Corpuscular Volume 86.3 fL (80.0-98.0); Mean Platelet Volume 9.2 fL (9.4-12.4); Monocytes Absolute Auto 2.9 X10*3/uL (0.1-1.2); Monocytes Percent Auto 19.5 % (2-11); NRBC Pct Auto 0.1 /100WBC (0.0-0.2); Neutrophils Absolute Auto 10.9 x10*3/uL (2.0-8.3); Neutrophils Percent Auto 73.2 % (45-73); Platelet Count 250 X10*3/uL (160-400); Red Blood Count 2.78 X10*6/uL (4.60-5.80); Red Cell Distribution Width 18.5 % (11.0-16.0); SCAN SMEAR FLAG 1; White Blood Count 14.9 X10*3/uL (4.8-10.8)
[2023-02-05] MEDS: Ezetimibe 10 MG TABLET PO (22:16)
[2023-02-05 22:18] LABS: Anion Gap 20 (12-20); Blood Urea Nitrogen 38 mg/dL (9-16); Calcium 9.3 mg/dL (8.4-10.2); Carbon Dioxide 17 mmol/L (22-29); Chloride 107 mmol/L (96-108); Creatinine Clr Calc Pharmacy 37.1; Estimated Glomerular Filt Rate 39; Glucose Random 147 mg/dL (60-115); Potassium 4.8 mmol/L (3.3-5.1); Sodium 139 mmol/L (135-145)
[2023-02-05 22:22] LABS: SLIDE REVIEW VERIFIED
[2023-02-06] VITALS (11 sets, daily range): BP systolic 114–142; BP diastolic 54–62; PULSE 78–100; RESP 18–20; TEMP 35.9–36.7; O2SAT 94–98
[2023-02-06 06:30] LABS: Anion Gap 13 (12-20); Blood Urea Nitrogen 34 mg/dL (9-16); Calcium 8.6 mg/dL (8.4-10.2); Carbon Dioxide 19 mmol/L (22-29); Chloride 108 mmol/L (96-108); Creatinine Clr Calc Pharmacy 45.4; Estimated Glomerular Filt Rate 49; Glucose Random 132 mg/dL (60-115); Potassium 4.5 mmol/L (3.3-5.1); Sodium 135 mmol/L (135-145)
[2023-02-06 06:34] LABS: Mean Corpuscular HGB Conc 31.6 g/dl (31.0-36.0); Mean Corpuscular Hemoglobin 27.2 pg (27.0-33.0); Mean Platelet Volume 9.5 fL (9.4-12.4); NRBC Pct Auto 0.2 /100WBC (0.0-0.2); Platelet Count 213 X10*3/uL (160-400); Red Blood Count 2.43 X10*6/uL (4.60-5.80); Red Cell Distribution Width 18.6 % (11.0-16.0); White Blood Count 9.3 X10*3/uL (4.8-10.8)
--- NOTE | 2023-02-06 06:35 | PC.NURSE ---
Assumed care of patient at midnight. VSS. 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 Staff ensuring to announce presence on entering room. See shift assessment for full details. Right thigh hematoma is soft to palpation, remains unchanged since assuming care. Pt denies pain at rest and to palpation. High falls risk measures in place.
[2023-02-06 06:50] LABS: Hematocrit 20.9 % (42.0-52.0); Hemoglobin 6.6 g/dl (14.0-18.0)
--- NOTE | 2023-02-06 06:58 | PC.NURSE ---
Critical H+H back at 06:50. Dr. Driscoll notified, states plans to transfuse. Pt assisted to void in urinal, asymptomatic. Handoff report given to oncoming RN.
[2023-02-06] MEDS: Metoprolol Tartrate 25 MG TABLET PO ×3 (08:55→16:58)
[2023-02-06] MEDS: Calcium + Vitamin D 250 MG TABLET 500 MG PO (08:55)
[2023-02-06] MEDS: Multivitamin TABLET 1 TAB PO (08:55)
--- NOTE | 2023-02-06 12:45 | HO.PM.IMPN ---
Subjective Subjective Date of Service: 02/06/23 Interval History: Feeling better and sitting up in bed eating breakfast complaining of discomfort right thigh, but not worse than before denies shortness of breath, no lightheadedness, no dizziness, no chest pain , no other acute issues overnight. Review of Systems All other system reviewed and negative. Physical Exam Vital Signs: Vital Signs: Last Vital Signs Temp 97.9 F 02/06/23 11:57 Pulse 87 02/06/23 11:57 Resp 18 02/06/23 11:57 BP 119/62 02/06/23 11:57 Pulse Ox 98 02/06/23 11:57 O2 Del Method Room Air 02/06/23 11:57 BMI result Body Mass Index 25.7 Const: Other: Constitutional : Awake, alert, interactive, not in distress Moist mucosa Neck : Normal inspection, no JVD Cardiovascular : RRR, Respiratory : good bilateral air entry, no wheeze, no rhonchi Gastrointestinal: soft, Normal bowel sounds, Non tender Right thigh bigger than left due to right lat.thigh hematoma Skin : Warm, Dry Neurological : Alert & oriented x3, No focal deficit Psych appropriate affect Objective Data Active Medications Albuterol Sulfate (Albuterol Sulfate 90 Mcg 8 Gm Inhaler) 1 puff INHALE RQ4H PRN PRN Reason: Shortness Of Breath Calcium Carbonate/Cholecalciferol (Calcium + Vitamin D 250 Mg Tablet) 500 mg PO DAILY [facility] Last Admin: 02/06/23 08:55 Dose: 500 mg Documented By: DHIRAJ Ezetimibe (Ezetimibe 10 Mg Tablet) 10 mg PO BEDTIME [facility] Last Admin: 02/05/23 22:16 Dose: 10 mg Documented By: CB Metoprolol Tartrate (Metoprolol Tartrate 25 Mg Tablet) 25 mg PO TID@0800,1200,1600 [facility]; Protocol Last Admin: 02/06/23 08:55 Dose: 25 mg Documented By: DHIRAJ Multivitamins/Vitamin C (Multivitamin Tablet) 1 tab PO DAILY [facility] Last Admin: 02/06/23 08:55 Dose: 1 tab Documented By: DHIRAJ Non-Formulary Medication (Rosuvastatin) 40 mg PO BEDTIME [facility] Labs 02/06/23 05:48 02/06/23 05:48 Labs: Laboratory Results - last 24 hr 02/05/23 02/05/23 02/05/23 12:41 15:26 21:58 MCV 86.3 MCH 26.6 L MCHC 30.8 L RDW 18.5 H Plt Count 250 MPV 9.2 L Immature Gran % (Auto) 0.5 H Neut % (Auto) 73.2 H Lymph % (Auto) 6.5 L [place] % (Auto) 19.5 H Eos % (Auto) 0.1 Baso % (Auto) 0.2 Lymph # (Auto) 1.0 L [place] # (Auto) 2.9 H Eos # (Auto) 0.0 Baso # (Auto) 0.0 Abs Immat Gran (auto) 0.08 H Absolute Neuts (auto) 10.9 H Absolute Nucleated RBC 0.020 H Nucleated RBC % (auto) 0.1 Smear Tech's Comments VERIFIED Anion Gap 20 Estim Creat Clear Calc 37.1 Estimated GFR 39 Random Glucose 147 H Calcium 9.3 Urine Color Yellow Urine Appearance Clear Urine pH 5.0 Ur Specific [place] 1.015 Urine Protein Negative Urine Glucose (UA) Negative Urine Ketones Negative Urine Blood Negative Urine Nitrite Negative Ur Leukocyte Esterase Negative Blood Type A Positive Antibody Screen NEGATIVE Crossmatch See Detail 02/06/23 05:48 MCV 86.0 MCH 27.2 MCHC 31.6 RDW 18.6 H Plt Count 213 MPV 9.5 Immature Gran % (Auto) Neut % (Auto) Lymph % (Auto) [place] % (Auto) Eos % (Auto) Baso % (Auto) Lymph # (Auto) [place] # (Auto) Eos # (Auto) Baso # (Auto) Abs Immat Gran (auto) Absolute Neuts (auto) Absolute Nucleated RBC 0.020 H Nucleated RBC % (auto) 0.2 Smear Tech's Comments Anion Gap 13 Estim Creat Clear Calc 45.4 Estimated GFR 49 Random Glucose 132 H Calcium 8.6 D Urine Color Urine Appearance Urine pH Ur Specific [place] Urine Protein Urine Glucose (UA) Urine Ketones Urine Blood Urine Nitrite Ur Leukocyte Esterase Blood Type Antibody Screen Crossmatch Assessment and Plan (1) Acute hyperkalemia: Status: Acute (2) Hematoma of right thigh: Status: Acute (3) Acute anemia: Status: Acute (4) Osteoarthritis of right knee: Status: Acute Plan 82 year old male with history of paroxysmal atrial fibrillation on xarelto, htn, hld, HFpEF, CAD s/p CABG, carotid stenosis, s/p bovine valve replacement, and OA admitted for Shortness of breath likely related to acute blood loss anemia, as well as acute kidney injury, hyperkalemia. # Acute blood loss anemia due to right thigh hematoma s/p 1 unit of packed RBC hematocrit improved from 22.3-24 but dropped to 20.9 this morning likely delusional no active bleeding noted Give 1 unit of packed RBC repeat hematocrit Hold Xarelto Check stool guaiac Obtain orthostatic blood pressures since patient fell at home 2 days ago likely syncope due to orthostatic BP, patient was lightheaded and dizzy prior to fall No head injury. Continue tele monitoring. #Acute kidney injury likely due to dehydration with diuretic use Renal function normalized status post IV fluid , Lasix and Aldactone on hold, follow BMP, and clinical course Will give Lasix if noted to have fluid overload or shortness of breath # Hyperkalemia likely due to acute kidney injury ,potassium supplement and Aldactone Potassium normalized status post Lokelma Continue to hold Aldactone and potassium supplement #HTN -Stable BP, continue metoprolol. Hold p.o. Lasix and aldactone # paroxysmal atrial fibrillation -now in normal sinus rhythm , rate controlled -hold Xarelto, metoprolol for rate control # coronary artery disease -no anginal chest pain, EKG without any evidence of acute ischemia -continue metoprolol, statin and hold aspirin # aortic valve replacement on Xarelto, hold Xarelto today follow H&H if hematocrit improved will resume Xarelto # history of chronic CHF with preserved EF no acute exacerbation, recently admitted to [facility] in October 2022 with acute CHF exacerbation and was started on spironolactone b.i.d. 25 mg and was continued on Lasix 80 Will start back on Lasix low-dose DVT prophylaxis-compression boots due to right thigh hematoma/anemia Full code Patient requires inpatient stay for management of acute blood loss anemia requiring blood transfusion. Quality Stroke Does the patient have a stroke diagnosis?: No VTE Prior VTE?: No VTE Risk Level:: Medical - moderate - high VTE Device Contraindication: N/A - Device Ordered VTE Drug Contraindication: Treatment Not Indicated
[2023-02-06 15:04] LABS: Hematocrit 25.3 % (42.0-52.0); Hemoglobin 8.1 g/dl (14.0-18.0)
[2023-02-06] MEDS: guaiFENesin DM 100/10/5 ML 5 ML SYRUP 10 ML PO ×2 (16:58→20:26)
[2023-02-06] MEDS: Ezetimibe 10 MG TABLET PO (20:26)
[2023-02-07] VITALS (9 sets, daily range): BP systolic 104–135; BP diastolic 53–68; PULSE 75–91; RESP 18–20; TEMP 35.8–37.1; O2SAT 92–99
[2023-02-07 07:21] LABS: Hematocrit 23.6 % (42.0-52.0); Hemoglobin 7.4 g/dl (14.0-18.0); Mean Corpuscular HGB Conc 31.4 g/dl (31.0-36.0); Mean Corpuscular Hemoglobin 27.4 pg (27.0-33.0); Mean Corpuscular Volume 87.4 fL (80.0-98.0); Mean Platelet Volume 9.7 fL (9.4-12.4); Platelet Count 224 X10*3/uL (160-400); Red Cell Distribution Width 18.4 % (11.0-16.0); White Blood Count 10.1 X10*3/uL (4.8-10.8)
[2023-02-07 07:32] LABS: Anion Gap 12 (12-20); Blood Urea Nitrogen 32 mg/dL (9-16); Calcium 8.6 mg/dL (8.4-10.2); Carbon Dioxide 22 mmol/L (22-29); Chloride 107 mmol/L (96-108); Creatinine Clr Calc Pharmacy 48.1; Estimated Glomerular Filt Rate 52; Glucose Random 125 mg/dL (60-115); Potassium 4.3 mmol/L (3.3-5.1); Sodium 137 mmol/L (135-145)
[2023-02-07 08:02] LABS: Magnesium 2.1 mg/dL (1.6-2.6)
[2023-02-07] MEDS: guaiFENesin DM 100/10/5 ML 5 ML SYRUP 10 ML PO ×3 (08:07→21:51)
[2023-02-07] MEDS: Calcium + Vitamin D 250 MG TABLET 500 MG PO (08:08)
[2023-02-07] MEDS: Multivitamin TABLET 1 TAB PO (08:08)
[2023-02-07] MEDS: Metoprolol Tartrate 25 MG TABLET PO ×3 (08:08→17:10)
[2023-02-07] MEDS: Furosemide 40 MG TABLET 80 MG PO (08:08)
--- NOTE | 2023-02-07 09:21 | MHC.CM.PN ---
IMM 02/07. Pt lives at home with his /HCP, is self-care, uses a cane occasionally. Goal is to return home self-care with who will transport him home. HCP on file and verified. PCP: Dr. Nader Josue
--- NOTE | 2023-02-07 14:39 | HO.PM.IMPN ---
Subjective Subjective Date of Service: 02/07/23 Interval History: Offers no acute complaints continue to have right thigh discomfort, denies fever, no chills.had 15 beats vtach this a.m. was asymptomatic, denies chest pain, no palpitations, no shortness of breath, no acute events overnight. Review of Systems All other system reviewed and negative. Physical Exam Vital Signs: Vital Signs: Last Vital Signs Temp 98.1 F 02/07/23 12:40 Pulse 83 02/07/23 12:40 Resp 20 02/07/23 12:40 BP 113/56 L 02/07/23 12:40 Pulse Ox 94 02/07/23 12:00 O2 Del Method Room Air 02/07/23 12:00 BMI result Body Mass Index 25.7 Const: Other: Constitutional : A wake, alert, inter active, not in dis tress Moist mucosa Neck : Normal ins pection, no JVD Ca rdiovascular : RRR , Respiratory : go od bilateral air e ntry, no wheeze, no rhonchi Gastroi ntestinal: soft, Normal bowel sound s, Non tender Righ t thigh bigger mary n left due to righ t thigh hematoma S kin : Warm, Dry Ne urological : Alert & oriented x3, No focal deficit Psy ch appropriate aff ect Objective Data Active Medications Albuterol Sulfate (Albuterol Sulfate 90 Mcg 8 Gm Inhaler) 1 puff INHALE RQ4H PRN PRN Reason: Shortness Of Breath Calcium Carbonate/Cholecalciferol (Calcium + Vitamin D 250 Mg Tablet) 500 mg PO DAILY [facility] Last Admin: 02/07/23 08:08 Dose: 500 mg Documented By: DHIRAJ Ezetimibe (Ezetimibe 10 Mg Tablet) 10 mg PO BEDTIME [facility] Last Admin: 02/06/23 20:26 Dose: 10 mg Documented By: DESHAUN Furosemide (Furosemide 40 Mg Tablet) 80 mg PO DAILY [facility]; Protocol Last Admin: 02/07/23 08:08 Dose: 80 mg Documented By: DHIARJ Guaifenesin/Dextromethorphan (Guaifenesin Dm 100/10/5 Ml 5 Ml Syrup) 10 ml PO TID [facility] Last Admin: 02/07/23 08:07 Dose: 10 ml Documented By: DHIRAJ Metoprolol Tartrate (Metoprolol Tartrate 25 Mg Tablet) 25 mg PO TID@0800,1200,1600 [facility]; Protocol Last Admin: 02/07/23 13:07 Dose: 25 mg Documented By: DHIRAJ Multivitamins/Vitamin C (Multivitamin Tablet) 1 tab PO DAILY [facility] Last Admin: 02/07/23 08:08 Dose: 1 tab Documented By: DHIRAJ Non-Formulary Medication (Rosuvastatin) 40 mg PO BEDTIME [facility] Labs 02/07/23 06:49 02/07/23 06:49 Labs: Laboratory Results - last 24 hr 02/05/23 02/07/23 12:41 06:49 MCV 87.4 MCH 27.4 MCHC 31.4 RDW 18.4 H Plt Count 224 MPV 9.7 Absolute Nucleated RBC 0.000 Nucleated RBC % (auto) 0.0 Anion Gap 12 Estim Creat Clear Calc 48.1 Estimated GFR 52 Random Glucose 125 H Calcium 8.6 Magnesium 2.1 Blood Type A Positive Antibody Screen NEGATIVE Crossmatch See Detail Assessment and Plan (1) Acute hyperkalemia: Status: Acute (2) Hematoma of right thigh: Status: Acute (3) Acute anemia: Status: Acute (4) Osteoarthritis of right knee: Status: Acute Plan 82 year old male with history of paroxysmal atrial fibrillation on xarelto, htn, hld, HFpEF, CAD s/p CABG, carotid stenosis, s/p bovine valve replacement, and OA admitted for Shortness of breath likely related to acute blood loss anemia, as well as acute kidney injury, hyperkalemia. # Acute on chronic normocytic anemia/ acute blood loss anemia due to right thigh hematoma s/p 1 unit of packed RBC hematocrit improved from 22.3 to 24 but dropped to 20.9 felt to be dilutional, no active bleeding noted s/p second unit of packed RBC on 02/06 repeat hematocrit low again this morning, will give 1 additional unit today Continue to hold Xarelto Hematocrit has been gradually drifting down since October of 2022 Check stool guaiac, iron panel, ferritin, LDH,hapto and retic , if all workup negative than bone marrow exam, consulted Dr Josue orthostatic blood pressures negative done after ivf,, patient fell at home 2 days ago likely syncope due to orthostatic BP, he was lightheaded and dizzy prior to fall,had oscar , No head injury. Continue tele monitoring. # nonsustained V-tach this morning patient remained asymptomatic, continue metoprolol stable electrolytes and magnesium #Acute kidney injury likely due to dehydration with diuretic use Renal function normalized status post IV fluid Will resume Lasix 80 mg daily continue to hold Aldactone. # Hyperkalemia likely due to acute kidney injury ,potassium supplement and Aldactone Potassium normalized status post Lokelma Continue to hold Aldactone and potassium supplement #HTN -Stable BP, continue metoprolol and Lasix dc aldactone upon dc # paroxysmal atrial fibrillation -now in normal sinus rhythm , rate controlled -hold Xarelto, metoprolol for rate control # coronary artery disease -no anginal chest pain, EKG without any evidence of acute ischemia -continue metoprolol, statin and hold aspirin # aortic valve replacement with prosthetic valve # history of chronic CHF with preserved EF no acute exacerbation, recently admitted to [facility] in October 2022 with acute CHF exacerbation and was started on spironolactone b.i.d. 25 mg and was continued on Lasix 80 Continue Lasix 80 mg on discharge and will DC spironolactone since patient was and SOCAR with symptoms of lightheadedness dizziness DVT prophylaxis-compression boots due to right thigh hematoma/anemia Full code Disposition will obtain PT eval at a.m. once hematocrit stabilizes for safe disposition since patient has macular degeneration and presented with lightheadedness dizziness. Patient requires inpatient stay for management of acute blood loss anemia requiring blood transfusion. Quality Stroke Does the patient have a stroke diagnosis?: No VTE Prior VTE?: No VTE Risk Level:: Medical - moderate - high VTE Device Contraindication: N/A - Device Ordered VTE Drug Contraindication: Treatment Not Indicated
--- NOTE | 2023-02-07 18:48 | PC.NURSE ---
0736 pt had 15 beat vtach. Asymptomatic at time, Dr Knox notified. Mag level checked and WNL. 1 unit PRBC's given this am pt tolerated well. Fall precautions in place. Will continue to monitor and report changes
[2023-02-07] MEDS: Ezetimibe 10 MG TABLET PO (21:51)
[2023-02-08] VITALS (8 sets, daily range): BP systolic 106–151; BP diastolic 55–67; PULSE 77–83; RESP 18–20; TEMP 36.6–37.2; O2SAT 94–98
[2023-02-08 07:49] LABS: Hematocrit 25.1 % (42.0-52.0); Hemoglobin 8.1 g/dl (14.0-18.0); Mean Corpuscular HGB Conc 32.3 g/dl (31.0-36.0); Mean Corpuscular Hemoglobin 28.1 pg (27.0-33.0); Mean Corpuscular Volume 87.2 fL (80.0-98.0); Mean Platelet Volume 9.4 fL (9.4-12.4); NRBC Pct Auto 0.2 /100WBC (0.0-0.2); Platelet Count 222 X10*3/uL (160-400); Red Blood Count 2.88 X10*6/uL (4.60-5.80); Red Cell Distribution Width 18.4 % (11.0-16.0); White Blood Count 9.8 X10*3/uL (4.8-10.8)
[2023-02-08 07:55] LABS: Immature Retic Fraction 32.4 % (2.3-13.4); Retic HGB Equivalent 25.6 pg (30.0-35.0); Reticulocyte Percent 4.2 % (0.5-1.8)
[2023-02-08] MEDS: Multivitamin TABLET 1 TAB PO (07:59)
[2023-02-08] MEDS: Calcium + Vitamin D 250 MG TABLET 500 MG PO (07:59)
[2023-02-08] MEDS: Furosemide 40 MG TABLET 80 MG PO (07:59)
[2023-02-08] MEDS: Metoprolol Tartrate 25 MG TABLET PO ×3 (07:59→16:09)
[2023-02-08] MEDS: guaiFENesin DM 100/10/5 ML 5 ML SYRUP 10 ML PO ×3 (07:59→21:09)
[2023-02-08 08:00] LABS: Anion Gap 12 (12-20); Blood Urea Nitrogen 32 mg/dL (9-16); Calcium 8.5 mg/dL (8.4-10.2); Carbon Dioxide 23 mmol/L (22-29); Chloride 104 mmol/L (96-108); Creatinine Clr Calc Pharmacy 52.5; Estimated Glomerular Filt Rate 58; Glucose Random 114 mg/dL (60-115); Iron 43 mcg/dL (45-160); Lactate Dehydrogenase 277 U/L (118-273); Percent Iron Saturation 15 % (15-50); Potassium 3.7 mmol/L (3.3-5.1); Sodium 135 mmol/L (135-145); Total Iron Binding Capacity 282 mcg/dL (228-428); Unsaturated Iron Binding 239 ug/dL
[2023-02-08 08:19] LABS: Ferritin 277 ng/mL (20-250)
[2023-02-08 09:58] LABS: OBS Int Ctl Valid YES; OBS1 NEGATIVE (NEGATIVE)
--- NOTE | 2023-02-08 12:59 | HO.PM.IMPN ---
Subjective Subjective Date of Service: 02/08/23 Interval History: dyspnea improved after transfusion Review of Systems Review of Systems: Yes all other systems are reviewed and are negative Physical Exam Vital Signs: Vital Signs: Last Vital Signs Temp 97.8 F 02/08/23 10:56 Pulse 78 02/08/23 10:56 Resp 20 02/08/23 10:56 BP 115/55 L 02/08/23 10:56 Pulse Ox 96 02/08/23 10:56 O2 Del Method Room Air 02/08/23 10:56 BMI result Body Mass Index 25.7 Gen: in no acute distress HEENT: sclera anicteric, moist/pale mucus membranes Neck: supple Lungs: clear to auscultation bilaterally Heart: regular rate and rhythm, no murmurs Abd: soft, non-tender, non-distended Ext: no edema, R thigh swollen Skin: warm/well-perfused Neuro: alert and oriented x3, no focal findings Psych: appropriate affect Objective Data Active Medications Albuterol Sulfate (Albuterol Sulfate 90 Mcg 8 Gm Inhaler) 1 puff INHALE RQ4H PRN PRN Reason: Shortness Of Breath Calcium Carbonate/Cholecalciferol (Calcium + Vitamin D 250 Mg Tablet) 500 mg PO DAILY [facility] Last Admin: 02/08/23 07:59 Dose: 500 mg Documented By: ROSELIA Ezetimibe (Ezetimibe 10 Mg Tablet) 10 mg PO BEDTIME [facility] Last Admin: 02/07/23 21:51 Dose: 10 mg Documented By: DOMINIC Furosemide (Furosemide 40 Mg Tablet) 80 mg PO DAILY [facility]; Protocol Last Admin: 02/08/23 07:59 Dose: 80 mg Documented By: ROSELIA Guaifenesin/Dextromethorphan (Guaifenesin Dm 100/10/5 Ml 5 Ml Syrup) 10 ml PO TID [facility] Last Admin: 02/08/23 07:59 Dose: 10 ml Documented By: ROSELIA Metoprolol Tartrate (Metoprolol Tartrate 25 Mg Tablet) 25 mg PO TID@0800,1200,1600 [facility]; Protocol Last Admin: 02/08/23 11:19 Dose: 25 mg Documented By: ROSELIA Multivitamins/Vitamin C (Multivitamin Tablet) 1 tab PO DAILY [facility] Last Admin: 02/08/23 07:59 Dose: 1 tab Documented By: ROSELIA Non-Formulary Medication (Rosuvastatin) 40 mg PO BEDTIME [facility] Labs 02/08/23 07:06 02/08/23 07:06 Labs: Laboratory Results - last 24 hr 02/05/23 02/05/23 02/08/23 11:40 12:41 07:06 MCV 87.2 MCH 28.1 MCHC 32.3 RDW 18.4 H Plt Count 222 MPV 9.4 Absolute Nucleated RBC 0.020 H Nucleated RBC % (auto) 0.2 Smear Path Review Absolute Retic 0.120 H Percent Retic 4.2 H Immature Retic Fraction 32.4 H Retic Hgb Equivalent 25.6 L Anion Gap 12 Estim Creat Clear Calc 52.5 Estimated GFR 58 Random Glucose 114 Calcium 8.5 Iron 43 L TIBC 282 % Saturation 15 Unsat Iron Binding 239 Ferritin 277 H Lactate Dehydrogenase 277 H Stool Occult Blood Crossmatch See Detail 02/08/23 09:30 MCV MCH MCHC RDW Plt Count MPV Absolute Nucleated RBC Nucleated RBC % (auto) Smear Path Review Absolute Retic Percent Retic Immature Retic Fraction Retic Hgb Equivalent Anion Gap Estim Creat Clear Calc Estimated GFR Random Glucose Calcium Iron TIBC % Saturation Unsat Iron Binding Ferritin Lactate Dehydrogenase Stool Occult Blood NEGATIVE Crossmatch Assessment and Plan (1) Acute hyperkalemia: Status: Acute (2) Hematoma of right thigh: Status: Acute (3) Acute anemia: Status: Acute (4) Osteoarthritis of right knee: Status: Acute Plan d4 82yo M with pAF on rivaroxaban, severe pHTN/R-sided HF, CAD s/p CABG, COD, s/p bioprosthetic valve admitted for dyspnea thought to be due to progressive anemia, also OSCAR + hyperK acute/chronic normocytic anemia - H+H drifting down since Oct 2022. transfused 3u pRBCs this admission - continue to hold rivaroxaban. - discussed with Dr Josue. doubt it is related to R thigh hematoma. will consult Heme for possible bone marrow aspiration orthostatic syncope - likely related to anemia, resolved after transfusion + fluids hyperK - improved s/p Lokelma and d/c'ing spironolactone NSVT - monitor on telemetry, continue metoprolol, monitor K/Mg OSCAR, prerenal - resolved s/p IV fluids + transfusion R-sided CHF - continue furosemide + metoprolol paroxysmal AF - continue metoprolol for RC - hold rivaroxaban given anemia CAD - continue metoprolol + statin VTE ppx - SCDs dispo - PT consult In my clinical judgment, the patient requires continued inpatient hospitalization for the following reasons: anemia Total time managing care of this patient today: 40 minutes. Quality Stroke Does the patient have a stroke diagnosis?: No VTE Prior VTE?: No VTE Risk Level:: Medical - moderate - high VTE Device Contraindication: N/A - Device Ordered VTE Drug Contraindication: Treatment Not Indicated
--- NOTE | 2023-02-08 13:32 | P.CNHO_ITS ---
Subjective - Subjective Chief complaint: shortness of breath, right thigh pain Patient: new to practice Consult date: 02/08/23 Requesting Physician: Dr. Sumner Primary Care Provider: Nader Josue MD HPI - Consult Narrative Reason for consult: Anemia Narrative: Pedro Lobato is a 82 year old male who has been admitted for acute on chronic anemia. His past medical history significant for paroxysmal atrial fibrillation on Xarelto, hypertension, hyperlipidemia, heart failure with preserved EF, coronary artery disease status post CABG, carotid stenosis, status post bovine valve replacement for aortic stenosis and osteoarthritis presented to emergency room due to symptoms of shortness of breath that started 1 week ago but worsened in last 2 days without associated chest pain or palpitation. Patient also complained of nausea vomiting of 1 day duration, as per patient he was taking down trash 2 days ago and fell down with loss of consciousness for few seconds, likely fall due to poor vision, he fell on his right hip and since and has been having difficulty in ambulation due to significant right thigh pain, therefore patient presented to emergency room he denied associated symptoms of fever chills, no sick contacts, this morning patient vomited x2 he denied associated abdominal pain, no bloody stools, in the emergency room patient noted to have hematocrit of 22.3, with recent hematocrit of 32.8 and hemoglobin of 9.8 with a hemoglobin of 6.7 elevated WBC count of 14.4, creatinine 1.93 elevated potassium 6.2 COVID test negative, chest x-ray showed the left basilar opacity increased from prior imaging suggesting small pleural effusion with subjacent atelectasis. Patient's hemoglobin has been gradually declining since 2019. His iron studies showed low serum iron with a% saturation of 15 and a ferritin of 277. At this time he reports that they right type pain and swelling has come down. He has been off Xarelto since he got admitted. Review of Systems - Constitutional Reports as per HPI, Reports fatigue, Reports malaise - Cardiovascular Reports no additional cardiovascular complaints - Respiratory Reports no additional respiratory complaints [facility] Medical History: Medical History (Last Reviewed 02/08/23 @ 08:49 by Aleida Duggan, PT) Atrial fibrillation CHF (congestive heart failure) Coronary artery disease Hemarthrosis, right knee Osteoarthritis of right knee PAF (paroxysmal atrial fibrillation) Family History: Family History (Last Reviewed 02/05/23 @ 13:48 by Yosvany Tyler MD) Father No problems noted. Mother No problems noted. Surgical History: Surgical History (Last Reviewed 02/08/23 @ 08:49 by Aleida Duggan PT) H/O cardiac catheterization H/O coronary artery bypass surgery Heart valve replaced Social History: Social History (Last Reviewed 02/05/23 @ 13:48 by Yosvany Tyler MD) Living Situation History: Household Members: Spouse Housing: House Do you presently have visiting nurse or other home services: No Alcohol History Details: 1. How often do you have a drink containing alcohol?: a. Never AUDIT-C Alcohol total score: 0 Currently Displaying Signs/Symptoms of Alcohol Withdrawal: No Tobacco History: Patient Tobacco Use Status: Former Tobacco user Smoked in Last 30 Days: No Smoke Quit Date: 40 years ago Substance Use History: Use of substances other than those prescribed or required for medical reasons : No Currently Displaying Signs/Symptoms of Drug Intoxication Withdrawal: No Domestic Abuse History: Have you been hit, kicked, punched, or otherwise hurt by someone within the past year? If so, by whom?: No Do you feel safe in your current relationship?: Yes Is there a partner from a previous relationship who is making you feel unsafe now?: No Are you made to feel afraid or neglected: No Advance Directives: Advance Directives: No Advance Directives Information Provided: No Homicidal Assessment: Do you have thoughts of harming others: None Do you have a plan to hurt others: No Plan Nutrition Assessment: Recently lost weight without trying: No Nutrition Risks: No Nutritional Risk Occupation Assessmet: service: No Home Medications and Allergies Current Medications: Current Medications Albuterol Sulfate (Albuterol Sulfate 90 Mcg 8 Gm Inhaler) 1 puff INHALE RQ4H PRN PRN Reason: Shortness Of Breath Calcium Carbonate/Cholecalciferol (Calcium + Vitamin D 250 Mg Tablet) 500 mg PO DAILY [facility] Last Admin: 02/08/23 07:59 Dose: 500 mg Ezetimibe (Ezetimibe 10 Mg Tablet) 10 mg PO BEDTIME [facility] Last Admin: 02/07/23 21:51 Dose: 10 mg Furosemide (Furosemide 40 Mg Tablet) 80 mg PO DAILY [facility]; Protocol Last Admin: 02/08/23 07:59 Dose: 80 mg Guaifenesin/Dextromethorphan (Guaifenesin Dm 100/10/5 Ml 5 Ml Syrup) 10 ml PO TID [facility] Last Admin: 02/08/23 07:59 Dose: 10 ml Metoprolol Tartrate (Metoprolol Tartrate 25 Mg Tablet) 25 mg PO TID@0800,1200,1600 [facility]; Protocol Last Admin: 02/08/23 11:19 Dose: 25 mg Multivitamins/Vitamin C (Multivitamin Tablet) 1 tab PO DAILY [facility] Last Admin: 02/08/23 07:59 Dose: 1 tab Non-Formulary Medication (Rosuvastatin) 40 mg PO BEDTIME [facility] Home Medications Medication Instructions Recorded Confirmed Type aspirin 81 mg tablet,delayed 81 mg PO DAILY 12/14/21 02/05/23 History release (Adult Aspirin Regimen) furosemide 80 mg tablet 80 mg PO QAM 12/14/21 02/05/23 History metoprolol tartrate 25 mg tablet 25 mg PO TID@0800,1200,1600 12/14/21 02/05/23 History rivaroxaban 15 mg tablet (Xarelto) 15 mg PO DAILY 12/14/21 02/05/23 History albuterol sulfate 90 mcg/actuation 1 puff inhalation Q4H PRN 11/01/22 02/05/23 History aerosol inhaler Shortness Of Breath ezetimibe 10 mg tablet 10 mg PO BEDTIME 11/01/22 02/05/23 History omega-3 fatty acids 1,200 mg PO DAILY 11/01/22 02/05/23 History rosuvastatin 40 mg tablet 40 mg PO BEDTIME 11/01/22 02/05/23 History calcium carbonate 600 mg-vitamin 2 cap PO DAILY 02/05/23 02/05/23 History D3 12.5 mcg (500 unit) capsule (Calcium 600 with Vitamin D3) potassium chloride 20 mEq 40 meq PO QAM 02/05/23 02/05/23 History tablet,extended release(part/cryst) (Klor-Con M) spironolactone 25 mg tablet 25 mg PO DAILY@0900 02/05/23 02/05/23 History vitamins A,C,X-kzyl-zhycvh 2,148 1 tab PO BID 02/05/23 02/05/23 History mcg-113 mg-45 mg-17.4 mg tablet (PreserVision AREDS) Allergies Allergy/AdvReac Type Severity Reaction Status Date / Time [id number] Reductase AdvReac Mild LEG Verified 03/01/22 10:31 Inhibitor PAIN/NUMBNESS/RESTLESSLESS [[id number] REDUCTASE INHIBITOR] Physical Exam Vital signs: Vital Signs Temp 97.8 F 02/08/23 10:56 Pulse 78 02/08/23 10:56 Resp 20 02/08/23 10:56 BP 115/55 L 02/08/23 10:56 Pulse Ox 96 02/08/23 10:56 O2 Del Method Room Air 02/08/23 10:56 Intake & Output 02/07/23 02/08/23 02/08/23 18:59 06:59 18:59 Intake Total 690 / 1240 550 / 1240 Output Total 600 / 1590 990 / 1590 Balance 90 / -350 -440 / -350 Urine Output (Average ml/kg/hr) 0.58 0.96 Intake: Intake, Oral Amount 240 / 790 550 / 790 Intake (Blood Product) Amount 350 / 350 Red Blood Cells (E0382) Unit 350 / 350 [id number] Intake, IV Amount 100 / 100 0.9 % Sodium Chloride 100 ml @ 100 / 100 100 mls/hr IV ONCE ONE Rx#: [id number] Output: Output, Urine Amount 600 / 1590 990 / 1590 Other: Meal Refused No NPO No Breakfast % Eaten 50% Lunch % Eaten 50% Dinner % Eaten 100% Evening Snack % Eaten 100 Number of Unmeasured Voids 1 Number of Bowel Movements 1 1 Urine Urinal Urine Color Yellow Last Bowel Movement 02/07/23 02/07/23 Stool Bathroom Bathroom Stool Amount Large Small Stool Color Brown Brown Stool Consistency Soft Weight 86.1 kg - Constitutional Present: no acute distress, average body habitus - Routine HEENT Exam Head: Present: normal inspection Eye: Present: normal appearance, conjunctivae pale - Routine Neck Exam Present: supple. Absent: lymphadenopathy - Routine Respiratory Exam Absent: accessory muscle use - Routine Cardiovascular Exam Cardiovascular: Present: S1, S2 - Routine Extremities Exam Present: pulses intact Comments: Slight swelling of her right thigh, no redness or hematoma visible. Hem/Onc Consult Result - Labs CBC & Chem 7: 02/08/23 07:06 02/08/23 07:06 Labs: Short CBC 02/08/23 Range/Units 07:06 WBC 9.8 (4.8-10.8) X10*3/uL Hgb 8.1 L (14.0-18.0) g/dl Hct 25.1 L (42.0-52.0) % Plt Count 222 (160-400) X10*3/uL [facility] 02/08/23 07:06 Sodium 135 Potassium 3.7 Chloride 104 Carbon Dioxide 23 BUN 32 H Creatinine 1.21 Calcium 8.5 Assessment and Plan Patient Active problem list reviewed?: Yes (1) Acute anemia Status: Acute Assessment and plan: 1. This is a pleasant 82-year-old male with multiple medical problems including paroxysmal atrial fibrillation, CHF who has been on baby aspirin and Xarelto presenting with acute on chronic anemia. He suffered a fall and developed right thigh hematoma, he received a total of 3 units PRBC for a hemoglobin of 6.6 gram/dL. On admission he was also noted to have acute kidney injury which could also be contributing to his anemia. He has normocytic anemia which is probably multifactorial. Iron indices indicate anemia of chronic disease. Submit vitamin B12, folic acid level, serum copper, serum protein electrophoresis and immunofixation. His anemia is probably multifactorial. Acute blood loss and acute kidney injury probably contributing to his anemia. Rule out myelodysplastic syndrome, plasma cell dyscrasia are other possibilities given his age. Blood work has been submitted. It would probably be best to hold anticoagulation until his anemia resolves. I thank you for this consultation. - Time Spent With Patient Time Spent with Patient (in minutes): 20
[2023-02-08 20:53] LABS: Haptoglobin 275 MG/DL ((30-200))
[2023-02-08] MEDS: Ezetimibe 10 MG TABLET PO (21:09)
[2023-02-09 03:58] VITALS: BP 131/61; PULSE 76; RESP 18; TEMP 36.3; O2SAT 97
[2023-02-09 07:21] VITALS: BP 102/57; PULSE 76; RESP 20; TEMP 36.8; O2SAT 97
[2023-02-09 07:51] LABS: Hematocrit 26.8 % (42.0-52.0); Hemoglobin 8.6 g/dl (14.0-18.0); Mean Corpuscular HGB Conc 32.1 g/dl (31.0-36.0); Mean Corpuscular Hemoglobin 28.3 pg (27.0-33.0); Mean Corpuscular Volume 88.2 fL (80.0-98.0); Mean Platelet Volume 9.2 fL (9.4-12.4); NRBC Pct Auto 0.2 /100WBC (0.0-0.2); Platelet Count 249 X10*3/uL (160-400); Red Blood Count 3.04 X10*6/uL (4.60-5.80); Red Cell Distribution Width 19.3 % (11.0-16.0); White Blood Count 9.7 X10*3/uL (4.8-10.8)
[2023-02-09 08:14] LABS: Anion Gap 11 (12-20); Blood Urea Nitrogen 33 mg/dL (9-16); Calcium 8.6 mg/dL (8.4-10.2); Carbon Dioxide 24 mmol/L (22-29); Chloride 106 mmol/L (96-108); Creatinine Clr Calc Pharmacy 52.1; Estimated Glomerular Filt Rate 57; Glucose Random 130 mg/dL (60-115); Magnesium 1.9 mg/dL (1.6-2.6); Potassium 3.8 mmol/L (3.3-5.1); Sodium 137 mmol/L (135-145)
[2023-02-09 08:20] LABS: B Type Natriuretic Peptide 922 pg/mL (<100)
[2023-02-09 08:50] LABS: Vitamin B12 334 pg/mL (200-900)
[2023-02-09] MEDS: Calcium + Vitamin D 250 MG TABLET 500 MG PO (09:22)
[2023-02-09] MEDS: guaiFENesin DM 100/10/5 ML 5 ML SYRUP 10 ML PO ×2 (09:22→14:38)
[2023-02-09] MEDS: Metoprolol Tartrate 25 MG TABLET PO ×3 (09:23→14:38)
[2023-02-09] MEDS: Multivitamin TABLET 1 TAB PO (09:23)
[2023-02-09] MEDS: Furosemide 40 MG TABLET 80 MG PO (09:23)
--- NOTE | 2023-02-09 10:35 | MHC.CM.PN ---
Pt is medically cleared for D/C home with new [facility] today. Pts will transport him home this afternoon.
[2023-02-09 10:55] VITALS: BP 121/58; PULSE 76; RESP 20; TEMP 36.4; O2SAT 94
--- NOTE | 2023-02-09 11:50 | W.MHC.F2F ---
Service Date Service Date: 02/09/23 Encounter Date of encounter: 02/09/23 Reasons for Services Signs and symptoms assessed: Assessment & Plan of Care [Assessment] -Rehabilitation Potential Excellent -Assessment PT PRESENTS TODAY W/ MILD STRENGTH IMPAIRMENT, DYSPNEA ON EXERTION, MILD BALANCE IMPAIRMENT. REC HOME W/ HOME PT TO MAXIMIZE FUNCTION AND SAFETY -Problem List Dyspnea on Exertion, Impaired Gait Pattern, Impaired Standing Balance,Muscle Weakness Reason for physical therapy: home safety and mobility, therapeutic exercises, gait/transfer training, assess need for DME, ADL training and energy conservation Overseeing Care: Nader Josue Homebound: Leaving the home is medically contraindicated at this time without the asist of a device and/or another person due th the listed conditions above and below. Reason homebound: shortness of breath with minimal effort and weakness related to hospital stay Homebound supporting statement: -Frequency/Duration 3-5X/WK -Goals (1-3 VISITS) 1. GOOD SAFETY AWARENESS CONSISTENTLY W/ FUNCTIONAL MOBILITY 2. GAIT X 150' W/ FWW AND SUPERVISION -Treatment Plan Bed Mobility, Transfer Training,Gait Training, Therapeutic Activities, Therapeutic Exercise, Patient Education, Safety,Balance Certification: Based on the above findings, I certify that this patient is confined to the home and needs intermittent penitentiary care, physical therapy and/or speech therapy, or continues to need occupational therapy. The patient is under my care, and I have initiated the establishment of the plan of care. The patient will be followed by a physician who will periodically review the plan of care. Time Spent With Patient Time: Total time managing care of this patient today ____ minutes.
--- NOTE | 2023-02-09 11:52 | PM.DS ---
DS: Providers Provider Date of Service: 02/09/23 Date of admission: 02/05/23 18:01 Date of discharge: 02/09/23 Primary care physician: Nader Josue MD Consults: 02/07/23 15:38 Consult to Hematology / Oncology Routine Consulting Provider: Nader Josue Reason for consultation: anemia Has provider been notified: Yes 02/08/23 12:54 Consult to Hematology / Oncology Routine Consulting Provider: Teresa Becker Reason for consultation: progressive normocytic anemia- needs BMBx per Dr Josue? DS: Diagnosis Discharge Diagnosis (1) Acute on chronic anemia: Status: Acute (2) Orthostatic syncope: Status: Acute (3) Acute hyperkalemia: Status: Acute (4) Acute kidney injury: Status: Acute DS: Summary Hospital Course Hospital Course: from admission H+P on 02/05/23 by Rustam Knox MD, hospitalist: 82-year-old gentleman with past medical history significant for paroxysmal atrial fibrillation on Xarelto, hypertension, hyperlipidemia, heart failure with preserved EF, coronary artery disease status post CABG, carotid stenosis, status post bovine valve replacement for aortic stenosis and osteoarthritis presented to emergency room due to symptoms of shortness of breath that started 1 week ago but worsened in last 2 days without associated chest pain or palpitation patient also complained of nausea vomiting of 1 day duration, as per patient he was taking down trash 2 days ago and fell down with loss of consciousness for few seconds, likely fall due to poor vision, he fell on his right hip and since and has been having difficulty in ambulation due to significant right thigh pain, therefore patient presented to emergency room he denied associated symptoms of fever chills, no sick contacts, this morning patient vomited x2 he denied associated abdominal pain, no bloody stools, in the emergency room patient noted to have hematocrit of 22.3, with recent hematocrit of 32.8 and hemoglobin of 9.8 with a hemoglobin of 6.7 elevated WBC count of 14.4, creatinine 1.93 elevated potassium 6.2 COVID test negative, chest x-ray showed the left basilar opacity increased from prior imaging suggesting small pleural effusion with subjacent atelectasis, do underlying airspace disease not excluded, x-ray of right hip showed no acute visible fracture,it showed 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 82yo M with pAF on rivaroxaban, severe pHTN/R-sided HF, CAD s/p CABG, COD, and s/p bioprosthetic valve who was admitted for dyspnea thought to be due to progressive anemia, also OSCAR + hyperK. He was admitted to the hospitalist service. Hospital course by problem: acute/chronic normocytic anemia - H+H slowly drifting down since Oct 2022. Transfused 3u pRBCs this admission with improvement. FOBT negative. Hematology consulted; likely anemia of chronic disease though serum copper, SPEP, and SAMIRA pending. He will follow up with Dr Teresa Becker in 1-2 weeks with repeat CBC in 1 week. He may need a bone marrow aspiration at some point. orthostatic syncope - Likely related to anemia; resolved after transfusion + fluids. hyperkalemia - Improved after Lokelma and discontinuing potassium chloride and spironolactone. Continue to hold these medications and repeat BMP in 1 week. OSCAR - Mild and resolved after transfusion and fluids. He should follow up with his primary care doctor in 1-2 weeks and hematology in 1-2 weeks. Time Attestation Total time managing care of this patient today: 35 mintues. Discharge coordination time: Greater than 30 minutes Quality: Safe Use of Opioids Does Pt have an Active Cancer Diagnosis on the Problem List?: No Quality: Stroke Does the patient have a stroke diagnosis?: No Physical Exam Vital Signs: Vital Signs: Last Vital Signs Temp 97.6 F 02/09/23 10:55 Pulse 76 02/09/23 10:55 Resp 20 02/09/23 10:55 BP 121/58 L 02/09/23 10:55 Pulse Ox 94 02/09/23 10:55 O2 Del Method Room Air 02/09/23 10:55 BMI result Body Mass Index 25.7 Gen: in no acute distress HEENT: sclera anicteric, moist mucus membranes Neck: supple Lungs: clear to auscultation bilaterally Heart: regular rate and rhythm, no murmurs Abd: soft, non-tender, non-distended Ext: no edema Skin: warm/well-perfused Neuro: alert and oriented x3, no focal findings Psych: appropriate affect DS: Data Data Completed and Pending Completed studies during hospitalization [Text1]: Laboratory Results WBC 9.7 X10*3/uL (4.8-10.8) 02/09/23 06:56 RBC 3.04 X10*6/uL (4.60-5.80) L 02/09/23 06:56 Hgb 8.6 g/dl (14.0-18.0) L 02/09/23 06:56 Hct 26.8 % (42.0-52.0) L 02/09/23 06:56 MCV 88.2 fL (80.0-98.0) 02/09/23 06:56 MCH 28.3 pg (27.0-33.0) 02/09/23 06:56 MCHC 32.1 g/dl (31.0-36.0) 02/09/23 06:56 RDW 19.3 % (11.0-16.0) H 02/09/23 06:56 Plt Count 249 X10*3/uL (160-400) 02/09/23 06:56 MPV 9.2 fL (9.4-12.4) L 02/09/23 06:56 Immature Gran % (Auto) 0.5 % (0.0-0.4) H 02/05/23 21:58 Neut % (Auto) 73.2 % (45-73) H 02/05/23 21:58 Lymph % (Auto) 6.5 % (20-40) L 02/05/23 21:58 [place] % (Auto) 19.5 % (2-11) H 02/05/23 21:58 Eos % (Auto) 0.1 % (0-4) 02/05/23 21:58 Baso % (Auto) 0.2 % (0-2) 02/05/23 21:58 Lymph # (Auto) 1.0 X10*3/uL (1.2-4.9) L 02/05/23 21:58 [place] # (Auto) 2.9 X10*3/uL (0.1-1.2) H 02/05/23 21:58 Eos # (Auto) 0.0 X10*3/uL (0.0-0.4) 02/05/23 21:58 Baso # (Auto) 0.0 X10*3/uL (0.0-0.2) 02/05/23 21:58 Abs Immat Gran (auto) 0.08 X10*3/uL (0.00-0.03) H 02/05/23 21:58 Absolute Neuts (auto) 10.9 x10*3/uL (2.0-8.3) H 02/05/23 21:58 Absolute Nucleated RBC 0.020 X10*3/uL (0.0-0.012) H 02/09/23 06:56 Nucleated RBC % (auto) 0.2 /100WBC (0.0-0.2) 02/09/23 06:56 Smear Tech's Comments VERIFIED 02/05/23 21:58 Smear Path Review 02/05/23 11:40 Absolute Retic 0.120 X10*6/uL (0.026-0.095) H 02/08/23 07:06 Percent Retic 4.2 % (0.5-1.8) H 02/08/23 07:06 Immature Retic Fraction 32.4 % (2.3-13.4) H 02/08/23 07:06 Retic Hgb Equivalent 25.6 pg (30.0-35.0) L 02/08/23 07:06 Haptoglobin 275 MG/DL ((30-200)) H 02/08/23 07:06 PT 25.8 SEC (11.1-13.3) H 02/05/23 11:40 INR 2.1 (0.9-1.1) H 02/05/23 11:40 Sodium 137 mmol/L (135-145) 02/09/23 06:56 Potassium 3.8 mmol/L (3.3-5.1) 02/09/23 06:56 Chloride 106 mmol/L (96-108) 02/09/23 06:56 Carbon Dioxide 24 mmol/L (22-29) 02/09/23 06:56 Anion Gap 11 (12-20) L 02/09/23 06:56 BUN 33 mg/dL (9-16) H 02/09/23 06:56 Creatinine 1.22 mg/dL (0.5-1.4) 02/09/23 06:56 Estim Creat Clear Calc 52.1 02/09/23 06:56 Estimated GFR 57 02/09/23 06:56 Random Glucose 130 mg/dL (60-115) H 02/09/23 06:56 Calcium 8.6 mg/dL (8.4-10.2) 02/09/23 06:56 Magnesium 1.9 mg/dL (1.6-2.6) 02/09/23 06:56 Iron 43 mcg/dL (45-160) L 02/08/23 07:06 TIBC 282 mcg/dL (228-428) 02/08/23 07:06 % Saturation 15 % (15-50) 02/08/23 07:06 Unsat Iron Binding 239 ug/dL 02/08/23 07:06 Ferritin 277 ng/mL (20-250) H 02/08/23 07:06 Total Bilirubin 0.8 mg/dL (0.0-1.0) 02/05/23 11:40 Direct Bilirubin 0.4 mg/dL (0.0-0.5) 02/05/23 11:40 AST 28 U/L (5-37) 02/05/23 11:40 ALT 16 U/L (0-40) 02/05/23 11:40 Alkaline Phosphatase 53 U/L (39-117) 02/05/23 11:40 Lactate Dehydrogenase 277 U/L (118-273) H 02/08/23 07:06 Troponin I High Sens 35.9 ng/L (<3.5-35.0) H 02/05/23 14:50 B-Natriuretic Peptide 922 pg/mL (<100) H 02/09/23 06:56 Total Protein 7.8 g/dL (6.5-8.0) 02/05/23 11:40 Albumin 3.8 g/dL (3.5-5.0) 02/05/23 11:40 Vitamin B12 334 pg/mL (200-900) 02/09/23 06:56 Folate 10.0 ng/mL (> or = 4.0) 02/09/23 06:56 Urine Color Yellow 02/05/23 15:26 Urine Appearance Clear 02/05/23 15:26 Urine pH 5.0 (5.0-9.0) 02/05/23 15:26 Ur Specific [place] 1.015 (1.005-1.025) 02/05/23 15:26 Urine Protein Negative mg/dL (Neg-Trace) 02/05/23 15:26 Urine Glucose (UA) Negative mg/dL (Negative) 02/05/23 15:26 Urine Ketones Negative mg/dL (Negative) 02/05/23 15:26 Urine Blood Negative (Negative) 02/05/23 15:26 Urine Nitrite Negative (Negative) 02/05/23 15:26 Ur Leukocyte Esterase Negative (Negative) 02/05/23 15:26 Stool Occult Blood NEGATIVE (NEGATIVE) 02/08/23 09:30 Serum Copper Cancelled 02/09/23 06:56 COVID-19 (BETTINA) Negative (Negative) 02/05/23 11:40 COVID-19 Clin Com See Note 02/05/23 11:40 Blood Type A Positive 02/05/23 12:41 Antibody Screen NEGATIVE 02/05/23 12:41 ELIZ, Polyspecific NEGATIVE 02/09/23 06:56 Positive ELIZ Work-up TNP 02/09/23 06:56 Crossmatch See Detail 02/05/23 12:41 Impressions Chest X-Ray 02/05/23 12:10 IMPRESSION: 1. Redemonstration of left basilar opacity increased from prior imaging suggesting small pleural effusion with subjacent atelectasis though underlying airspace disease not excluded. 2. Interstitial prominence. Hip/Pelvis X-Ray 02/05/23 12:10 IMPRESSION: 1. No acute visible fracture or dislocation. 2. 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 3. Degenerative changes of the lumbosacral spine. Discharge Plan Discharge Anticipated Discharge Date/Time: 02/09/23 11:43 Patient Disposition: Home Health Service Discharge Diagnosis: acute/chronic normocytic anemia orthostatic syncope hyperkalemia Referrals: [facility] [Outside] - 1 Week Nader Josue MD [Primary Care Provider] - 1 Week Teresa Becker MD [Physician] - 1 Week Discharge Medications: Continued albuterol sulfate 90 mcg/actuation HFA aerosol inhaler 1 puff inhalation Q4H PRN (Reason: Shortness Of Breath) ezetimibe 10 mg Tablet 10 mg PO BEDTIME omega-3 fatty acids Capsule 1,200 mg PO DAILY rosuvastatin 40 mg Tablet 40 mg PO BEDTIME PreserVision AREDS 2,148 mcg-113 mg-45 mg-17.4mg Tablet 1 tab PO BID Rx Instructions: administer with AM and PM meals calcium carbonate-vitamin D3 [Calcium 600 with Vitamin D3] 600 mg-12.5 mcg (500 unit) Capsule 2 cap PO DAILY Xarelto 15 mg tablet 15 mg PO DAILY furosemide 80 mg tablet 80 mg PO QAM metoprolol tartrate 25 mg tablet 25 mg PO TID@0800,1200,1600 aspirin [Adult Aspirin Regimen] 81 mg tablet,delayed release (DR/EC) 81 mg PO DAILY Discontinued potassium chloride [Klor-Con M20] 20 mEq tablet,ER particles/crystals 40 meq PO QAM spironolactone 25 mg tablet 25 mg PO DAILY@0900 Protocol: Hold for SBP< HOLD for SBP < : 90 Discharge Orders: Discharge Order (Routine); Ordered 02/09/23 Ordered By: Braxton Sumner Diet: Low salt diet Activity on Discharge: As tolerated Stand Alone Forms: Patient Portal Discharge page Other Ambulatory Orders: Basic Metabolic Panel (Routine) Timeframe: 1 Week Facility: [facility] - Location: Laboratory Ordered By: Braxton Sumner Complete Blood Count Auto Diff (Routine) Timeframe: 1 Week Facility: [facility] - Location: Laboratory Ordered By: Braxton Sumner Care Plan Goals: diagnosis/treatment of anemia normal potassium Health Concerns: acute/chronic normocytic anemia orthostatic syncope hyperkalemia Plan of Treatment: check CBC in 1 week and follow up with Dr Teresa Becker from [facility] [place] [facility] in 1-2 weeks stop potassium chloride and spironolactone; check BMP in 1 week Please follow up with your primary care doctor within 1 week. Return to the hospital if you experience recurrent or worsening symptoms. Assessment: See Discharge Summary.
[2023-02-10 14:33] LABS: IgA 285 mg/dL (70-320); IgG 1222 mg/dL (600-1540); IgM 125 mg/dL (50-300)
[2023-02-10 21:52] LABS: Prot Elec - Albumin 3.1 g/dL (3.8-4.8); Prot Elec - Alpha1 0.6 g/dL (0.2-0.3); Prot Elec - Alpha2 0.9 g/dL (0.5-0.9); Prot Elec - Beta 1 0.5 g/dL (0.4-0.6); Prot Elec - Beta 2 0.5 g/dL (0.2-0.5); Prot Elec - Gamma 1.2 g/dL (0.8-1.7); Prot Elec - Total Protein 6.7 g/dL (6.1-8.1)
[2023-02-13 17:23] LABS: Copper, plasma 148 mcg/dL (70-175)
== END 2023-02-09 16:00 | disposition home health service (06) | DRG 812 ==
LOC: HO.ED 14:06 → HO.EDOVER 18:13 → HO.IMC 19:57
PROVIDERS: Internal Medicine; Nurse Practitioner Family; Student in an Organized Health Care Education/Training Program; Admitting Provider Hospitalist; Emergency Provider Emergency Medicine Emergency Medical Services; PCP Internal Medicine Medical Oncology; Visit Provider Family Medicine
DX: D62 Acute posthemorrhagic anemia (principal); I50.32 Chronic diastolic (congestive) heart failure; N17.9 Acute kidney failure, unspecified; I47.20 Ventricular tachycardia, unspecified; E87.5 Hyperkalemia; I25.10 Atherosclerotic heart disease of native coronary artery without angina pectoris; Z20.822 Contact with and (suspected) exposure to COVID-19; I48.0 Paroxysmal atrial fibrillation; I11.0 Hypertensive heart disease with heart failure; M16.0 Bilateral primary osteoarthritis of hip; S70.11XA Contusion of right thigh, initial encounter; W19.XXXA Unspecified fall, initial encounter; E86.0 Dehydration; I27.29 Other secondary pulmonary hypertension; I50.812 Chronic right heart failure; D63.8 Anemia in other chronic diseases classified elsewhere; I95.1 Orthostatic hypotension; Z95.3 Presence of xenogenic heart valve; Z95.1 Presence of aortocoronary bypass graft; Z87.891 Personal history of nicotine dependence; Z79.01 Long term (current) use of anticoagulants; Z79.82 Long term (current) use of aspirin; Z79.899 Other long term (current) drug therapy
CPT/HCPCS: 36415; 71045; 73502; 80048; 80076; 81003; 82272; 82525; 82607; 82728; 82746; 82784; 83010; 83540; 83615; 83735; 83880; 84165; 84484; 85014; 85018; 85025; 85027; 85045; 85610; 86334; 86850; 86880; 86900; 86901; 86923; 87635; 93005; 97162; 99285; P9016

== ENCOUNTER → 2023-02-05 12:24 | Outpatient (BNV) | payer MEDICARE, SELFPAY | PROVIDERS: Emergency Provider Emergency Medicine Emergency Medical Services; PCP Internal Medicine Medical Oncology; Visit Provider Hospitalist | DX: E87.5 Hyperkalemia (principal); S70.11XA Contusion of right thigh, initial encounter; D64.9 Anemia, unspecified; M17.11 Unilateral primary osteoarthritis, right knee | CPT/HCPCS: 99223; 99232; 99233; 99239; G0180 ==

== ENCOUNTER → 2023-02-05 18:01 | Outpatient (BNV) | payer MEDICARE, SELFPAY | PROVIDERS: Admitting Provider Hospitalist; Emergency Provider Emergency Medicine Emergency Medical Services; PCP Internal Medicine Medical Oncology; Visit Provider Internal Medicine | DX: D64.9 Anemia, unspecified (principal); I48.0 Paroxysmal atrial fibrillation | CPT/HCPCS: 99221 ==

== ENCOUNTER → 2023-02-16 13:24 | Outpatient (BNV) | payer MEDICARE, SELFPAY | PROVIDERS: PCP Internal Medicine Medical Oncology; Visit Provider Internal Medicine | DX: D64.9 Anemia, unspecified (principal) | CPT/HCPCS: 99213; 99215 ==

== ENCOUNTER 2023-02-28 10:27 | Outpatient (REF) | payer MEDICARE, SELFPAY ==
[2023-02-28 10:59] LABS: MANUAL DIFF FLAG NO
[2023-02-28 11:03] LABS: Basophils Percent Auto 0.3 % (0-2); Eosinophils Absolute Auto 0.1 X10*3/uL (0.0-0.4); Hematocrit 34.6 % (42.0-52.0); Hemoglobin 10.3 g/dl (14.0-18.0); Imm Gran Abs Auto 0.03 X10*3/uL (0.00-0.03); Imm Gran Pct Auto 0.4 % (0.0-0.4); Lymphocytes Absolute Auto 0.4 X10*3/uL (1.2-4.9); Lymphocytes Percent Auto 5.4 % (20-40); Mean Corpuscular HGB Conc 29.8 g/dl (31.0-36.0); Mean Corpuscular Hemoglobin 28.3 pg (27.0-33.0); Mean Corpuscular Volume 95.1 fL (80.0-98.0); Mean Platelet Volume 9.6 fL (9.4-12.4); Monocytes Absolute Auto 1.3 X10*3/uL (0.1-1.2); Monocytes Percent Auto 17.9 % (2-11); Neutrophils Absolute Auto 5.4 x10*3/uL (2.0-8.3); Platelet Count 286 X10*3/uL (160-400); Red Blood Count 3.64 X10*6/uL (4.60-5.80); Red Cell Distribution Width 20.5 % (11.0-16.0); White Blood Count 7.2 X10*3/uL (4.8-10.8)
[2023-02-28 11:12] LABS: Estimated Average Glucose 111 mg/dL; Hemoglobin A1c % 5.5 % (<6.0)
[2023-02-28 11:29] LABS: Alanine Aminotransferase 24 U/L (0-40); Albumin Level 3.4 g/dL (3.5-5.0); Alkaline Phosphatase 74 U/L (39-117); Anion Gap 16 (12-20); Aspartate Amino Transferase 40 U/L (5-37); Bilirubin Total 2.2 mg/dL (0.0-1.0); Blood Urea Nitrogen 62 mg/dL (9-16); Carbon Dioxide 22 mmol/L (22-29); Chloride 105 mmol/L (96-108); Cholesterol 44 mg/dL (<200); Estimated Glomerular Filt Rate 28; Glucose Fasting 123 mg/dL (60-99); HDL Cholesterol 19 mg/dL (>40); LDL Cholesterol Calculated 12 mg/dL (<100); Potassium 4.5 mmol/L (3.3-5.1); Sodium 138 mmol/L (135-145); Total Protein 7.2 g/dL (6.5-8.0); Triglycerides 68 mg/dL (<150)
[2023-02-28 11:32] LABS: B Type Natriuretic Peptide 1272 pg/mL (<100)
[2023-02-28 13:11] LABS: Creatinine Urine 63.26 mg/dL
== END 2023-02-28 10:28 | disposition home or self-care (01) ==
LOC: HO.LAB 10:27
PROVIDERS: PCP Internal Medicine Medical Oncology; Referring Provider Internal Medicine Medical Oncology; Visit Provider Internal Medicine Advanced Heart Failure and Transplant Cardiology
DX: Z00.00 Encounter for general adult medical examination without abnormal findings (principal); I50.9 Heart failure, unspecified; N52.9 Male erectile dysfunction, unspecified; E11.59 Type 2 diabetes mellitus with other circulatory complications; E66.3 Overweight; E78.5 Hyperlipidemia, unspecified; Z12.5 Encounter for screening for malignant neoplasm of prostate
CPT/HCPCS: 36415; 80053; 80061; 82043; 82570; 83036; 83880; 84153; 85025

== ENCOUNTER 2023-03-16 14:38 | Outpatient (REF) | payer MEDICARE, SELFPAY ==
[2023-03-16 15:03] LABS: Basophils Percent Auto 0.4 % (0-2); Eosinophils Absolute Auto 0.1 X10*3/uL (0.0-0.4); Eosinophils Percent Auto 1.6 % (0-4); Hematocrit 36.1 % (42.0-52.0); Imm Gran Abs Auto 0.01 X10*3/uL (0.00-0.03); Imm Gran Pct Auto 0.1 % (0.0-0.4); Lymphocytes Absolute Auto 0.4 X10*3/uL (1.2-4.9); Lymphocytes Percent Auto 5.5 % (20-40); MANUAL DIFF FLAG SCAN; Mean Corpuscular HGB Conc 30.5 g/dl (31.0-36.0); Mean Corpuscular Hemoglobin 27.6 pg (27.0-33.0); Mean Corpuscular Volume 90.7 fL (80.0-98.0); Mean Platelet Volume 9.7 fL (9.4-12.4); Monocytes Absolute Auto 1.4 X10*3/uL (0.1-1.2); Monocytes Percent Auto 20.1 % (2-11); Neutrophils Percent Auto 72.3 % (45-73); Platelet Count 297 X10*3/uL (160-400); Red Blood Count 3.98 X10*6/uL (4.60-5.80); Red Cell Distribution Width 18.9 % (11.0-16.0); SCAN SMEAR FLAG 1
[2023-03-16 15:25] LABS: Anion Gap 13 (12-20); Blood Urea Nitrogen 49 mg/dL (9-16); Calcium 9.4 mg/dL (8.4-10.2); Carbon Dioxide 33 mmol/L (22-29); Chloride 92 mmol/L (96-108); Estimated Glomerular Filt Rate 44; Glucose Random 142 mg/dL (60-115); Potassium 3.1 mmol/L (3.3-5.1); Sodium 135 mmol/L (135-145)
[2023-03-16 15:35] LABS: SLIDE REVIEW VERIFIED
== END 2023-03-16 14:39 | disposition home or self-care (01) ==
LOC: HO.HVNA 14:38
PROVIDERS: Visit Provider Internal Medicine Medical Oncology
DX: D33.9 Benign neoplasm of central nervous system, unspecified (principal)
CPT/HCPCS: 36415; 80048; 85025

== ENCOUNTER 2023-03-22 12:27 | Outpatient (REF) | payer MEDICARE, SELFPAY ==
[2023-03-22 14:01] LABS: Anion Gap 15 (12-20); Blood Urea Nitrogen 29 mg/dL (9-16); Calcium 9.5 mg/dL (8.4-10.2); Carbon Dioxide 26 mmol/L (22-29); Chloride 101 mmol/L (96-108); Estimated Glomerular Filt Rate 43; Glucose Random 113 mg/dL (60-115); Potassium 4.4 mmol/L (3.3-5.1); Sodium 138 mmol/L (135-145)
[2023-03-22 14:17] LABS: B Type Natriuretic Peptide 804 pg/mL (<100)
== END 2023-03-22 12:28 | disposition home or self-care (01) ==
LOC: HO.LAB 12:27
PROVIDERS: PCP Internal Medicine Medical Oncology; Visit Provider Internal Medicine Advanced Heart Failure and Transplant Cardiology
DX: I50.9 Heart failure, unspecified (principal)
CPT/HCPCS: 36415; 80048; 83880

== ENCOUNTER 2023-03-29 12:08 | Outpatient (REF) | payer MEDICARE, SELFPAY ==
[2023-03-29 13:43] LABS: Anion Gap 17 (12-20); Blood Urea Nitrogen 36 mg/dL (9-16); Calcium 9.4 mg/dL (8.4-10.2); Carbon Dioxide 20 mmol/L (22-29); Chloride 109 mmol/L (96-108); Estimated Glomerular Filt Rate 38; Glucose Random 110 mg/dL (60-115); Potassium 5.8 mmol/L (3.3-5.1); Sodium 140 mmol/L (135-145)
[2023-03-29 13:50] LABS: B Type Natriuretic Peptide 830 pg/mL (<100)
== END 2023-03-29 12:09 | disposition home or self-care (01) ==
LOC: HO.LAB 12:08
PROVIDERS: Visit Provider Internal Medicine Advanced Heart Failure and Transplant Cardiology
DX: I50.9 Heart failure, unspecified (principal)
CPT/HCPCS: 36415; 80048; 83880

== ENCOUNTER 2023-03-30 09:18 | Outpatient (REF) | payer MEDICARE, SELFPAY ==
[2023-03-30 10:08] LABS: Anion Gap 10 (12-20); Carbon Dioxide 21 mmol/L (22-29); Chloride 111 mmol/L (96-108); Potassium 4.4 mmol/L (3.3-5.1); Sodium 138 mmol/L (135-145)
== END 2023-03-30 09:19 | disposition home or self-care (01) ==
LOC: HO.LAB 09:18
PROVIDERS: PCP Internal Medicine Medical Oncology; Visit Provider Internal Medicine Medical Oncology
DX: E87.5 Hyperkalemia (principal)
CPT/HCPCS: 36415; 80051

== ENCOUNTER 2023-04-13 11:23 | Outpatient (REF) | payer MEDICARE, SELFPAY ==
--- NOTE | ~2023-04-13 | XR_ITS ---
EXAMINATION: XR CHEST CLINICAL INFORMATION: Pulmonary embolus. COMPARISON: 02/05/2023 TECHNIQUE: 2 views of the chest were obtained. FINDINGS: Stable biapical pleural thickening. There is airspace disease in the right upper lobe. There is left basilar consolidation with a small/moderate left pleural effusion. Cardiac silhouette is unchanged. Median sternal wires. Aortic valve replacement. XR/XR chest 2V IMPRESSION: New right upper lobe airspace disease. Stable left basilar consolidation with small/moderate left pleural effusion.
[2023-04-13 12:48] LABS: Anion Gap 11 (12-20); Blood Urea Nitrogen 20 mg/dL (9-16); Calcium 9.1 mg/dL (8.4-10.2); Carbon Dioxide 23 mmol/L (22-29); Chloride 108 mmol/L (96-108); Estimated Glomerular Filt Rate 41; Glucose Random 128 mg/dL (60-115); Potassium 4.5 mmol/L (3.3-5.1); Sodium 137 mmol/L (135-145)
[2023-04-13 13:44] LABS: B Type Natriuretic Peptide 781 pg/mL (<100)
== END 2023-04-13 11:24 | disposition home or self-care (01) ==
LOC: HO.LAB 11:23
PROVIDERS: PCP Internal Medicine Medical Oncology; Visit Provider Nurse Practitioner Acute Care
DX: I26.99 Other pulmonary embolism without acute cor pulmonale (principal); I50.30 Unspecified diastolic (congestive) heart failure
CPT/HCPCS: 36415; 71046; 80048; 83880

== ENCOUNTER 2023-04-13 12:20 | Outpatient (REF) | payer MEDICARE, SELFPAY | END 2023-04-13 12:21 | disposition home or self-care (01) | LOC: HO.XRAY 12:20 | PROVIDERS: Visit Provider Nurse Practitioner Acute Care | DX: Z13.89 Encounter for screening for other disorder (principal) ==

== ENCOUNTER 2023-04-22 09:59 | Outpatient (REF) | payer MEDICARE, SELFPAY ==
[2023-04-22 10:27] LABS: MANUAL DIFF FLAG NO
[2023-04-22 10:54] LABS: Basophils Percent Auto 0.6 % (0-2); Eosinophils Absolute Auto 0.1 X10*3/uL (0.0-0.4); Eosinophils Percent Auto 1.5 % (0-4); Hematocrit 36.8 % (42.0-52.0); Hemoglobin 11.3 g/dl (14.0-18.0); Imm Gran Abs Auto 0.01 X10*3/uL (0.00-0.03); Imm Gran Pct Auto 0.2 % (0.0-0.4); Lymphocytes Absolute Auto 0.6 X10*3/uL (1.2-4.9); Lymphocytes Percent Auto 11.7 % (20-40); Mean Corpuscular HGB Conc 30.7 g/dl (31.0-36.0); Mean Platelet Volume 9.1 fL (9.4-12.4); Monocytes Absolute Auto 0.8 X10*3/uL (0.1-1.2); Monocytes Percent Auto 15.6 % (2-11); Neutrophils Absolute Auto 3.8 x10*3/uL (2.0-8.3); Neutrophils Percent Auto 70.4 % (45-73); Platelet Count 219 X10*3/uL (160-400); Red Blood Count 4.18 X10*6/uL (4.60-5.80); Red Cell Distribution Width 18.6 % (11.0-16.0); White Blood Count 5.4 X10*3/uL (4.8-10.8)
[2023-04-22 11:05] LABS: Anion Gap 17 (12-20); Blood Urea Nitrogen 20 mg/dL (9-16); Calcium 9.4 mg/dL (8.4-10.2); Carbon Dioxide 20 mmol/L (22-29); Chloride 106 mmol/L (96-108); Estimated Glomerular Filt Rate 47; Glucose Random 85 mg/dL (60-115); Potassium 4.2 mmol/L (3.3-5.1); Sodium 139 mmol/L (135-145)
[2023-04-22 11:07] LABS: Fibrinogen 523 MG/DL (259-690); Prothrombin Time 24.5 SEC (11.1-13.3)
[2023-04-22 11:21] LABS: Alanine Aminotransferase 40 U/L (0-40); Albumin Level 3.9 g/dL (3.5-5.0); Alkaline Phosphatase 96 U/L (39-117); Anion Gap 16 (12-20); Aspartate Amino Transferase 59 U/L (5-37); Bilirubin Total 0.7 mg/dL (0.0-1.0); Blood Urea Nitrogen 20 mg/dL (9-16); Calcium 9.4 mg/dL (8.4-10.2); Carbon Dioxide 20 mmol/L (22-29); Chloride 106 mmol/L (96-108); Cholesterol 75 mg/dL (<200); Estimated Glomerular Filt Rate 46; Glucose Fasting 86 mg/dL (60-99); HDL Cholesterol 39 mg/dL (>40); LDL Cholesterol Calculated 21 mg/dL (<100); Potassium 4.1 mmol/L (3.3-5.1); Sodium 138 mmol/L (135-145); Total Protein 7.8 g/dL (6.5-8.0); Triglycerides 75 mg/dL (<150)
[2023-04-22 11:28] LABS: Prostate Specific Antigen 0.39 ng/mL (<0.05-4.0)
[2023-04-25 16:59] LABS: Homocysteine 19.8 umol/L (<11.4)
[2023-04-26 21:23] LABS: Protein C Activity 153 % normal (70-180); Protein S Activity rflx Tot&Fr 127 % normal (70-150)
[2023-04-27 18:28] LABS: Prothrombin 20210A NEGATIVE
[2023-04-27 22:14] LABS: PTT (LAC) Screen 51 sec (<=40)
[2023-04-27 22:18] LABS: DRVVT Confirmation Negative (Negative); Hexagonal Phase Neutralization Negative (Negative)
[2023-04-30 02:59] LABS: Factor V Leiden NEGATIVE
== END 2023-04-22 10:00 | disposition home or self-care (01) ==
LOC: HO.LAB 09:59
PROVIDERS: Absent Provider Nurse Practitioner Acute Care; PCP Internal Medicine Medical Oncology; Visit Provider Internal Medicine Medical Oncology
DX: I50.9 Heart failure, unspecified (principal); E11.59 Type 2 diabetes mellitus with other circulatory complications; E66.3 Overweight; E78.5 Hyperlipidemia, unspecified; I35.0 Nonrheumatic aortic (valve) stenosis; I26.99 Other pulmonary embolism without acute cor pulmonale; N40.0 Benign prostatic hyperplasia without lower urinary tract symptoms; Z12.5 Encounter for screening for malignant neoplasm of prostate
CPT/HCPCS: 36415; 80048; 80053; 80061; 81240; 81241; 83090; 84153; 85025; 85300; 85302; 85303; 85306; 85384; 85597; 85598; 85610; 85613; 85730